=== PATIENT | female | born 1965 | race Caucasian/White ===

== ENCOUNTER 2020-11-06 19:40 | Inpatient (IN) ==
[2020-11-06 20:00] VITALS: BMI 34.2
--- NOTE | 2020-11-06 20:38 | DR.SOBA ---
HPI Time Seen Time Seen by Provider: 11/06/20 20:33 Primary Care Physician Primary Care Physician: Toro Complaints Chief Complaint Doctors Comments: on home O2 and worsening covid. 7 days s/p covid dx. Chief Complaint:: shortness of breath. On home O2 at 2 LPM, with home pulse ox running 88 without movement but drops to 86%. COVID-19 Coronavirus risk:travel/contact w/high risk person: Yes Has patient experienced Coronavirus symptoms: Yes Reviewed Nurses Notes Reviewed: Yes Source History Provided: Patient Mode of Arrival Mode of Arrival: Ambulatory Timing Onset of Chief Complaint: 11/04/20 PMH PMH Past Medical History: Yes Past Medical History: Hypertension Past Surgical History: No Family History History of Family Medical Conditions: Yes Family Medical History: Hypertension Infectious screening Have you traveled outside the country in the last 6 months?: No Isolation: Droplet ROS Review of Systems Constitutional: See HPI Eyes: No Symptoms Reported ENTM: No Symptoms Reported Respiratoy: See HPI Cardiovascular: No Symptoms Reported Gastrointestinal/Abdominal: No Symptoms Reported Genitourinary: No Symptoms Reported Neurological: No Symptoms Reported Musculoskeletal: No Symptoms Reported Integumentary: No Symptoms Reported All Other Systems: Reviewed and Negative PE Vital Signs Vitals: Temperature 98.2 F Pulse Rate [Apical] 84 Pulse Rate 82 Respiratory Rate 31 Blood Pressure [Left Arm] 143/82 Blood Pressure 159/75 O2 Sat by Pulse Oximetry 94 General General Appearance: Alert and In No Apparent Distress Head Head Exam: Normal Inspection, Atraumatic and Normocephalic Eyes Eye exam: Normal Appearance and PERRL ENT ENT Exam: Normal Exam Neck Neck Exam: Normal Inspection and Full ROM Respiratory Respiratory Exam: Normal Lung Sounds Bilat; negative Accessory Muscle Use Cardiovascular Cardiovascular Exam: Regular Rate and Normal Heart Sounds Abdominal Exam Abdominal Exam: Normal Inspection and Normal Bowel Sounds Extremities Extremities Exam: Normal Inspection and Full ROM Back Back Exam: Normal Inspection Neurologic Neurological Exam: Alert and Oriented X3 Skin Skin Exam: Warm, Dry and Intact COURSE Treatment Treatment: requiring NRB ROR Labs Reviewed Laboratory Results Reviewed?: Yes Result Diagrams: 11/06/20 20:41 11/06/20 20:41 Laboratory: WBC 11.9 X10^3/uL (3.6-10.0) H 11/06/20 20:41 RBC 4.59 X10^6/uL (3.5-5.4) 11/06/20 20:41 Hgb 16.0 g/dL (12.0-16.0) 11/06/20 20:41 Hct 44.8 % (36.0-47.0) 11/06/20 20:41 MCV 97.6 fL (80.0-100.0) 11/06/20 20:41 MCH 34.8 pg (27.0-34.0) H 11/06/20 20:41 MCHC 35.7 g/dL (33.0-35.0) H 11/06/20 20:41 RDW 12.5 % (11.6-16.5) 11/06/20 20: Plt Count 153 X10^3/uL (150.0-450.0) 11/06/20 20:41 Plt Count Comment Adequate (ADEQUATE) 11/06/20 20:41 MPV 8.3 fL (7.4-11.0) 11/06/20 20:41 Neut % (Auto) 91.8 % (42.0-75.0) H 11/06/20 20:41 Lymph % (Auto) 5.3 % (21.0-51.0) L 11/06/20 20:41 Cameron % (Auto) 2.2 % (0.0-13.0) 11/06/20 20:41 Eos % (Auto) 0.6 % (0.9-2.9) L 11/06/20 20:41 Baso % (Auto) 0.1 % (0.2-1.0) L 11/06/20 20:41 Neut # (Auto) 10.9 x10^3/uL (2.2-4.8) H 11/06/20 20:41 Lymph # (Auto) 0.6 X10^3/uL (1.3-2.9) L 11/06/20 20:41 Cameron # (Auto) 0.3 x10^3/uL (0.3-0.8) 11/06/20 20:41 Eos # (Auto) 0.1 x10^3/uL (0.0-0.2) 11/06/20 20:41 Baso # (Auto) 0.0 X10^3/uL (0.0-0.1) 11/06/20 20:41 Absolute Nucleated RBC 0.0 /100WBC 11/06/20 20:41 Total Counted 100 11/06/20 20:41 Neutrophils % (Manual) 91 % (39-76) H 11/06/20 20:41 Lymphocytes % (Manual) 8 % (13-43) L 11/06/20 20:41 Monocytes % (Manual) 1 % (4-9) L 11/06/20 20:41 Plt Morphology Comment Normal (NORMAL) 11/06/20 20:41 RBC Morphology Normal (NORMAL) 11/06/20 20:41 D-Dimer 0.96 ug/ml (0.0-0.57) H* 11/06/20 20:41 Sample Site Lrad 11/06/20 21:37 ABG pH 7.540 (7.35-7.45) H 11/06/20 21:37 ABG pCO2 33.0 mmHg (35.0-45.0) L 11/06/20 21:37 ABG pO2 60.0 mmHg (80.0-100.0) L 11/06/20 21:37 ABG HCO3 28.2 mmol/L (22-26) H 11/06/20 21:37 ABG O2 Saturation 94.0 % (90-100) 11/06/20 21:37 ABG Base Excess 5.8 mmol/L (-2.0-2.0) H 11/06/20 21:37 Michael Test Pos 11/06/20 21:37 A-a Gradient 212.0 mmHg 11/06/20 21:37 FiO2 44.0 11/06/20 21:37 Blood Gas Comments [facility] well 11/06/20 21:37 Sodium 136 mmol/L (136-145) 11/06/20 20:41 Corrected Sodium 138 mmol/L (136-145) 11/06/20 20:41 Potassium 4.0 mmol/L (3.5-5.1) 11/06/20 20:41 Chloride 99 mmol/L (98-107) 11/06/20 20:41 Carbon Dioxide 29.1 mmol/L (21-32) 11/06/20 20:41 BUN 10 mg/dL (7-18) 11/06/20 20:41 Creatinine 1.04 mg/dL (0.55-1.02) H 11/06/20 20:41 Est GFR (MDRD) Af Amer > 60 (>60) 11/06/20 20:41 Est GFR (MDRD) Non-Af 58 (>60) L 11/06/20 20:41 Glucose 198 mg/dL (65-99) H 11/06/20 20:41 Calcium 9.0 mg/dL (8.5-10.1) 11/06/20 20:41 Corrected Calcium 10.2 mg/dL (8.5-10.1) H 11/06/20 20:41 Ferritin 1723 ng/mL (8-252) H 11/06/20 20:41 Total Bilirubin 1.90 mg/dL (0.2-1.0) H 11/06/20 20:41 AST 54 Units/L (15-37) H 11/06/20 20:41 ALT 77 Units/L (12-78) 11/06/20 20:41 Alkaline Phosphatase 54 Units/L (46-116) 11/06/20 20:41 C-Reactive Protein 236.70 mg/L (0-3.0) H 11/06/20 20:41 B-Natriuretic Peptide 32.1 pg/mL (0-79) 11/06/20 20:41 Total Protein 7.3 g/dL (6.4-8.2) 11/06/20 20:41 Albumin 2.5 g/dL (3.4-5.0) L 11/06/20 20:41 Globulin 4.8 g/dL (2.5-4.5) H 11/06/20 20:41 Albumin/Globulin Ratio 0.5 Ratio (1.1-2.1) L 11/06/20 20:41 XRAY X-ray Results: CT neg for PE Opioid Opioid Risk Tool Age (Flo box if 16-45): No History of Preadolescent Sexual Abuse: No Total: 0 Total Score Risk Category: Low Risk Copyright: Dionisio TENORIO predicting aberrant behaviors Diagnosis Discharge Problem: COVID, Dyspnea ADDITIONAL NOTES Additional Notes Additional Notes: accepted per Dr Rivas
[2020-11-06 20:50] LABS: MEAN CORPUSCULAR HEMOGLOBIN 34.8 pg (27.0-34.0); MEAN CORPUSCULAR VOLUME 97.6 fL (80.0-100.0); WHITE BLOOD COUNT 11.9 X10^3/uL (3.6-10.0)
[2020-11-06 20:53] LABS: BASOPHILS % (AUTO) 0.1 % (0.2-1.0); EOSINOPHILS # (AUTO) 0.1 x10^3/uL (0.0-0.2); EOSINOPHILS % (AUTO) 0.6 % (0.9-2.9); HEMATOCRIT 44.8 % (36.0-47.0); LYMPHOCYTES # (AUTO) 0.6 X10^3/uL (1.3-2.9); LYMPHOCYTES % (AUTO) 5.3 % (21.0-51.0); MEAN CORPUSCULAR HGB CONC 35.7 g/dL (33.0-35.0); MEAN PLATELET VOLUME 8.3 fL (7.4-11.0); MONOCYTES # (AUTO) 0.3 x10^3/uL (0.3-0.8); MONOCYTES % (AUTO) 2.2 % (0.0-13.0); NEUTROPHILS # (AUTO) 10.9 x10^3/uL (2.2-4.8); NEUTROPHILS % (AUTO) 91.8 % (42.0-75.0); PLATELET COUNT 153 X10^3/uL (150.0-450.0); RED BLOOD COUNT 4.59 X10^6/uL (3.5-5.4); RED CELL DISTRIBUTION WIDTH 12.5 % (11.6-16.5)
--- NOTE | 2020-11-06 20:55 | RAD ---
CHEST, 1 VIEWHISTORY:shortness of breath. On home O2 at 2 LPM, with home pulse ox running 88 without movement but drops to 86%Study: Single view of the chest.Comparison:NoneFindings:Cardiomegaly and pulmonary vascular congestion. No focal consolidations, pleural effusions or pneumothorax. Osseous structures demonstrate no acute abnormality.IMPRESSION:1. Cardiomegaly and pulmonary vascular congestion.Electronically signed by: MACEY LOCKHART (Nov 06, 2020 20:53:40)
[2020-11-06 21:03] LABS: ALANINE AMINOTRANSFERASE 77 Units/L (12-78); ALBUMIN 2.5 g/dL (3.4-5.0); ALKALINE PHOSPHATASE 54 Units/L (46-116); ASPARTATE AMINO TRANSFERASE 54 Units/L (15-37); BLOOD UREA NITROGEN 10 mg/dL (7-18); CARBON DIOXIDE 29.1 mmol/L (21-32); CHLORIDE 99 mmol/L (98-107); COR CA(FOR HYPOALB) 10.2 mg/dL (8.5-10.1); COR NA(FOR HYPERGLY) 138 mmol/L (136-145); CREATININE 1.04 mg/dL (0.55-1.02); SODIUM 136 mmol/L (136-145); TOTAL PROTEIN 7.3 g/dL (6.4-8.2); eGFR NON BLACK RACES 58 (>60)
[2020-11-06 21:26] LABS: PLATELET MORPHOLOGY COMMENT NORMAL (NORMAL)
[2020-11-06 21:41] LABS: ABG BASE EXCESS 5.8 mmol/L (-2.0-2.0); ABG HCO3 28.2 mmol/L (22-26)
[2020-11-06 21:42] LABS: ABG ALLEN TEST POS
[2020-11-06] MEDS ORDERED: NS 100 ML IV 100 ML ONE (22:58)
[2020-11-06] MEDS: REMDESIVIR 200 MG in NS 100 ML IV 140 ML IV ONE (23:00)
--- NOTE | 2020-11-06 23:52 | CT ---
STUDY: CTA CHEST WITH IV CONTRASTCOMPARISON: NoneTECHNIQUE: axial images were acquired of the chest with IV contrast for a CT angiogram. Coronal and sagittal images were provided. All images were reviewed in a variety of windows and levels. 3D 8 mm thick MIPS images were provided.RADIATION REDUCTION TECHNIQUE: Automated exposure control, Adjustment of the mA and/or kV according to patient size, or iterative reconstruction techniques were used. 8 mm thick axial MIPS images were provided.HISTORY: shortness of breath. On home O2 at 2 LPM, with home pulse ox running 88 without movement but drops to 86%. ^ D-DIMER .96FINDINGS:CHEST:THYROID GLANDS: The thyroid gland is unremarkable.HEART AND VESSELS: The heart size is within normal limits.There is no evidence of pericardial effusion. Thoracic aorta is normal size without evidence of an aneurysm or dissection.Main pulmonary artery size is within normal limits. There are no filling defect seen within the visualized pulmonary arteries to suggest a pulmonary embolism.LYMPH NODES: There is no evidence of axillary, mediastinal, or hilar lymphadenopathy.AIRWAY: The trachea and mainstem bronchi are patent.No intraluminal lesions are seen.LUNGS: Diffuse ground-glass opacities are noted throughout the right and left lung involving the subpleural surface and major fissures.ESOPHAGUS: The esophagus is grossly unremarkable.BONES: The visualized bones demonstrate degenerative changes. There are no concerning lytic or blastic lesions identified.UPPER ABDOMINAL STRUCTURES: The visualized upper abdominal structures demonstrate prominence of the right and left collecting system seen as symmetric bilateral hydronephrosis.IMPRESSSION:1. No evidence of pulmonary embolism, thoracic aortic aneurysm, or dissection2. Heart size is normal and there is no evidence of pericardial effusion3. The above findings demonstrate COMMON CT imaging features of COVID-19 pneumonia. Reference: Luis et al. Radiology. 2020Electronically signed by: Russell Smyth (Nov 06, 2020 23:50:16)
[2020-11-07] MEDS ORDERED: REGEN-COV VIAL 10 ML, DRUG FILTER EXTENSION SET * 1 EA in NS 100 ML IV 100 ML IV ONE ×2 (00:24)
[2020-11-07] MEDS ORDERED: DECADRON INJ ONE (01:42)
[2020-11-07] MEDS ORDERED: REMDESIVIR IV ONE (01:43)
[2020-11-07] MEDS ORDERED: NS 100 ML IV 100 ML ONE ×2 (01:43→08:41)
[2020-11-07] MEDS: DECADRON INJ IVP ONE ×2 (02:03→02:04)
[2020-11-07] MEDS: REMDESIVIR 200 MG in NS 100 ML IV 140 ML IV ONE (02:04)
[2020-11-07] MEDS ORDERED: ROCEPHIN 1 GRAM IV PREMIX 1 G/50 ML IV.SOLN. IV ONE ×2 (04:04→04:07)
[2020-11-07] MEDS ORDERED: NS 500 ML IV 500 ML IV ONE (04:14)
[2020-11-07] MEDS ORDERED: PHARMACY CONSULT - IVERMECTIN XX SCH (08:00)
[2020-11-07] MEDS ORDERED: PHARMACY CONSULT - LOVENOX XX SCH (08:00)
[2020-11-07] MEDS: PULMICORT NEB TX 0.5 MG NEB SCH ×2 (08:30→21:00)
[2020-11-07] MEDS: BROVANA IN SCH ×2 (08:30→21:00)
[2020-11-07] MEDS ORDERED: THIAMINE HCL INJ ONE (08:39)
[2020-11-07] MEDS ORDERED: PROTONIX TAB 40 MG PO ONE (08:39)
[2020-11-07] MEDS ORDERED: IVERMECTIN ONE (08:39)
[2020-11-07] MEDS ORDERED: ZINC SULFATE ONE (08:40)
[2020-11-07] MEDS ORDERED: ASCORBIC ACID INJ MULTI-DOSE VIAL IV ONE (08:40)
[2020-11-07] MEDS ORDERED: LIPITOR TAB 80 MG ONE (08:40)
[2020-11-07] MEDS ORDERED: PEPCID TAB 40 MG ONE (08:40)
[2020-11-07] MEDS ORDERED: SOLU-Medrol 40 MG VIAL ONE ×2 (08:40→14:49)
[2020-11-07] MEDS ORDERED: NS 1000 ML 1,000 ML ONE (08:40)
[2020-11-07] MEDS: IVERMECTIN PO SCH (08:58)
[2020-11-07] MEDS: ASCORBIC ACID INJ MULTI-DOSE VIAL 1,500 MG in NS 100 ML IV 100 ML IV SCH ×4 (08:58→22:00)
[2020-11-07] MEDS: ZINC SULFATE PO SCH ×2 (08:59→22:00)
[2020-11-07] MEDS: LIPITOR TAB 80 MG PO SCH (08:59)
[2020-11-07] MEDS: SOLU-Medrol 125 MG VIAL IVP SCH ×3 (09:00→22:00)
[2020-11-07] MEDS: PEPCID TAB 40 MG PO SCH ×2 (09:00→22:00)
[2020-11-07] MEDS ORDERED: BROVANA IN SCH (09:00)
[2020-11-07] MEDS ORDERED: VITAMIN A PO SCH (09:00)
[2020-11-07] MEDS ORDERED: PULMICORT NEB TX 0.5 MG NEB SCH (09:00)
[2020-11-07] MEDS ORDERED: VITAMIN D (1.25MG) PO SCH (09:00)
[2020-11-07] MEDS: THIAMINE HCL INJ IVP SCH ×2 (09:01→22:00)
[2020-11-07] MEDS: PROTONIX INJ 40 MG VIAL IVP SCH ×2 (09:01→22:00)
[2020-11-07] MEDS ORDERED: LOVENOX INJ 100 MG SYR SC ONE (09:11)
[2020-11-07] MEDS: LOVENOX INJ 100 MG SYR SC SCH ×2 (10:24→22:00)
[2020-11-07] MEDS: CYTOTEC PO SCH ×2 (15:14→22:00)
[2020-11-07] MEDS: MELATONIN PO SCH (22:00)
[2020-11-08] MEDS: NS 1000 ML 1,000 ML IV SCH ×2 (00:24→09:08)
[2020-11-08] MEDS: ASCORBIC ACID INJ MULTI-DOSE VIAL 1,500 MG in NS 100 ML IV 100 ML IV SCH ×4 (02:35→21:47)
[2020-11-08 05:19] LABS: BASOPHILS % (AUTO) 0 % (0.2-1.0); HEMATOCRIT 38.9 % (36.0-47.0); LYMPHOCYTES # (AUTO) 0.4 X10^3/uL (1.3-2.9); LYMPHOCYTES % (AUTO) 5.2 % (21.0-51.0); MEAN CORPUSCULAR HEMOGLOBIN 34.9 pg (27.0-34.0); MEAN CORPUSCULAR VOLUME 96.8 fL (80.0-100.0); MEAN PLATELET VOLUME 8.8 fL (7.4-11.0); MONOCYTES # (AUTO) 0.1 x10^3/uL (0.3-0.8); MONOCYTES % (AUTO) 1.7 % (0.0-13.0); NEUTROPHILS # (AUTO) 6.4 x10^3/uL (2.2-4.8); NEUTROPHILS % (AUTO) 93.1 % (42.0-75.0); PLATELET COUNT 147 X10^3/uL (150.0-450.0); RED BLOOD COUNT 4.02 X10^6/uL (3.5-5.4); RED CELL DISTRIBUTION WIDTH 12.1 % (11.6-16.5); WHITE BLOOD COUNT 6.9 X10^3/uL (3.6-10.0)
[2020-11-08 05:30] LABS: ALANINE AMINOTRANSFERASE 53 Units/L (12-78); ALBUMIN 2.1 g/dL (3.4-5.0); ALKALINE PHOSPHATASE 47 Units/L (46-116); ASPARTATE AMINO TRANSFERASE 34 Units/L (15-37); BLOOD UREA NITROGEN 21 mg/dL (7-18); CALCIUM 8.6 mg/dL (8.5-10.1); CARBON DIOXIDE 30.6 mmol/L (21-32); CHLORIDE 102 mmol/L (98-107); COR CA(FOR HYPOALB) 10.1 mg/dL (8.5-10.1); COR NA(FOR HYPERGLY) 142 mmol/L (136-145); CREATININE 1.08 mg/dL (0.55-1.02); SODIUM 139 mmol/L (136-145); eGFR NON BLACK RACES 56 (>60)
[2020-11-08] MEDS: CYTOTEC PO SCH ×3 (06:17→21:48)
[2020-11-08] MEDS: SOLU-Medrol 125 MG VIAL IVP SCH ×3 (06:17→21:47)
[2020-11-08 06:23] LABS: PLATELET MORPHOLOGY COMMENT NORMAL (NORMAL)
[2020-11-08] MEDS: IVERMECTIN PO SCH (09:04)
[2020-11-08] MEDS: LIPITOR TAB 80 MG PO SCH (09:05)
[2020-11-08] MEDS: LOVENOX INJ 100 MG SYR SC SCH ×2 (09:05→21:47)
[2020-11-08] MEDS: ZINC SULFATE PO SCH ×2 (09:06→21:46)
[2020-11-08] MEDS: THIAMINE HCL INJ IVP SCH ×2 (09:06→21:48)
[2020-11-08] MEDS: PROTONIX INJ 40 MG VIAL IVP SCH ×2 (09:06→21:48)
[2020-11-08] MEDS: PEPCID TAB 40 MG PO SCH ×2 (09:06→21:46)
[2020-11-08] MEDS: PULMICORT NEB TX 0.5 MG NEB SCH ×2 (09:34→20:35)
[2020-11-08] MEDS: BROVANA IN SCH ×2 (09:34→20:35)
[2020-11-08] MEDS ORDERED: CALAN SR 240 MG PO SCH (10:00)
[2020-11-08] MEDS ORDERED: CALAN SR 180 MG PO ONE (11:06)
[2020-11-08] MEDS: CALAN SR 180 MG PO SCH (11:20)
[2020-11-08] MEDS: SYNTHROID 25 mcg TAB PO SCH (11:21)
[2020-11-08] MEDS: MELATONIN PO SCH (21:48)
[2020-11-09] MEDS: ASCORBIC ACID INJ MULTI-DOSE VIAL 1,500 MG in NS 100 ML IV 100 ML IV SCH ×4 (02:13→21:00)
[2020-11-09] MEDS: SOLU-Medrol 125 MG VIAL IVP SCH ×3 (05:26→20:59)
[2020-11-09] MEDS: CYTOTEC PO SCH ×3 (05:26→20:59)
[2020-11-09 06:06] LABS: BASOPHILS % (AUTO) 0.3 % (0.2-1.0); HEMOGLOBIN 13.7 g/dL (12.0-16.0); LYMPHOCYTES # (AUTO) 0.2 X10^3/uL (1.3-2.9); LYMPHOCYTES % (AUTO) 2.8 % (21.0-51.0); MEAN CORPUSCULAR HEMOGLOBIN 34.7 pg (27.0-34.0); MEAN CORPUSCULAR HGB CONC 35.2 g/dL (33.0-35.0); MEAN CORPUSCULAR VOLUME 98.5 fL (80.0-100.0); MEAN PLATELET VOLUME 8.7 fL (7.4-11.0); MONOCYTES # (AUTO) 0.2 x10^3/uL (0.3-0.8); MONOCYTES % (AUTO) 2.4 % (0.0-13.0); NEUTROPHILS # (AUTO) 8.2 x10^3/uL (2.2-4.8); NEUTROPHILS % (AUTO) 94.5 % (42.0-75.0); PLATELET COUNT 147 X10^3/uL (150.0-450.0); RED BLOOD COUNT 3.96 X10^6/uL (3.5-5.4); RED CELL DISTRIBUTION WIDTH 12.3 % (11.6-16.5); WHITE BLOOD COUNT 8.7 X10^3/uL (3.6-10.0)
[2020-11-09 06:08] LABS: ABG ALLEN TEST POS; ABG BASE EXCESS 3.2 mmol/L (-2.0-2.0); ABG HCO3 26.9 mmol/L (22-26)
[2020-11-09 06:58] LABS: ALANINE AMINOTRANSFERASE 52 Units/L (12-78); ALKALINE PHOSPHATASE 57 Units/L (46-116); ASPARTATE AMINO TRANSFERASE 41 Units/L (15-37); BLOOD UREA NITROGEN 22 mg/dL (7-18); CALCIUM 8.2 mg/dL (8.5-10.1); CARBON DIOXIDE 26.7 mmol/L (21-32); CHLORIDE 103 mmol/L (98-107); COR CA(FOR HYPOALB) 9.8 mg/dL (8.5-10.1); COR NA(FOR HYPERGLY) 143 mmol/L (136-145); CREATININE 1.12 mg/dL (0.55-1.02); SODIUM 139 mmol/L (136-145); TOTAL PROTEIN 6.6 g/dL (6.4-8.2); eGFR NON BLACK RACES 53 (>60)
--- NOTE | 2020-11-09 07:18 | RAD ---
HISTORYCOVID+STUDYCHEST, 1 [id number]/23/2021.TECHNIQUEAP view of the chestFINDINGSCardiac and mediastinal contours are within normal limits. No significant change mid and lower lung predominant hazy opacities. No definite pleural effusion or pneumothorax. Soft tissue attenuation limits evaluation.IMPRESSIONNo significant change in COVID pneumonia.Electronically signed by: London Moody (Nov 09, 2020 07:15:58)
[2020-11-09 08:24] LABS: PLATELET MORPHOLOGY COMMENT NORMAL (NORMAL)
[2020-11-09] MEDS: PULMICORT NEB TX 0.5 MG NEB SCH ×2 (09:12→21:10)
[2020-11-09] MEDS: BROVANA IN SCH ×2 (09:12→21:10)
[2020-11-09] MEDS: LOVENOX INJ 100 MG SYR SC SCH ×2 (10:00→20:58)
[2020-11-09] MEDS: PROTONIX INJ 40 MG VIAL IVP SCH ×2 (10:30→20:58)
[2020-11-09] MEDS: ACTOS PO SCH (10:32)
[2020-11-09] MEDS: GLUCOPHAGE XR 24-HR PO SCH ×2 (10:33→20:58)
[2020-11-09] MEDS: THIAMINE HCL INJ IVP SCH ×2 (10:33→21:00)
[2020-11-09] MEDS: CALAN SR 180 MG PO SCH (10:34)
[2020-11-09] MEDS: PEPCID TAB 40 MG PO SCH ×2 (10:34→20:59)
[2020-11-09] MEDS: VITAMIN D3 125 mcg (5,000 UNITS) PO SCH (10:34)
[2020-11-09] MEDS: SYNTHROID 25 mcg TAB PO SCH (10:34)
[2020-11-09] MEDS: NS 1000 ML 1,000 ML IV SCH (10:35)
[2020-11-09] MEDS: LIPITOR TAB 80 MG PO SCH (10:35)
[2020-11-09] MEDS: ZINC SULFATE PO SCH ×2 (10:35→20:59)
[2020-11-09] MEDS: IVERMECTIN PO SCH (10:35)
[2020-11-09] MEDS: VITAMIN A PO SCH (10:36)
[2020-11-09] MEDS: MELATONIN PO SCH (20:59)
[2020-11-09] MEDS: FLEXERIL TAB 10 MG PO PRN (20:59)
[2020-11-10] MEDS: ASCORBIC ACID INJ MULTI-DOSE VIAL 1,500 MG in NS 100 ML IV 100 ML IV SCH ×4 (02:31→21:30)
[2020-11-10] MEDS: SOLU-Medrol 125 MG VIAL IVP SCH ×3 (05:33→21:31)
[2020-11-10] MEDS: NS 1000 ML 1,000 ML IV SCH ×2 (05:33→08:33)
[2020-11-10] MEDS: CYTOTEC PO SCH ×3 (05:33→21:31)
[2020-11-10 05:56] LABS: ALANINE AMINOTRANSFERASE 50 Units/L (12-78); ALKALINE PHOSPHATASE 62 Units/L (46-116); ASPARTATE AMINO TRANSFERASE 45 Units/L (15-37); BLOOD UREA NITROGEN 20 mg/dL (7-18); CARBON DIOXIDE 25.3 mmol/L (21-32); CHLORIDE 102 mmol/L (98-107); COR CA(FOR HYPOALB) 9.6 mg/dL (8.5-10.1); COR NA(FOR HYPERGLY) 142 mmol/L (136-145); CREATININE 1.14 mg/dL (0.55-1.02); SODIUM 138 mmol/L (136-145); TOTAL PROTEIN 6.4 g/dL (6.4-8.2); eGFR NON BLACK RACES 52 (>60)
[2020-11-10 06:12] LABS: BASOPHILS % (AUTO) 0 % (0.2-1.0); HEMATOCRIT 39.8 % (36.0-47.0); LYMPHOCYTES # (AUTO) 0.2 X10^3/uL (1.3-2.9); LYMPHOCYTES % (AUTO) 3.3 % (21.0-51.0); MEAN CORPUSCULAR HEMOGLOBIN 34.7 pg (27.0-34.0); MEAN CORPUSCULAR HGB CONC 35.1 g/dL (33.0-35.0); MEAN CORPUSCULAR VOLUME 98.7 fL (80.0-100.0); MEAN PLATELET VOLUME 8.6 fL (7.4-11.0); MONOCYTES # (AUTO) 0.2 x10^3/uL (0.3-0.8); MONOCYTES % (AUTO) 2.4 % (0.0-13.0); NEUTROPHILS % (AUTO) 94.3 % (42.0-75.0); PLATELET COUNT 138 X10^3/uL (150.0-450.0); RED BLOOD COUNT 4.04 X10^6/uL (3.5-5.4); RED CELL DISTRIBUTION WIDTH 12.4 % (11.6-16.5); WHITE BLOOD COUNT 6.3 X10^3/uL (3.6-10.0)
[2020-11-10 07:12] LABS: PLATELET MORPHOLOGY COMMENT NORMAL (NORMAL)
[2020-11-10] MEDS: LOVENOX INJ 100 MG SYR SC SCH ×2 (08:31→21:58)
[2020-11-10] MEDS: PROTONIX INJ 40 MG VIAL IVP SCH ×2 (08:31→21:31)
[2020-11-10] MEDS: PEPCID TAB 40 MG PO SCH ×2 (08:32→21:30)
[2020-11-10] MEDS: CALAN SR 180 MG PO SCH (08:32)
[2020-11-10] MEDS: IVERMECTIN PO SCH (08:32)
[2020-11-10] MEDS: GLUCOPHAGE XR 24-HR PO SCH ×2 (08:32→21:30)
[2020-11-10] MEDS: LIPITOR TAB 80 MG PO SCH (08:33)
[2020-11-10] MEDS: ACTOS PO SCH (08:33)
[2020-11-10] MEDS: SYNTHROID 25 mcg TAB PO SCH (08:33)
[2020-11-10] MEDS: VITAMIN D3 125 mcg (5,000 UNITS) PO SCH (08:34)
[2020-11-10] MEDS: VITAMIN A PO SCH (08:34)
[2020-11-10] MEDS: THIAMINE HCL INJ IVP SCH ×2 (08:34→21:31)
[2020-11-10] MEDS: ZINC SULFATE PO SCH ×2 (08:34→21:31)
[2020-11-10] MEDS: PULMICORT NEB TX 0.5 MG NEB SCH ×2 (10:20→21:55)
[2020-11-10] MEDS: BROVANA IN SCH ×2 (10:20→21:55)
[2020-11-10] MEDS: MELATONIN PO SCH (21:30)
[2020-11-10] MEDS: FLEXERIL TAB 10 MG PO PRN (21:31)
[2020-11-11] MEDS: ASCORBIC ACID INJ MULTI-DOSE VIAL 1,500 MG in NS 100 ML IV 100 ML IV SCH ×4 (02:24→20:34)
[2020-11-11] MEDS: SOLU-Medrol 125 MG VIAL IVP SCH ×3 (05:29→20:46)
[2020-11-11] MEDS: CYTOTEC PO SCH ×3 (05:29→21:00)
[2020-11-11] MEDS: NS 1000 ML 1,000 ML IV SCH (08:06)
[2020-11-11] MEDS: BROVANA IN SCH ×2 (09:05→22:00)
[2020-11-11] MEDS: PULMICORT NEB TX 0.5 MG NEB SCH ×2 (09:05→22:00)
[2020-11-11] MEDS: PROTONIX INJ 40 MG VIAL IVP SCH ×2 (09:27→20:45)
[2020-11-11] MEDS: GLUCOPHAGE XR 24-HR PO SCH ×2 (09:27→20:37)
[2020-11-11] MEDS: CALAN SR 180 MG PO SCH (09:28)
[2020-11-11] MEDS: PEPCID TAB 40 MG PO SCH ×2 (09:28→20:37)
[2020-11-11] MEDS: IVERMECTIN PO SCH (09:28)
[2020-11-11] MEDS: VITAMIN D3 125 mcg (5,000 UNITS) PO SCH (09:29)
[2020-11-11] MEDS: ZINC SULFATE PO SCH ×2 (09:29→20:37)
[2020-11-11] MEDS: LIPITOR TAB 80 MG PO SCH (09:29)
[2020-11-11] MEDS: ACTOS PO SCH (09:29)
[2020-11-11] MEDS: SYNTHROID 25 mcg TAB PO SCH (09:29)
[2020-11-11] MEDS: THIAMINE HCL INJ IVP SCH ×2 (09:29→20:44)
[2020-11-11] MEDS: VITAMIN A PO SCH (09:29)
[2020-11-11] MEDS: LOVENOX INJ 100 MG SYR SC SCH ×2 (10:21→20:42)
[2020-11-11] MEDS: MELATONIN PO SCH (20:37)
[2020-11-12] MEDS: SOLU-Medrol 125 MG VIAL IVP SCH ×4 (01:54→22:24)
[2020-11-12] MEDS: ASCORBIC ACID INJ MULTI-DOSE VIAL 1,500 MG in NS 100 ML IV 100 ML IV SCH ×4 (02:03→22:26)
[2020-11-12] MEDS: NS 1000 ML 1,000 ML IV SCH ×2 (03:28→20:19)
[2020-11-12] MEDS: CYTOTEC PO SCH ×3 (05:01→22:23)
[2020-11-12 05:53] LABS: BASOPHILS % (AUTO) 0.2 % (0.2-1.0); HEMATOCRIT 38.9 % (36.0-47.0); HEMOGLOBIN 13.7 g/dL (12.0-16.0); LYMPHOCYTES # (AUTO) 0.2 X10^3/uL (1.3-2.9); LYMPHOCYTES % (AUTO) 2.1 % (21.0-51.0); MEAN CORPUSCULAR HEMOGLOBIN 34.2 pg (27.0-34.0); MEAN CORPUSCULAR HGB CONC 35.1 g/dL (33.0-35.0); MEAN CORPUSCULAR VOLUME 97.4 fL (80.0-100.0); MEAN PLATELET VOLUME 8.9 fL (7.4-11.0); MONOCYTES # (AUTO) 0.1 x10^3/uL (0.3-0.8); MONOCYTES % (AUTO) 1.2 % (0.0-13.0); NEUTROPHILS # (AUTO) 6.9 x10^3/uL (2.2-4.8); NEUTROPHILS % (AUTO) 96.5 % (42.0-75.0); PLATELET COUNT 100 X10^3/uL (150.0-450.0); RED CELL DISTRIBUTION WIDTH 12.2 % (11.6-16.5); WHITE BLOOD COUNT 7.2 X10^3/uL (3.6-10.0)
[2020-11-12 06:14] LABS: ALANINE AMINOTRANSFERASE 62 Units/L (12-78); ALKALINE PHOSPHATASE 79 Units/L (46-116); ASPARTATE AMINO TRANSFERASE 63 Units/L (15-37); BLOOD UREA NITROGEN 18 mg/dL (7-18); CALCIUM 7.3 mg/dL (8.5-10.1); CARBON DIOXIDE 29.7 mmol/L (21-32); CHLORIDE 104 mmol/L (98-107); COR CA(FOR HYPOALB) 8.9 mg/dL (8.5-10.1); COR NA(FOR HYPERGLY) 144 mmol/L (136-145); SODIUM 141 mmol/L (136-145); TOTAL PROTEIN 5.6 g/dL (6.4-8.2); eGFR NON BLACK RACES > 60 (>60)
[2020-11-12] MEDS: BROVANA IN SCH ×2 (08:39→21:08)
[2020-11-12] MEDS: PULMICORT NEB TX 0.5 MG NEB SCH ×2 (08:39→21:08)
[2020-11-12 09:02] LABS: PLATELET MORPHOLOGY COMMENT NORMAL (NORMAL)
[2020-11-12] MEDS: GLUCOPHAGE XR 24-HR PO SCH ×2 (09:28→22:24)
[2020-11-12] MEDS: ZINC SULFATE PO SCH ×2 (09:28→22:23)
[2020-11-12] MEDS: ACTOS PO SCH (09:28)
[2020-11-12] MEDS: CALAN SR 180 MG PO SCH (09:28)
[2020-11-12] MEDS: SYNTHROID 25 mcg TAB PO SCH (09:28)
[2020-11-12] MEDS: PROTONIX INJ 40 MG VIAL IVP SCH ×2 (09:29→22:25)
[2020-11-12] MEDS: LIPITOR TAB 80 MG PO SCH (09:29)
[2020-11-12] MEDS: LOVENOX INJ 100 MG SYR SC SCH (09:29)
[2020-11-12] MEDS: THIAMINE HCL INJ IVP SCH ×2 (09:30→22:23)
[2020-11-12] MEDS: VITAMIN A PO SCH (09:30)
[2020-11-12] MEDS: VITAMIN D3 125 mcg (5,000 UNITS) PO SCH (09:31)
[2020-11-12] MEDS: PEPCID TAB 40 MG PO SCH ×2 (09:49→22:25)
[2020-11-12] MEDS ORDERED: NS 1/2 1000 ML IV 1,000 ML IV ONE ×2 (12:55→20:47)
[2020-11-12] MEDS: NS 1/2 1000 ML IV 1,000 ML IV SCH ×2 (12:56→22:20)
[2020-11-12] MEDS: ELIQUIS PO SCH ×2 (12:56→22:24)
[2020-11-12] MEDS: PERIACTIN TAB 4 MG PO PRN (22:24)
[2020-11-12] MEDS: MELATONIN PO SCH (22:25)
[2020-11-12] MEDS: MAGIC MOUTHWASH MT SCH (22:27)
[2020-11-13] MEDS: SOLU-Medrol 125 MG VIAL IVP SCH ×4 (02:14→22:31)
[2020-11-13] MEDS: ASCORBIC ACID INJ MULTI-DOSE VIAL 1,500 MG in NS 100 ML IV 100 ML IV SCH ×4 (02:14→22:33)
[2020-11-13] MEDS ORDERED: NS 1/2 1000 ML IV 1,000 ML IV ONE ×2 (04:09→15:36)
[2020-11-13] MEDS: CYTOTEC PO SCH ×3 (05:05→22:30)
[2020-11-13] MEDS: MAALOX or MYLANTA PO PRN (05:30)
[2020-11-13 06:07] LABS: BASOPHILS % (AUTO) 0.2 % (0.2-1.0); HEMATOCRIT 38.7 % (36.0-47.0); HEMOGLOBIN 13.6 g/dL (12.0-16.0); LYMPHOCYTES # (AUTO) 0.1 X10^3/uL (1.3-2.9); LYMPHOCYTES % (AUTO) 1.5 % (21.0-51.0); MEAN CORPUSCULAR HEMOGLOBIN 34.6 pg (27.0-34.0); MEAN CORPUSCULAR HGB CONC 35.3 g/dL (33.0-35.0); MEAN PLATELET VOLUME 8.8 fL (7.4-11.0); MONOCYTES # (AUTO) 0.1 x10^3/uL (0.3-0.8); MONOCYTES % (AUTO) 1.2 % (0.0-13.0); NEUTROPHILS # (AUTO) 8.2 x10^3/uL (2.2-4.8); NEUTROPHILS % (AUTO) 97.1 % (42.0-75.0); PLATELET COUNT 96 X10^3/uL (150.0-450.0); RED BLOOD COUNT 3.95 X10^6/uL (3.5-5.4); RED CELL DISTRIBUTION WIDTH 12.3 % (11.6-16.5); WHITE BLOOD COUNT 8.4 X10^3/uL (3.6-10.0)
[2020-11-13 06:10] LABS: ALANINE AMINOTRANSFERASE 53 Units/L (12-78); ALBUMIN 1.8 g/dL (3.4-5.0); ALKALINE PHOSPHATASE 95 Units/L (46-116); ASPARTATE AMINO TRANSFERASE 49 Units/L (15-37); BLOOD UREA NITROGEN 19 mg/dL (7-18); CALCIUM 7.6 mg/dL (8.5-10.1); CARBON DIOXIDE 28.5 mmol/L (21-32); CHLORIDE 105 mmol/L (98-107); COR CA(FOR HYPOALB) 9.4 mg/dL (8.5-10.1); COR NA(FOR HYPERGLY) 143 mmol/L (136-145); CREATININE 0.82 mg/dL (0.55-1.02); SODIUM 140 mmol/L (136-145); TOTAL PROTEIN 5.9 g/dL (6.4-8.2); eGFR NON BLACK RACES > 60 (>60)
[2020-11-13 07:57] LABS: PLATELET MORPHOLOGY COMMENT NORMAL (NORMAL)
[2020-11-13] MEDS: BROVANA IN SCH ×2 (08:55→20:50)
[2020-11-13] MEDS: PULMICORT NEB TX 0.5 MG NEB SCH ×2 (08:55→20:50)
[2020-11-13] MEDS ORDERED: SOLU-Medrol 125 MG VIAL IVP SCH (09:00)
[2020-11-13] MEDS: PERIACTIN TAB 4 MG PO PRN ×2 (11:06→22:31)
[2020-11-13] MEDS: PEPCID TAB 40 MG PO SCH ×2 (11:07→22:29)
[2020-11-13] MEDS: ELIQUIS PO SCH ×2 (11:07→22:28)
[2020-11-13] MEDS: ZINC SULFATE PO SCH ×2 (11:07→22:30)
[2020-11-13] MEDS: THIAMINE HCL INJ IVP SCH ×2 (11:08→22:32)
[2020-11-13] MEDS: LIPITOR TAB 80 MG PO SCH (11:08)
[2020-11-13] MEDS: ACTOS PO SCH (11:08)
[2020-11-13] MEDS: GLUCOPHAGE XR 24-HR PO SCH ×2 (11:08→22:28)
[2020-11-13] MEDS: VITAMIN A PO SCH (11:09)
[2020-11-13] MEDS: PROTONIX INJ 40 MG VIAL IVP SCH ×2 (11:11→22:30)
[2020-11-13] MEDS: VITAMIN D3 125 mcg (5,000 UNITS) PO SCH (11:21)
[2020-11-13] MEDS: MAGIC MOUTHWASH MT SCH ×4 (11:21→22:34)
[2020-11-13] MEDS: SYNTHROID 25 mcg TAB PO SCH (11:21)
[2020-11-13] MEDS: CALAN SR 180 MG PO SCH (11:21)
[2020-11-13] MEDS: NS 1/2 1000 ML IV 1,000 ML IV SCH ×2 (15:43→17:45)
[2020-11-13] MEDS ORDERED: POTASSIUM CHL 40 MEQ/NS 0.45% 500 ML IV PRN (19:48)
[2020-11-13] MEDS ORDERED: POTASSIUM CHL 60 MEQ/NS 0.45% 500 ML IV PRN (19:48)
[2020-11-13] MEDS ORDERED: POTASSIUM CHLORIDE LIQ 20 MEQ UDC PO PRN (19:48)
[2020-11-13] MEDS ORDERED: MICRO K EXTEN CAP 10 MEQ PO PRN (19:48)
[2020-11-13] MEDS: MELATONIN PO SCH (22:29)
[2020-11-13] MEDS: K-DUR TAB 20 MEQ PO PRN (22:31)
[2020-11-14] MEDS: SOLU-Medrol 125 MG VIAL IVP SCH ×4 (02:12→22:00)
[2020-11-14] MEDS: NS 1/2 1000 ML IV 1,000 ML IV SCH ×3 (02:13→21:56)
[2020-11-14] MEDS: ASCORBIC ACID INJ MULTI-DOSE VIAL 1,500 MG in NS 100 ML IV 100 ML IV SCH ×4 (02:14→21:56)
[2020-11-14] MEDS: CYTOTEC PO SCH ×3 (05:01→21:36)
[2020-11-14 05:59] LABS: BASOPHILS % (AUTO) 0 % (0.2-1.0); HEMATOCRIT 40.1 % (36.0-47.0); HEMOGLOBIN 14.2 g/dL (12.0-16.0); LYMPHOCYTES # (AUTO) 0.1 X10^3/uL (1.3-2.9); LYMPHOCYTES % (AUTO) 1.6 % (21.0-51.0); MEAN CORPUSCULAR HEMOGLOBIN 34.7 pg (27.0-34.0); MEAN CORPUSCULAR HGB CONC 35.4 g/dL (33.0-35.0); MEAN CORPUSCULAR VOLUME 98.1 fL (80.0-100.0); MEAN PLATELET VOLUME 9.7 fL (7.4-11.0); MONOCYTES # (AUTO) 0.2 x10^3/uL (0.3-0.8); MONOCYTES % (AUTO) 2.1 % (0.0-13.0); NEUTROPHILS # (AUTO) 7.4 x10^3/uL (2.2-4.8); NEUTROPHILS % (AUTO) 96.3 % (42.0-75.0); PLATELET COUNT 98 X10^3/uL (150.0-450.0); RED BLOOD COUNT 4.09 X10^6/uL (3.5-5.4); RED CELL DISTRIBUTION WIDTH 12.1 % (11.6-16.5); WHITE BLOOD COUNT 7.7 X10^3/uL (3.6-10.0)
[2020-11-14 06:06] LABS: ALANINE AMINOTRANSFERASE 50 Units/L (12-78); ALBUMIN 1.8 g/dL (3.4-5.0); ALKALINE PHOSPHATASE 110 Units/L (46-116); ASPARTATE AMINO TRANSFERASE 53 Units/L (15-37); BLOOD UREA NITROGEN 20 mg/dL (7-18); CALCIUM 7.5 mg/dL (8.5-10.1); CHLORIDE 104 mmol/L (98-107); COR CA(FOR HYPOALB) 9.3 mg/dL (8.5-10.1); COR NA(FOR HYPERGLY) 144 mmol/L (136-145); CREATININE 0.86 mg/dL (0.55-1.02); SODIUM 141 mmol/L (136-145); TOTAL PROTEIN 5.9 g/dL (6.4-8.2); eGFR NON BLACK RACES > 60 (>60)
[2020-11-14 07:44] LABS: BAND NEUTROPHILS % 5 % (0-10)
[2020-11-14 07:45] LABS: PLATELET MORPHOLOGY COMMENT NORMAL (NORMAL)
--- NOTE | 2020-11-14 08:20 | RAD ---
HISTORYCOVID+STUDYCHEST, 1 [id number]/26/2021FINDINGSThe cardiomediastinal silhouette is stable. Significant worsening of bilateral airspace opacities. The bony thorax appears intact.IMPRESSIONWorsening bilateral airspace opacities. Recommend follow-up to resolution.Electronically signed by: HERRERA WEBER (Nov 14, 2020 08:18:29)
[2020-11-14] MEDS: PULMICORT NEB TX 0.5 MG NEB SCH ×2 (08:51→20:51)
[2020-11-14] MEDS: BROVANA IN SCH ×2 (08:51→21:50)
[2020-11-14] MEDS: CALAN SR 180 MG PO SCH (09:39)
[2020-11-14] MEDS: ACTOS PO SCH (09:39)
[2020-11-14] MEDS: GLUCOPHAGE XR 24-HR PO SCH ×2 (09:40→21:36)
[2020-11-14] MEDS: ELIQUIS PO SCH ×2 (09:40→21:36)
[2020-11-14] MEDS: PEPCID TAB 40 MG PO SCH ×2 (09:41→21:36)
[2020-11-14] MEDS: MAGIC MOUTHWASH MT SCH ×4 (09:41→21:37)
[2020-11-14] MEDS: LIPITOR TAB 80 MG PO SCH (09:41)
[2020-11-14] MEDS: PROTONIX INJ 40 MG VIAL IVP SCH ×2 (09:41→21:59)
[2020-11-14] MEDS: VITAMIN A PO SCH (09:42)
[2020-11-14] MEDS: SYNTHROID 25 mcg TAB PO SCH (09:42)
[2020-11-14] MEDS: ZINC SULFATE PO SCH ×2 (09:43→21:36)
[2020-11-14] MEDS: VITAMIN D3 125 mcg (5,000 UNITS) PO SCH (09:43)
[2020-11-14] MEDS: THIAMINE HCL INJ IVP SCH ×2 (09:43→21:59)
[2020-11-14] MEDS: DIFLUCAN 200 MG IV PREMIX* 200 MG/100 ML BAG IV SCH (11:15)
[2020-11-14] MEDS: IVERMECTIN PO SCH (11:16)
[2020-11-14] MEDS ORDERED: NS 1/2 1000 ML IV 1,000 ML IV ONE ×2 (15:08→20:05)
[2020-11-14] MEDS: MELATONIN PO SCH (21:36)
[2020-11-14] MEDS: VISTARIL PO PRN (22:34)
[2020-11-15] MEDS: ASCORBIC ACID INJ MULTI-DOSE VIAL 1,500 MG in NS 100 ML IV 100 ML IV SCH ×4 (02:20→21:00)
[2020-11-15] MEDS: SOLU-Medrol 125 MG VIAL IVP SCH ×4 (02:20→21:00)
[2020-11-15] MEDS: NS 1/2 1000 ML IV 1,000 ML IV SCH ×2 (03:39→17:43)
[2020-11-15] MEDS: CYTOTEC PO SCH ×3 (05:16→22:01)
[2020-11-15 05:52] LABS: BASOPHILS % (AUTO) 0.2 % (0.2-1.0); HEMATOCRIT 39.2 % (36.0-47.0); HEMOGLOBIN 13.8 g/dL (12.0-16.0); LYMPHOCYTES # (AUTO) 0.1 X10^3/uL (1.3-2.9); LYMPHOCYTES % (AUTO) 1.9 % (21.0-51.0); MEAN CORPUSCULAR HEMOGLOBIN 34.4 pg (27.0-34.0); MEAN CORPUSCULAR HGB CONC 35.1 g/dL (33.0-35.0); MEAN PLATELET VOLUME 9.3 fL (7.4-11.0); MONOCYTES # (AUTO) 0.2 x10^3/uL (0.3-0.8); MONOCYTES % (AUTO) 2.1 % (0.0-13.0); NEUTROPHILS # (AUTO) 7.3 x10^3/uL (2.2-4.8); NEUTROPHILS % (AUTO) 95.8 % (42.0-75.0); PLATELET COUNT 75 X10^3/uL (150.0-450.0); RED CELL DISTRIBUTION WIDTH 12.1 % (11.6-16.5); WHITE BLOOD COUNT 7.7 X10^3/uL (3.6-10.0)
[2020-11-15 06:05] LABS: ALANINE AMINOTRANSFERASE 48 Units/L (12-78); ALBUMIN 1.8 g/dL (3.4-5.0); ALKALINE PHOSPHATASE 151 Units/L (46-116); ASPARTATE AMINO TRANSFERASE 53 Units/L (15-37); BLOOD UREA NITROGEN 19 mg/dL (7-18); CALCIUM 7.5 mg/dL (8.5-10.1); CARBON DIOXIDE 27.7 mmol/L (21-32); CHLORIDE 105 mmol/L (98-107); COR CA(FOR HYPOALB) 9.3 mg/dL (8.5-10.1); COR NA(FOR HYPERGLY) 144 mmol/L (136-145); CREATININE 0.79 mg/dL (0.55-1.02); SODIUM 140 mmol/L (136-145); TOTAL PROTEIN 5.6 g/dL (6.4-8.2); eGFR NON BLACK RACES > 60 (>60)
[2020-11-15 06:45] LABS: PLATELET MORPHOLOGY COMMENT NORMAL (NORMAL)
--- NOTE | 2020-11-15 08:04 | RAD ---
HISTORYCOVID-19 pneumoniaSTUDYPortable AP chestCOMPARISONAugust 2020FINDINGSStable cardiac size with no definite change in appearance of the bilateral confluent airspace disease. No large pleural effusion or pneumothorax seen.IMPRESSIONNo change. Persistent bilateral pulmonary infiltrates consistent with pneumonia.Electronically signed by: MIGUEL MINAYA (Nov 15, 2020 08:02:07)
[2020-11-15] MEDS: BROVANA IN SCH ×2 (08:48→21:44)
[2020-11-15] MEDS: PULMICORT NEB TX 0.5 MG NEB SCH ×2 (08:48→21:44)
[2020-11-15] MEDS: MAGIC MOUTHWASH MT SCH ×4 (09:00→21:00)
[2020-11-15] MEDS: CALAN SR 180 MG PO SCH (10:00)
[2020-11-15] MEDS: VITAMIN D3 125 mcg (5,000 UNITS) PO SCH (10:00)
[2020-11-15] MEDS: VITAMIN A PO SCH (10:00)
[2020-11-15] MEDS: THIAMINE HCL INJ IVP SCH ×2 (10:00→21:00)
[2020-11-15] MEDS: ELIQUIS PO SCH ×2 (10:00→21:00)
[2020-11-15] MEDS: GLUCOPHAGE XR 24-HR PO SCH ×2 (10:00→21:00)
[2020-11-15] MEDS: DIFLUCAN 200 MG IV PREMIX* 200 MG/100 ML BAG IV SCH (10:00)
[2020-11-15] MEDS: PROTONIX INJ 40 MG VIAL IVP SCH ×2 (10:41→21:00)
[2020-11-15] MEDS: SYNTHROID 25 mcg TAB PO SCH (10:42)
[2020-11-15] MEDS: ACTOS PO SCH (10:42)
[2020-11-15] MEDS: LIPITOR TAB 80 MG PO SCH (10:42)
[2020-11-15] MEDS: PEPCID TAB 40 MG PO SCH ×2 (10:44→21:00)
[2020-11-15] MEDS: ZINC SULFATE PO SCH ×2 (11:22→21:00)
[2020-11-15] MEDS: IVERMECTIN PO SCH (14:00)
[2020-11-15] MEDS ORDERED: SOLU-Medrol 125 MG VIAL IVP SCH (15:00)
[2020-11-15] MEDS ORDERED: IVERMECTIN ONE (15:38)
[2020-11-15 16:19] LABS: ABG HCO3 27.4 mmol/L (22-26)
[2020-11-15] MEDS ORDERED: NS 1/2 1000 ML IV 1,000 ML IV ONE (17:35)
[2020-11-15] MEDS: MORPHINE SULFATE INJ 2 MG INJ IVP PRN (18:28)
[2020-11-15] MEDS: MELATONIN PO SCH (21:00)
[2020-11-16] MEDS: ASCORBIC ACID INJ MULTI-DOSE VIAL 1,500 MG in NS 100 ML IV 100 ML IV SCH ×4 (03:28→21:01)
[2020-11-16] MEDS: SOLU-Medrol 125 MG VIAL IVP SCH ×4 (03:28→20:57)
[2020-11-16 04:38] LABS: ABG ALLEN TEST POS; ABG BASE EXCESS 5.6 mmol/L (-2.0-2.0); ABG HCO3 29.8 mmol/L (22-26)
[2020-11-16 05:37] LABS: BASOPHILS % (AUTO) 0.3 % (0.2-1.0); HEMATOCRIT 41.4 % (36.0-47.0); HEMOGLOBIN 14.4 g/dL (12.0-16.0); LYMPHOCYTES # (AUTO) 0.1 X10^3/uL (1.3-2.9); LYMPHOCYTES % (AUTO) 1.5 % (21.0-51.0); MEAN CORPUSCULAR HEMOGLOBIN 34.5 pg (27.0-34.0); MEAN CORPUSCULAR HGB CONC 34.8 g/dL (33.0-35.0); MEAN CORPUSCULAR VOLUME 99.1 fL (80.0-100.0); MEAN PLATELET VOLUME 9.5 fL (7.4-11.0); MONOCYTES # (AUTO) 0.2 x10^3/uL (0.3-0.8); NEUTROPHILS # (AUTO) 9.5 x10^3/uL (2.2-4.8); NEUTROPHILS % (AUTO) 96.2 % (42.0-75.0); PLATELET COUNT 87 X10^3/uL (150.0-450.0); RED BLOOD COUNT 4.18 X10^6/uL (3.5-5.4); RED CELL DISTRIBUTION WIDTH 12.3 % (11.6-16.5); WHITE BLOOD COUNT 9.8 X10^3/uL (3.6-10.0)
[2020-11-16 05:53] LABS: ALANINE AMINOTRANSFERASE 57 Units/L (12-78); ALKALINE PHOSPHATASE 185 Units/L (46-116); ASPARTATE AMINO TRANSFERASE 57 Units/L (15-37); BLOOD UREA NITROGEN 22 mg/dL (7-18); CALCIUM 7.9 mg/dL (8.5-10.1); CARBON DIOXIDE 32.5 mmol/L (21-32); CHLORIDE 104 mmol/L (98-107); COR CA(FOR HYPOALB) 9.5 mg/dL (8.5-10.1); COR NA(FOR HYPERGLY) 146 mmol/L (136-145); CREATININE 0.93 mg/dL (0.55-1.02); SODIUM 141 mmol/L (136-145); TOTAL PROTEIN 6.1 g/dL (6.4-8.2); eGFR NON BLACK RACES > 60 (>60)
[2020-11-16 06:40] LABS: PLATELET MORPHOLOGY COMMENT ABNORMAL (NORMAL)
[2020-11-16] MEDS: PULMICORT NEB TX 0.5 MG NEB SCH ×2 (07:45→19:32)
[2020-11-16] MEDS: BROVANA IN SCH ×2 (07:45→19:32)
--- NOTE | 2020-11-16 08:16 | RAD ---
HISTORYCOVID PNEUMONIASTUDYCHEST, 1 [id number]/01/2021FINDINGSThe lungs are not as well inflated as on the prior study.Bilateral opacity in the lungs has a patchy distribution on the CTA chest 11/06/2020 compatible with bronchopneumonia.There is probably not a significant change when accounting for the lesser degree of inflation.No pleural effusion or pneumothorax.Heart size is normal.Bones are unremarkable.IMPRESSION1. Decreased inflation2. Unchanged pneumoniaElectronically signed by: Valentín Pollard (Nov 16, 2020 08:14:28)
[2020-11-16] MEDS ORDERED: KLONOPIN TAB 0.5 MG PO PRN (08:40)
[2020-11-16] MEDS: MORPHINE SULFATE INJ 2 MG INJ IVP PRN ×2 (10:19→13:29)
[2020-11-16] MEDS: SYNTHROID 25 mcg TAB PO SCH (10:22)
[2020-11-16] MEDS: PERIACTIN TAB 4 MG PO PRN (10:22)
[2020-11-16] MEDS: ELIQUIS PO SCH ×2 (10:22→20:55)
[2020-11-16] MEDS: GLUCOPHAGE XR 24-HR PO SCH ×2 (10:23→20:53)
[2020-11-16] MEDS: LIPITOR TAB 80 MG PO SCH (10:24)
[2020-11-16] MEDS: CALAN SR 180 MG PO SCH (10:24)
[2020-11-16] MEDS: ZINC SULFATE PO SCH ×2 (10:24→20:53)
[2020-11-16] MEDS: PEPCID TAB 40 MG PO SCH ×2 (10:25→21:04)
[2020-11-16] MEDS: ACTOS PO SCH (10:25)
[2020-11-16] MEDS: VITAMIN D3 125 mcg (5,000 UNITS) PO SCH (10:30)
[2020-11-16] MEDS: MAGIC MOUTHWASH MT SCH ×4 (10:30→21:02)
[2020-11-16] MEDS: VITAMIN A PO SCH (10:30)
[2020-11-16] MEDS: PROTONIX INJ 40 MG VIAL IVP SCH ×2 (10:34→21:01)
[2020-11-16] MEDS ORDERED: NS 1/2 1000 ML IV 1,000 ML IV ONE (12:09)
[2020-11-16] MEDS: NS 1/2 1000 ML IV 1,000 ML IV SCH ×3 (12:32→21:01)
[2020-11-16] MEDS: DIFLUCAN 200 MG IV PREMIX* 200 MG/100 ML BAG IV SCH (12:34)
[2020-11-16] MEDS: THIAMINE HCL INJ IVP SCH ×2 (12:35→21:04)
[2020-11-16] MEDS: HumuLIN R SUBCUT PRN ×3 (12:51→21:03)
[2020-11-16] MEDS: CYTOTEC PO SCH ×3 (16:05→21:07)
[2020-11-16] MEDS: VALIUM INJ IVP PRN (16:12)
[2020-11-16] MEDS: IVERMECTIN PO SCH (17:08)
[2020-11-16] MEDS: MELATONIN PO SCH (21:02)
[2020-11-16] MEDS: SNACK - Diabetic Appropriate PO SCH (21:06)
[2020-11-17] MEDS ORDERED: NS 1/2 1000 ML IV 1,000 ML IV ONE ×2 (02:57→17:27)
[2020-11-17] MEDS: SOLU-Medrol 125 MG VIAL IVP SCH ×3 (03:00→21:00)
[2020-11-17] MEDS: ASCORBIC ACID INJ MULTI-DOSE VIAL 1,500 MG in NS 100 ML IV 100 ML IV SCH ×4 (03:00→21:00)
[2020-11-17] MEDS: NS 1/2 1000 ML IV 1,000 ML IV SCH ×3 (04:00→22:51)
[2020-11-17 05:27] LABS: ABG BASE EXCESS 9.1 mmol/L (-2.0-2.0)
[2020-11-17 05:28] LABS: ABG ALLEN TEST POS; ABG HCO3 33.5 mmol/L (22-26)
[2020-11-17] MEDS: HumuLIN R SUBCUT PRN ×2 (06:00→17:40)
[2020-11-17 06:28] LABS: BASOPHILS % (AUTO) 0.3 % (0.2-1.0); HEMATOCRIT 37.5 % (36.0-47.0); HEMOGLOBIN 13.4 g/dL (12.0-16.0); LYMPHOCYTES # (AUTO) 0.1 X10^3/uL (1.3-2.9); LYMPHOCYTES % (AUTO) 1.5 % (21.0-51.0); MEAN CORPUSCULAR HEMOGLOBIN 34.5 pg (27.0-34.0); MEAN CORPUSCULAR HGB CONC 35.6 g/dL (33.0-35.0); MEAN CORPUSCULAR VOLUME 96.9 fL (80.0-100.0); MEAN PLATELET VOLUME 10.3 fL (7.4-11.0); MONOCYTES # (AUTO) 0.2 x10^3/uL (0.3-0.8); MONOCYTES % (AUTO) 2.1 % (0.0-13.0); NEUTROPHILS # (AUTO) 7.6 x10^3/uL (2.2-4.8); NEUTROPHILS % (AUTO) 96.1 % (42.0-75.0); PLATELET COUNT 74 X10^3/uL (150.0-450.0); RED BLOOD COUNT 3.87 X10^6/uL (3.5-5.4); RED CELL DISTRIBUTION WIDTH 12.2 % (11.6-16.5); WHITE BLOOD COUNT 7.9 X10^3/uL (3.6-10.0)
[2020-11-17] MEDS: CYTOTEC PO SCH ×3 (06:33→22:00)
[2020-11-17 07:31] LABS: ALANINE AMINOTRANSFERASE 54 Units/L (12-78); ALBUMIN 1.9 g/dL (3.4-5.0); ALKALINE PHOSPHATASE 189 Units/L (46-116); ASPARTATE AMINO TRANSFERASE 50 Units/L (15-37); BLOOD UREA NITROGEN 20 mg/dL (7-18); CALCIUM 7.8 mg/dL (8.5-10.1); CARBON DIOXIDE 34.8 mmol/L (21-32); CHLORIDE 104 mmol/L (98-107); COR CA(FOR HYPOALB) 9.5 mg/dL (8.5-10.1); COR NA(FOR HYPERGLY) 144 mmol/L (136-145); CREATININE 0.79 mg/dL (0.55-1.02); SODIUM 141 mmol/L (136-145); TOTAL PROTEIN 5.7 g/dL (6.4-8.2); eGFR NON BLACK RACES > 60 (>60)
[2020-11-17] MEDS: DIFLUCAN 200 MG IV PREMIX* 200 MG/100 ML BAG IV SCH (08:15)
--- NOTE | 2020-11-17 08:20 | RAD ---
HISTORYCOVID-19 pneumoniaSTUDYPortable AP [id number]/02/2021FINDINGSThere is no significant change in appearance of heart size or contour. Similar extent and distribution of bilateral diffuse airspace infiltrates. No additional consolidation, pneumothorax or large pleural effusion is seen.IMPRESSIONNo significant change in appearance of bilateral pneumonia.Electronically signed by: MIGUEL MINAYA (Nov 17, 2020 08:18:06)
[2020-11-17 08:49] LABS: PLATELET MORPHOLOGY COMMENT NORMAL (NORMAL)
[2020-11-17] MEDS: ELIQUIS PO SCH ×2 (09:00→21:00)
[2020-11-17] MEDS: BROVANA IN SCH ×2 (09:00→20:55)
[2020-11-17] MEDS: PULMICORT NEB TX 0.5 MG NEB SCH ×2 (09:00→20:55)
[2020-11-17] MEDS: ZINC SULFATE PO SCH ×2 (09:15→21:00)
[2020-11-17] MEDS: ACTOS PO SCH (09:15)
[2020-11-17] MEDS: VITAMIN A PO SCH (09:15)
[2020-11-17] MEDS: VITAMIN D3 125 mcg (5,000 UNITS) PO SCH (09:15)
[2020-11-17] MEDS: GLUCOPHAGE XR 24-HR PO SCH ×2 (09:15→21:00)
[2020-11-17] MEDS: PEPCID TAB 40 MG PO SCH ×2 (09:15→21:00)
[2020-11-17] MEDS: THIAMINE HCL INJ IVP SCH ×2 (09:15→21:00)
[2020-11-17] MEDS: PROTONIX INJ 40 MG VIAL IVP SCH ×2 (09:15→22:00)
[2020-11-17] MEDS: SYNTHROID 25 mcg TAB PO SCH (09:15)
[2020-11-17] MEDS: LIPITOR TAB 80 MG PO SCH (09:15)
[2020-11-17] MEDS: CALAN SR 180 MG PO SCH (10:15)
[2020-11-17 12:04] LABS: BILIRUBIN,URINE NEGATIVE (NEGATIVE); BLOOD/HEMOGLOBIN,URINE NEGATIVE (NEGATIVE); GLUCOSE, URINE NEGATIVE (NEGATIVE); KETONES,URINE NEGATIVE (NEGATIVE); LEUKOCYTE ESTERASE ,URINE NEGATIVE (NEGATIVE); NITRITES,URINE NEGATIVE (NEGATIVE); PH,URINE 6.5 (5.0 - 8.0); PROTEIN,URINE 1+ (NEGATIVE); UROBILINOGEN,URINE 1+ (NORMAL)
[2020-11-17 12:17] LABS: APPEARANCE,URINE CLEAR (CLEAR); COLOR,URINE YELLOW (YELLOW)
[2020-11-17 12:19] LABS: BACTERIA,URINE TRACE /HPF (NEGATIVE); MUCUS,URINE FEW /HPF (NEGATIVE); SQUAMOUS EPITHELIAL CELL,UR FEW /HPF (NEGATIVE); TRANSITIONAL EPI CELLS,URINE FEW /HPF (NEGATIVE)
[2020-11-17] MEDS: MAGIC MOUTHWASH MT SCH ×4 (13:00→22:51)
[2020-11-17] MEDS ORDERED: KAYEXALATE SUSP PO NR (15:00)
[2020-11-17] MEDS: SNACK - Diabetic Appropriate PO SCH (20:00)
[2020-11-17] MEDS: VALIUM INJ IVP PRN (20:20)
[2020-11-17] MEDS: MELATONIN PO SCH (21:00)
[2020-11-18] MEDS: HumuLIN R SUBCUT PRN ×4 (01:26→23:06)
[2020-11-18] MEDS: SOLU-Medrol 125 MG VIAL IVP SCH ×4 (03:00→21:30)
[2020-11-18] MEDS: ASCORBIC ACID INJ MULTI-DOSE VIAL 1,500 MG in NS 100 ML IV 100 ML IV SCH ×4 (03:00→21:30)
[2020-11-18 04:58] LABS: BASOPHILS # (AUTO) 0.1 X10^3/uL (0.0-0.1); BASOPHILS % (AUTO) 0.5 % (0.2-1.0); HEMATOCRIT 39.6 % (36.0-47.0); HEMOGLOBIN 13.7 g/dL (12.0-16.0); LYMPHOCYTES # (AUTO) 0.2 X10^3/uL (1.3-2.9); LYMPHOCYTES % (AUTO) 1.4 % (21.0-51.0); MEAN CORPUSCULAR HEMOGLOBIN 33.9 pg (27.0-34.0); MEAN CORPUSCULAR HGB CONC 34.6 g/dL (33.0-35.0); MONOCYTES # (AUTO) 0.1 x10^3/uL (0.3-0.8); MONOCYTES % (AUTO) 1.3 % (0.0-13.0); NEUTROPHILS # (AUTO) 10.4 x10^3/uL (2.2-4.8); NEUTROPHILS % (AUTO) 96.8 % (42.0-75.0); PLATELET COUNT 73 X10^3/uL (150.0-450.0); RED BLOOD COUNT 4.04 X10^6/uL (3.5-5.4); RED CELL DISTRIBUTION WIDTH 12.3 % (11.6-16.5); WHITE BLOOD COUNT 10.7 X10^3/uL (3.6-10.0)
[2020-11-18 05:15] LABS: ALANINE AMINOTRANSFERASE 55 Units/L (12-78); ALBUMIN 1.8 g/dL (3.4-5.0); ALKALINE PHOSPHATASE 166 Units/L (46-116); ASPARTATE AMINO TRANSFERASE 48 Units/L (15-37); BLOOD UREA NITROGEN 22 mg/dL (7-18); CALCIUM 7.8 mg/dL (8.5-10.1); CARBON DIOXIDE 30.6 mmol/L (21-32); CHLORIDE 103 mmol/L (98-107); COR CA(FOR HYPOALB) 9.6 mg/dL (8.5-10.1); COR NA(FOR HYPERGLY) 144 mmol/L (136-145); CREATININE 0.79 mg/dL (0.55-1.02); SODIUM 140 mmol/L (136-145); TOTAL PROTEIN 5.6 g/dL (6.4-8.2); eGFR NON BLACK RACES > 60 (>60)
[2020-11-18 05:34] LABS: PLATELET MORPHOLOGY COMMENT NORMAL (NORMAL)
[2020-11-18] MEDS: CYTOTEC PO SCH ×3 (05:42→21:30)
[2020-11-18 05:57] LABS: ABG BASE EXCESS 8.9 mmol/L (-2.0-2.0)
[2020-11-18 05:58] LABS: ABG ALLEN TEST POS; ABG HCO3 33.5 mmol/L (22-26)
[2020-11-18] MEDS ORDERED: NS 1/2 1000 ML IV 1,000 ML IV ONE (06:32)
--- NOTE | 2020-11-18 07:15 | RAD ---
HISTORYCOVID-19 pneumoniaSTUDYPortable AP [id number]/03/2021FINDINGSThere is no significant change in appearance of heart size or configuration. Similar distribution bilateral airspace disease with no additional consolidation, complicating pneumothorax or large pleural effusion.IMPRESSIONNo change in appearance of bilateral pneumonia.Electronically signed by: MIGUEL MINAYA (Nov 18, 2020 07:13:09)
[2020-11-18] MEDS: VALIUM INJ IVP PRN ×2 (07:25→16:21)
[2020-11-18] MEDS: DIFLUCAN 200 MG IV PREMIX* 200 MG/100 ML BAG IV SCH (09:00)
[2020-11-18] MEDS: LIPITOR TAB 80 MG PO SCH (09:00)
[2020-11-18] MEDS: THIAMINE HCL INJ IVP SCH ×2 (09:00→21:30)
[2020-11-18] MEDS: SYNTHROID 25 mcg TAB PO SCH (09:00)
[2020-11-18] MEDS: ELIQUIS PO SCH ×2 (09:00→21:00)
[2020-11-18] MEDS: VITAMIN A PO SCH (09:00)
[2020-11-18] MEDS: CALAN SR 180 MG PO SCH (09:00)
[2020-11-18] MEDS: ACTOS PO SCH (09:00)
[2020-11-18] MEDS: VITAMIN D3 125 mcg (5,000 UNITS) PO SCH (09:00)
[2020-11-18] MEDS: PEPCID TAB 40 MG PO SCH ×2 (09:00→21:30)
[2020-11-18] MEDS: GLUCOPHAGE XR 24-HR PO SCH ×2 (09:00→21:30)
[2020-11-18] MEDS: ZINC SULFATE PO SCH ×2 (09:00→21:30)
[2020-11-18] MEDS: COZAAR PO SCH (09:00)
[2020-11-18] MEDS: PROTONIX INJ 40 MG VIAL IVP SCH ×2 (09:00→21:30)
[2020-11-18] MEDS: PULMICORT NEB TX 0.5 MG NEB SCH ×2 (09:28→20:58)
[2020-11-18] MEDS: BROVANA IN SCH ×2 (09:28→20:58)
[2020-11-18] MEDS: MAGIC MOUTHWASH MT SCH ×4 (11:12→21:30)
[2020-11-18] MEDS: NS 1/2 1000 ML IV 1,000 ML IV SCH ×2 (11:16→23:09)
[2020-11-18] MEDS ORDERED: VALIUM INJ IM ONE (12:47)
--- NOTE | 2020-11-18 16:55 | PCM.PROG ---
Progress Note Progress Note for Day of Date of Exam: 11/18/20 Subjective Subjective: Patient seen at bedside, patient has remained on the BiPAP. She was transitioned to FNC in the AM but sats dropped to the 60s so was placed back on BiPAP. Her sats remain in the low 90s right now. She appears to be very anxious. also present at bedside. She was able to eat this morning and took her meds. Labs: WBC 10.7 Hgb 13 Plt 73 BUN/Cr: 22/0.79 K: 4.4 Na: 140 Glucpse 250 AB.48/45/63/33 CXR: bilateral pna present, no change noted Plan: Wean BiPAP as tolerated to keep sats>92%. Continue IV Solumedrol, Eliquis and Diflucan. Continue nebs, pulmicort and IS. Continue vitamin support. Continue gentle hydration. Patient and updated on patient's critical condition. Discussed if BiPAP not able to keep saturations up then the next step would be mechanical ventilation. All questions and concerns addressed. Advised patient to rest. Continue Valium prn for anxiety. Monitor AM labs/imaging. Patient remains in a critical condition. Time spent for clinical assessment, reviewing labs/imaging, physical exam, decision making and documentation greater than 45 mins. Past Medical Family Social History Past Med/Fam/Surg Hx: No changes since H&P Allergies: Allergies No Known Drug Allergies Allergy (Verified 11/06/20 20:00) Review of Systems ROS: No change since H&P Vital Signs and I&O's Vital Signs: Temperature 97.7 F Pulse Rate [Right Brachial] 70 Pulse Rate [Apical] 76 Pulse Rate 83 Respiratory Rate 24 Blood Pressure [Right Arm] 172/80 Blood Pressure [Left Arm] 143/74 Blood Pressure 128/62 O2 Sat by Pulse Oximetry 93 Intake and Output: Intake & Output 11/15/20 11/16/20 11/17/20 11/18/20 23:59 23:59 23:59 23:59 Intake Total 941 / 941 2079 3712 / 3712 2084 Output Total 700 / 700 1900 / 1900 Balance 941 / 941 2079 3012 / 3012 185 / 185 Physical Exam Oriented: Normal Eyes: Normal Ear: Normal Nose: Normal Throat: Normal Respiratory: Generalized and Diminished Cardiovascular: Normal Auscultation: Bowel Sounds: Normal Tenderness: Normal Skin: Normal Musculoskeletal: Normal Psychiatric: Anxiety Mood Description: Anxious Affect: Anxious Speech Pattern: Clear and Appropriate Laboratory and Diagnostics Result Diagrams: 11/18/20 04:24 11/18/20 04:24 Labs: Laboratory WBC 10.7 X10^3/uL (3.6-10.0) H 11/18/20 04:24 RBC 4.04 X10^6/uL (3.5-5.4) 11/18/20 04:24 Hgb 13.7 g/dL (12.0-16.0) 11/18/20 04:24 Hct 39.6 % (36.0-47.0) 11/18/20 04:24 MCV 98.0 fL (80.0-100.0) 11/18/20 04:24 MCH 33.9 pg (27.0-34.0) 11/18/20 04:24 MCHC 34.6 g/dL (33.0-35.0) 11/18/20 04:24 RDW 12.3 % (11.6-16.5) 11/18/20 04:24 Plt Count 73 X10^3/uL (150.0-450.0) L 11/18/20 04:24 Plt Count Comment Decreased (ADEQUATE) A 11/18/20 04:24 MPV 10.0 fL (7.4-11.0) 11/18/20 04:24 Neut % (Auto) 96.8 % (42.0-75.0) H 11/18/20 04:24 Lymph % (Auto) 1.4 % (21.0-51.0) L 11/18/20 04:24 [place] % (Auto) 1.3 % (0.0-13.0) 11/18/20 04:24 Eos % (Auto) 0.0 % (0.9-2.9) L 11/18/20 04:24 Baso % (Auto) 0.5 % (0.2-1.0) 11/18/20 04:24 Neut # (Auto) 10.4 x10^3/uL (2.2-4.8) H 11/18/20 04:24 Lymph # (Auto) 0.2 X10^3/uL (1.3-2.9) L 11/18/20 04:24 [place]row # (Auto) 0.1 x10^3/uL (0.3-0.8) L 11/18/20 04:24 Eos # (Auto) 0.0 x10^3/uL (0.0-0.2) 11/18/20 04:24 Baso # (Auto) 0.1 X10^3/uL (0.0-0.1) 11/18/20 04:24 Absolute Nucleated RBC 0.0 /100WBC 11/18/20 04:24 Total Counted 100 11/18/20 04:24 Neutrophils % (Manual) 97 % (39-76) H 11/18/20 04:24 Band Neutrophils % 5 % (0-10) 11/14/20 04:25 Lymphocytes % (Manual) 2 % (13-43) L 11/18/20 04:24 Monocytes % (Manual) 1 % (4-9) L 11/18/20 04:24 Plt Morphology Comment Normal (NORMAL) 11/18/20 04:24 RBC Morphology Normal (NORMAL) 11/18/20 04:24 D-Dimer 0.96 ug/ml (0.0-0.57) H* 11/06/20 20:41 Sample Site Rrad 11/18/20 05:55 ABG pH 7.480 (7.35-7.45) H 11/18/20 05:55 ABG pCO2 45.0 mmHg (35.0-45.0) 11/18/20 05:55 ABG pO2 63.0 mmHg (80.0-100.0) L 11/18/20 05:55 ABG HCO3 33.5 mmol/L (22-26) H* 11/18/20 05:55 ABG O2 Saturation 93.0 % (90-100) 11/18/20 05:55 ABG Base Excess 8.9 mmol/L (-2.0-2.0) H 11/18/20 05:55 Michael Test Pos 11/18/20 05:55 A-a Gradient 594.0 mmHg 11/18/20 05:55 FiO2 100.0 11/18/20 05:55 Blood Gas Comments [facility] well 11/18/20 05:55 Sodium 140 mmol/L (136-145) 11/18/20 04:24 Corrected Sodium 144 mmol/L (136-145) 11/18/20 04:24 Potassium 4.4 mmol/L (3.5-5.1) 11/18/20 04:24 Chloride 103 mmol/L (98-107) 11/18/20 04:24 Carbon Dioxide 30.6 mmol/L (21-32) 11/18/20 04:24 BUN 22 mg/dL (7-18) H 11/18/20 04:24 Creatinine 0.79 mg/dL (0.55-1.02) 11/18/20 04:24 Est GFR (MDRD) Af Amer > 60 (>60) 11/18/20 04:24 Est GFR (MDRD) Non-Af > 60 (>60) 11/18/20 04:24 Glucose 275 mg/dL (65-99) H 11/18/20 04:24 POC Glucose (mg/dL) 260 mg/dL (65-99) H 11/18/20 12:13 Calcium 7.8 mg/dL (8.5-10.1) L 11/18/20 04:24 Corrected Calcium 9.6 mg/dL (8.5-10.1) 11/18/20 04:24 Magnesium 2.3 mg/dL (1.7-2.9) 11/12/20 04:27 Ferritin 1723 ng/mL (8-252) H 11/06/20 20:41 Total Bilirubin 1.10 mg/dL (0.2-1.0) H 11/18/20 04:24 AST 48 Units/L (15-37) H 11/18/20 04:24 ALT 55 Units/L (12-78) 11/18/20 04:24 Alkaline Phosphatase 166 Units/L (46-116) H 11/18/20 04:24 C-Reactive Protein 236.70 mg/L (0-3.0) H 11/06/20 20:41 B-Natriuretic Peptide 32.1 pg/mL (0-79) 11/06/20 20:41 Total Protein 5.6 g/dL (6.4-8.2) L 11/18/20 04:24 Albumin 1.8 g/dL (3.4-5.0) L 11/18/20 04:24 Globulin 3.8 g/dL (2.5-4.5) 11/18/20 04:24 Albumin/Globulin Ratio 0.5 Ratio (1.1-2.1) L 11/18/20 04:24 Specimen Type Catherized urine 11/17/20 11:54 Urine Color Yellow (YELLOW) 11/17/20 11:54 Urine Appearance Clear (CLEAR) 11/17/20 11:54 Urine pH 6.5 (5.0 - 8.0) 11/17/20 11:54 Ur Specific [place] 1.010 (1.000-1.030) 11/17/20 11:54 Urine Protein 1+ (NEGATIVE) 11/17/20 11:54 Urine Glucose (UA) Negative (NEGATIVE) 11/17/20 11:54 Urine Ketones Negative (NEGATIVE) 11/17/20 11:54 Urine Occult Blood Negative (NEGATIVE) 11/17/20 11:54 Urine Nitrite Negative (NEGATIVE) 11/17/20 11:54 Urine Bilirubin Negative (NEGATIVE) 11/17/20 11:54 Urine Urobilinogen 1+ (NORMAL) 11/17/20 11:54 Ur Leukocyte Esterase Negative (NEGATIVE) 11/17/20 11:54 Urine RBC 3-5 /HPF (0-3) A 11/17/20 11:54 Urine WBC 3-5 /HPF (0-5) 11/17/20 11:54 Ur Squamous Epith Cells Few /HPF (NEGATIVE) 11/17/20 11:54 Ur Transition Epith Cell Few /HPF (NEGATIVE) 11/17/20 11:54 Urine Bacteria Trace /HPF (NEGATIVE) 11/17/20 11:54 Urine Mucus Few /HPF (NEGATIVE) 11/17/20 11:54 Ur Culture Indicated? No/not indicated 11/17/20 11:54 SARS-CoV-2 (PCR) Positive (NEGATIVE) A 11/07/20 07:23 Influenza Type A (PCR) Negative (NEGATIVE) 11/07/20 07:23 Influenza Type B (PCR) Negative (NEGATIVE) 11/07/20 07:23 RSV (PCR) Negative (NEGATIVE) 11/07/20 07:23 Plan (1) Pneumonia due to COVID-19 virus: Status: Acute (2) Acute respiratory failure with hypoxia: Status: Acute (3) Anxiety: Status: Acute
[2020-11-18] MEDS: SNACK - Diabetic Appropriate PO SCH (20:00)
[2020-11-18] MEDS: MELATONIN PO SCH (21:30)
[2020-11-18] MEDS: VISTARIL PO PRN (22:12)
[2020-11-19] MEDS ORDERED: NS 1/2 1000 ML IV 1,000 ML IV ONE ×2 (00:20→17:07)
[2020-11-19] MEDS: ASCORBIC ACID INJ MULTI-DOSE VIAL 1,500 MG in NS 100 ML IV 100 ML IV SCH ×4 (03:37→21:41)
[2020-11-19] MEDS: SOLU-Medrol 125 MG VIAL IVP SCH ×4 (03:38→21:39)
[2020-11-19 05:11] LABS: BASOPHILS % (AUTO) 0.1 % (0.2-1.0); HEMATOCRIT 37.7 % (36.0-47.0); HEMOGLOBIN 13.1 g/dL (12.0-16.0); LYMPHOCYTES # (AUTO) 0.1 X10^3/uL (1.3-2.9); LYMPHOCYTES % (AUTO) 1.5 % (21.0-51.0); MEAN CORPUSCULAR HEMOGLOBIN 33.8 pg (27.0-34.0); MEAN CORPUSCULAR HGB CONC 34.9 g/dL (33.0-35.0); MEAN CORPUSCULAR VOLUME 97.1 fL (80.0-100.0); MEAN PLATELET VOLUME 9.5 fL (7.4-11.0); MONOCYTES # (AUTO) 0.2 x10^3/uL (0.3-0.8); MONOCYTES % (AUTO) 1.9 % (0.0-13.0); NEUTROPHILS # (AUTO) 9.1 x10^3/uL (2.2-4.8); NEUTROPHILS % (AUTO) 96.5 % (42.0-75.0); PLATELET COUNT 64 X10^3/uL (150.0-450.0); RED BLOOD COUNT 3.88 X10^6/uL (3.5-5.4); RED CELL DISTRIBUTION WIDTH 12.3 % (11.6-16.5); WHITE BLOOD COUNT 9.5 X10^3/uL (3.6-10.0)
[2020-11-19 05:21] LABS: BLOOD UREA NITROGEN 18 mg/dL (7-18); CALCIUM 7.6 mg/dL (8.5-10.1); CHLORIDE 101 mmol/L (98-107); COR NA(FOR HYPERGLY) 142 mmol/L (136-145); CREATININE 0.69 mg/dL (0.55-1.02); SODIUM 138 mmol/L (136-145); eGFR NON BLACK RACES > 60 (>60)
[2020-11-19] MEDS: CYTOTEC PO SCH ×3 (05:48→21:38)
[2020-11-19] MEDS: HumuLIN R SUBCUT PRN ×3 (05:50→21:37)
[2020-11-19 06:17] LABS: PLATELET MORPHOLOGY COMMENT NORMAL (NORMAL)
[2020-11-19] MEDS: BROVANA IN SCH ×2 (09:04→21:05)
[2020-11-19] MEDS: PULMICORT NEB TX 0.5 MG NEB SCH ×2 (09:04→21:05)
[2020-11-19] MEDS: ACTOS PO SCH (09:16)
[2020-11-19] MEDS: CALAN SR 180 MG PO SCH (09:18)
[2020-11-19] MEDS: GLUCOPHAGE XR 24-HR PO SCH ×2 (09:19→21:41)
[2020-11-19] MEDS: COZAAR PO SCH (09:19)
[2020-11-19] MEDS: LIPITOR TAB 80 MG PO SCH (09:20)
[2020-11-19] MEDS: PEPCID TAB 40 MG PO SCH ×2 (09:20→21:40)
[2020-11-19] MEDS: SYNTHROID 25 mcg TAB PO SCH (09:20)
[2020-11-19] MEDS: VITAMIN A PO SCH (09:21)
[2020-11-19] MEDS: VITAMIN D3 125 mcg (5,000 UNITS) PO SCH (09:21)
[2020-11-19] MEDS: VISTARIL PO PRN ×2 (09:21→21:43)
[2020-11-19] MEDS: ZINC SULFATE PO SCH ×2 (09:21→21:39)
[2020-11-19] MEDS: THIAMINE HCL INJ IVP SCH ×2 (09:22→21:35)
[2020-11-19] MEDS: MAGIC MOUTHWASH MT SCH ×4 (09:22→21:40)
[2020-11-19] MEDS: PROTONIX INJ 40 MG VIAL IVP SCH ×2 (09:22→21:39)
[2020-11-19] MEDS: DIFLUCAN 200 MG IV PREMIX* 200 MG/100 ML BAG IV SCH (11:27)
[2020-11-19 11:43] LABS: ABG BASE EXCESS 10.6 mmol/L (-2.0-2.0); ABG HCO3 35.1 mmol/L (22-26)
--- NOTE | 2020-11-19 12:35 | PCM.PROG ---
Progress Note Progress Note for Day of Date of Exam: 11/19/20 Subjective Subjective: Patient seen at bedside, patient has remained on the BiPAP overnight at FiO2 100%. She was transitioned to HHFNC in the AM but sats dropped to the 60s so was placed back on BiPAP. Her sats remain in the low 90s right now. She states she is doing ok, the current bipap mask fits her better. also present at bedside. Labs: WBC 9.5 Hgb 13.1 Plt 64 BUN/Cr: 18/0.69 K: 4.2 Na: 138 Glucose 253 AB.48/45/63/33 CRP: 3.70 CXR: bilateral pna present, no change noted Plan: Wean BiPAP as tolerated to keep sats>92%. Repeat ABG. Continue IV Solumedrol, and Diflucan. Patient was on Eliquis 10 mg BID x 7 days, completed last night. Will be starting Eliquis 5mg BID today but due to low plts, will hold off till tomorrow. Continue SCDs. Continue nebs, pulmicort and IS. Continue vitamin support. Continue gentle hydration. Patient and updated on patient's critical condition. Discussed if BiPAP not able to keep saturations up then the next step would be mechanical ventilation. All questions and concerns addressed. Advised patient to rest. Continue Valium prn for anxiety. Monitor AM labs/imaging. Patient remains in a critical condition. Time spent for clinical assessment, reviewing labs/imaging, physical exam, decision making and documentation greater than 45 mins. Past Medical Family Social History Past Med/Fam/Surg Hx: No changes since H&P Allergies: Allergies No Known Drug Allergies Allergy (Verified 11/06/20 20:00) Review of Systems ROS: No change since H&P Vital Signs and I&O's Vital Signs: Temperature 99.7 F Pulse Rate [Right Brachial] 70 Pulse Rate [Apical] 76 Pulse Rate 83 Respiratory Rate 26 Blood Pressure [Right Arm] 172/80 Blood Pressure [Left Arm] 143/74 Blood Pressure 134/70 O2 Sat by Pulse Oximetry 94 Intake and Output: Intake & Output 11/16/20 11/17/20 11/18/20 11/19/20 23:59 23:59 23:59 23:59 Intake Total 2079 / 2079 3712 / 3712 3562 / 3562 567 / 567 Output Total 700 / 700 3550 / 3550 650 / 650 Balance 2079 / 2079 3012 / 3012 - / Physical Exam Oriented: Normal Eyes: Normal Ear: Normal Nose: Normal Throat: Normal Respiratory: Generalized and Diminished Cardiovascular: Normal Auscultation: Bowel Sounds: Normal Tenderness: Normal Skin: Normal Musculoskeletal: Normal Psychiatric: Anxiety Mood Description: Anxious Affect: Anxious Speech Pattern: Clear Laboratory and Diagnostics Result Diagrams: 11/19/20 04:35 11/19/20 04:35 Labs: Laboratory WBC 9.5 X10^3/uL (3.6-10.0) 11/19/20 04:35 RBC 3.88 X10^6/uL (3.5-5.4) 11/19/20 04:35 Hgb 13.1 g/dL (12.0-16.0) 11/19/20 04:35 Hct 37.7 % (36.0-47.0) 11/19/20 04:35 MCV 97.1 fL (80.0-100.0) 11/19/20 04:35 MCH 33.8 pg (27.0-34.0) 11/19/20 04:35 MCHC 34.9 g/dL (33.0-35.0) 11/19/20 04:35 RDW 12.3 % (11.6-16.5) 11/19/20 04:35 Plt Count 64 X10^3/uL (150.0-450.0) L 11/19/20 04:35 Plt Count Comment Decreased (ADEQUATE) A 11/19/20 04:35 MPV 9.5 fL (7.4-11.0) 11/19/20 04:35 Neut % (Auto) 96.5 % (42.0-75.0) H 11/19/20 04:35 Lymph % (Auto) 1.5 % (21.0-51.0) L 11/19/20 04:35 [place] % (Auto) 1.9 % (0.0-13.0) 11/19/20 04:35 Eos % (Auto) 0.0 % (0.9-2.9) L 11/19/20 04:35 Baso % (Auto) 0.1 % (0.2-1.0) L 11/19/20 04:35 Neut # (Auto) 9.1 x10^3/uL (2.2-4.8) H 11/19/20 04:35 Lymph # (Auto) 0.1 X10^3/uL (1.3-2.9) L 11/19/20 04:35 [place] # (Auto) 0.2 x10^3/uL (0.3-0.8) L 11/19/20 04:35 Eos # (Auto) 0.0 x10^3/uL (0.0-0.2) 11/19/20 04:35 Baso # (Auto) 0.0 X10^3/uL (0.0-0.1) 11/19/20 04:35 Absolute Nucleated RBC 0.0 /100WBC 11/19/20 04:35 Total Counted 100 11/19/20 04:35 Neutrophils % (Manual) 100 % (39-76) H 11/19/20 04:35 Band Neutrophils % 5 % (0-10) 11/14/20 04:25 Lymphocytes % (Manual) Not Reportable 11/19/20 04:35 Monocytes % (Manual) 1 % (4-9) L 11/18/20 04:24 Plt Morphology Comment Normal (NORMAL) 11/19/20 04:35 RBC Morphology Normal (NORMAL) 11/19/20 04:35 D-Dimer 0.96 ug/ml (0.0-0.57) H* 11/06/20 20:41 Sample Site Right brachial 11/19/20 11:36 ABG pH 7.500 (7.35-7.45) H 11/19/20 11:36 ABG pCO2 45.0 mmHg (35.0-45.0) 11/19/20 11:36 ABG pO2 60.0 mmHg (80.0-100.0) L 11/19/20 11:36 ABG HCO3 35.1 mmol/L (22-26) H* 11/19/20 11:36 ABG O2 Saturation 93.0 % (90-100) 11/19/20 11:36 ABG Base Excess 10.6 mmol/L (-2.0-2.0) H 11/19/20 11:36 Michael Test Na 11/19/20 11:36 A-a Gradient 597.0 mmHg 11/19/20 11:36 FiO2 100.0 11/19/20 11:36 Blood Gas Comments Lila well aw 11/19/20 11:36 Sodium 138 mmol/L (136-145) 11/19/20 04:35 Corrected Sodium 142 mmol/L (136-145) 11/19/20 04:35 Potassium 4.2 mmol/L (3.5-5.1) 11/19/20 04:35 Chloride 101 mmol/L (98-107) 11/19/20 04:35 Carbon Dioxide 34.0 mmol/L (21-32) H 11/19/20 04:35 BUN 18 mg/dL (7-18) 11/19/20 04:35 Creatinine 0.69 mg/dL (0.55-1.02) 11/19/20 04:35 Est GFR (MDRD) Af Amer > 60 (>60) 11/19/20 04:35 Est GFR (MDRD) Non-Af > 60 (>60) 11/19/20 04:35 Glucose 252 mg/dL (65-99) H 11/19/20 04:35 POC Glucose (mg/dL) 204 mg/dL (65-99) H 11/19/20 12:04 Calcium 7.6 mg/dL (8.5-10.1) L 11/19/20 04:35 Corrected Calcium 9.6 mg/dL (8.5-10.1) 11/18/20 04:24 Magnesium 2.3 mg/dL (1.7-2.9) 11/12/20 04:27 Ferritin 1723 ng/mL (8-252) H 11/06/20 20:41 Total Bilirubin 1.10 mg/dL (0.2-1.0) H 11/18/20 04:24 AST 48 Units/L (15-37) H 11/18/20 04:24 ALT 55 Units/L (12-78) 11/18/20 04:24 Alkaline Phosphatase 166 Units/L (46-116) H 11/18/20 04:24 C-Reactive Protein 3.70 mg/L (0-3.0) H 11/19/20 04:35 B-Natriuretic Peptide 32.1 pg/mL (0-79) 11/06/20 20:41 Total Protein 5.6 g/dL (6.4-8.2) L 11/18/20 04:24 Albumin 1.8 g/dL (3.4-5.0) L 11/18/20 04:24 Globulin 3.8 g/dL (2.5-4.5) 11/18/20 04:24 Albumin/Globulin Ratio 0.5 Ratio (1.1-2.1) L 11/18/20 04:24 Specimen Type Catherized urine 11/17/20 11:54 Urine Color Yellow (YELLOW) 11/17/20 11:54 Urine Appearance Clear (CLEAR) 11/17/20 11:54 Urine pH 6.5 (5.0 - 8.0) 11/17/20 11:54 Ur Specific [place] 1.010 (1.000-1.030) 11/17/20 11:54 Urine Protein 1+ (NEGATIVE) 11/17/20 11:54 Urine Glucose (UA) Negative (NEGATIVE) 11/17/20 11:54 Urine Ketones Negative (NEGATIVE) 11/17/20 11:54 Urine Occult Blood Negative (NEGATIVE) 11/17/20 11:54 Urine Nitrite Negative (NEGATIVE) 11/17/20 11:54 Urine Bilirubin Negative (NEGATIVE) 11/17/20 11:54 Urine Urobilinogen 1+ (NORMAL) 11/17/20 11:54 Ur Leukocyte Esterase Negative (NEGATIVE) 11/17/20 11:54 Urine RBC 3-5 /HPF (0-3) A 11/17/20 11:54 Urine WBC 3-5 /HPF (0-5) 11/17/20 11:54 Ur Squamous Epith Cells Few /HPF (NEGATIVE) 11/17/20 11:54 Ur Transition Epith Cell Few /HPF (NEGATIVE) 11/17/20 11:54 Urine Bacteria Trace /HPF (NEGATIVE) 11/17/20 11:54 Urine Mucus Few /HPF (NEGATIVE) 11/17/20 11:54 Ur Culture Indicated? No/not indicated 11/17/20 11:54 SARS-CoV-2 (PCR) Positive (NEGATIVE) A 11/07/20 07:23 Influenza Type A (PCR) Negative (NEGATIVE) 11/07/20 07:23 Influenza Type B (PCR) Negative (NEGATIVE) 11/07/20 07:23 RSV (PCR) Negative (NEGATIVE) 11/07/20 07:23 Plan (1) Pneumonia due to COVID-19 virus: Status: Acute (2) Acute respiratory failure with hypoxia: Status: Acute (3) Anxiety: Status: Acute
[2020-11-19] MEDS: NS 1/2 1000 ML IV 1,000 ML IV SCH ×2 (13:17→18:23)
[2020-11-19] MEDS: SNACK - Diabetic Appropriate PO SCH (21:34)
[2020-11-19] MEDS: MELATONIN PO SCH (21:41)
[2020-11-20] MEDS: NS 1/2 1000 ML IV 1,000 ML IV SCH ×3 (02:41→15:20)
[2020-11-20] MEDS: SOLU-Medrol 125 MG VIAL IVP SCH ×4 (02:41→21:35)
[2020-11-20] MEDS: ASCORBIC ACID INJ MULTI-DOSE VIAL 1,500 MG in NS 100 ML IV 100 ML IV SCH ×4 (02:43→21:34)
[2020-11-20 05:25] LABS: BASOPHILS % (AUTO) 0.2 % (0.2-1.0); HEMATOCRIT 37.7 % (36.0-47.0); HEMOGLOBIN 13.4 g/dL (12.0-16.0); LYMPHOCYTES # (AUTO) 0.1 X10^3/uL (1.3-2.9); LYMPHOCYTES % (AUTO) 0.9 % (21.0-51.0); MEAN CORPUSCULAR HEMOGLOBIN 34.2 pg (27.0-34.0); MEAN CORPUSCULAR HGB CONC 35.5 g/dL (33.0-35.0); MEAN CORPUSCULAR VOLUME 96.4 fL (80.0-100.0); MEAN PLATELET VOLUME 9.7 fL (7.4-11.0); MONOCYTES # (AUTO) 0.4 x10^3/uL (0.3-0.8); MONOCYTES % (AUTO) 3.1 % (0.0-13.0); NEUTROPHILS # (AUTO) 12.7 x10^3/uL (2.2-4.8); NEUTROPHILS % (AUTO) 95.8 % (42.0-75.0); PLATELET COUNT 69 X10^3/uL (150.0-450.0); RED BLOOD COUNT 3.91 X10^6/uL (3.5-5.4); RED CELL DISTRIBUTION WIDTH 12.1 % (11.6-16.5); WHITE BLOOD COUNT 13.2 X10^3/uL (3.6-10.0)
[2020-11-20 05:45] LABS: BLOOD UREA NITROGEN 17 mg/dL (7-18); CALCIUM 7.7 mg/dL (8.5-10.1); CARBON DIOXIDE 34.4 mmol/L (21-32); CHLORIDE 100 mmol/L (98-107); COR NA(FOR HYPERGLY) 141 mmol/L (136-145); CREATININE 0.56 mg/dL (0.55-1.02); SODIUM 138 mmol/L (136-145); eGFR NON BLACK RACES > 60 (>60)
[2020-11-20] MEDS: CYTOTEC PO SCH ×3 (05:49→21:38)
[2020-11-20] MEDS: HumuLIN R SUBCUT PRN ×3 (06:00→16:07)
[2020-11-20 06:21] LABS: PLATELET MORPHOLOGY COMMENT NORMAL (NORMAL)
[2020-11-20] MEDS ORDERED: NS 1/2 1000 ML IV 1,000 ML IV ONE (06:38)
[2020-11-20] MEDS: ACTOS PO SCH (09:01)
[2020-11-20] MEDS: GLUCOPHAGE XR 24-HR PO SCH ×2 (09:02→21:40)
[2020-11-20] MEDS: LIPITOR TAB 80 MG PO SCH (09:02)
[2020-11-20] MEDS: DIFLUCAN 200 MG IV PREMIX* 200 MG/100 ML BAG IV SCH (09:02)
[2020-11-20] MEDS: COZAAR PO SCH (09:02)
[2020-11-20] MEDS: CALAN SR 180 MG PO SCH (09:02)
[2020-11-20] MEDS: PEPCID TAB 40 MG PO SCH ×2 (09:03→21:39)
[2020-11-20] MEDS: PROTONIX INJ 40 MG VIAL IVP SCH ×2 (09:03→21:39)
[2020-11-20] MEDS: SYNTHROID 25 mcg TAB PO SCH (09:03)
[2020-11-20] MEDS: MAGIC MOUTHWASH MT SCH ×4 (09:03→21:40)
[2020-11-20] MEDS: THIAMINE HCL INJ IVP SCH ×2 (09:03→21:34)
[2020-11-20] MEDS: ZINC SULFATE PO SCH ×2 (09:04→21:38)
[2020-11-20] MEDS: VITAMIN A PO SCH (09:04)
[2020-11-20] MEDS: VITAMIN D3 125 mcg (5,000 UNITS) PO SCH (09:04)
--- NOTE | 2020-11-20 11:15 | RAD ---
HISTORYFollow up pneumoniaSTUDYPortable AP [id number]/04/2021FINDINGSThere is no significant change in heart size or contour, or distribution of bilateral airspace disease. No additional consolidation, complicating pneumothorax or pleural fluid is seen.IMPRESSIONStable appearance of bilateral pneumonia.Electronically signed by: MIGUEL MINAYA (Nov 20, 2020 11:13:51)
[2020-11-20] MEDS: ZOSYN VIAL 3.375 GRAMS 3.375 G in NS 100 ML IV + SPIKE MINIBAG* 100 ML IV SCH ×3 (11:30→21:39)
[2020-11-20] MEDS ORDERED: NS 250 ML IV 250 ML IV ONE (11:34)
[2020-11-20] MEDS ORDERED: ELIQUIS PO SCH (12:00)
--- NOTE | 2020-11-20 12:26 | PCM.PROG ---
Progress Note Progress Note for Day of Date of Exam: 11/20/20 Subjective Subjective: Patient seen at bedside, patient has remained on the BiPAP overnight at FiO2 90%. She does desat quite a bit when mask is removed for meds or eating. Her sats remain in the low 90s right now. She states she is doing ok and able to tolerate the Bipap. Labs: WBC 13.2 Hgb 13.4 Plt 69 BUN/Cr: 18/0.56 K: 4 Na: 138 Glucose 207 AB.50/45/60/35 Sputum: Gm + cocci CXR: bilateral pna present, no change noted Plan: Wean BiPAP as tolerated to keep sats>92%. Continue IV Solumedrol, and Diflucan. Will add Zosyn. Patient was on Eliquis 10 mg BID x 7 days, completed on 11/18/20. Will be starting Eliquis 5mg BID but due to low plts, will hold off till tomorrow. Continue SCDs. Continue nebs, pulmicort and IS. Continue vitamin support. Continue gentle hydration. Follow cultures. Discussed if BiPAP not able to keep saturations up then the next step would be mechanical ventilation. All questions and concerns addressed. Advised patient to rest. Continue Valium prn for anxiety. Monitor AM labs/imaging. Patient remains in a critical condition. Time spent for clinical assessment, reviewing labs/imaging, physical exam, decision making and documentation greater than 45 mins. Past Medical Family Social History Past Med/Fam/Surg Hx: No changes since H&P Allergies: Allergies No Known Drug Allergies Allergy (Verified 11/06/20 20:00) Review of Systems ROS: No change since H&P Vital Signs and I&O's Vital Signs: Temperature 99.2 F Pulse Rate [Right Brachial] 70 Pulse Rate [Apical] 76 Pulse Rate 82 Respiratory Rate 23 Blood Pressure [Right Arm] 172/80 Blood Pressure [Left Arm] 143/74 Blood Pressure 154/70 O2 Sat by Pulse Oximetry 95 Intake and Output: Intake & Output 11/17/20 11/18/20 11/19/20 11/20/20 23:59 23:59 23:59 23:59 Intake Total 3712 / 3712 3562 / 3562 2354 / 2354 814 / 814 Output Total 700 / 700 3550 / 3550 3200 / 3200 800 / 800 Balance 3012 / 3012 -846 / -846 Physical Exam Oriented: Normal Eyes: Normal Ear: Normal Nose: Normal Throat: Normal Respiratory: Generalized and Diminished Cardiovascular: Normal Auscultation: Bowel Sounds: Normal Tenderness: Normal Skin: Normal Musculoskeletal: Normal Psychiatric: Anxiety Mood Description: Anxious Affect: Anxious Speech Pattern: Clear and Appropriate Laboratory and Diagnostics Result Diagrams: 11/20/20 04:20 11/20/20 04:20 Labs: 11/19/20 12:03 Sputum - Expectorated Sputum Sputum Culture - Preliminary 11/19/20 12:03 Sputum - Expectorated Sputum - Final Laboratory WBC 13.2 X10^3/uL (3.6-10.0) H 11/20/20 04:20 RBC 3.91 X10^6/uL (3.5-5.4) 11/20/20 04:20 Hgb 13.4 g/dL (12.0-16.0) 11/20/20 04:20 Hct 37.7 % (36.0-47.0) 11/20/20 04:20 MCV 96.4 fL (80.0-100.0) 11/20/20 04:20 MCH 34.2 pg (27.0-34.0) H 11/20/20 04:20 MCHC 35.5 g/dL (33.0-35.0) H 11/20/20 04:20 RDW 12.1 % (11.6-16.5) 11/20/20 04:20 Plt Count 69 X10^3/uL (150.0-450.0) L 11/20/20 04:20 Plt Count Comment Decreased (ADEQUATE) A 11/20/20 04:20 MPV 9.7 fL (7.4-11.0) 11/20/20 04:20 Neut % (Auto) 95.8 % (42.0-75.0) H 11/20/20 04:20 Lymph % (Auto) 0.9 % (21.0-51.0) L 11/20/20 04:20 [place] % (Auto) 3.1 % (0.0-13.0) 11/20/20 04:20 Eos % (Auto) 0.0 % (0.9-2.9) L 11/20/20 04:20 Baso % (Auto) 0.2 % (0.2-1.0) 11/20/20 04:20 Neut # (Auto) 12.7 x10^3/uL (2.2-4.8) H 11/20/20 04:20 Lymph # (Auto) 0.1 X10^3/uL (1.3-2.9) L 11/20/20 04:20 [place] # (Auto) 0.4 x10^3/uL (0.3-0.8) 11/20/20 04:20 Eos # (Auto) 0.0 x10^3/uL (0.0-0.2) 11/20/20 04:20 Baso # (Auto) 0.0 X10^3/uL (0.0-0.1) 11/20/20 04:20 Absolute Nucleated RBC 0.0 /100WBC 11/20/20 04:20 Total Counted 100 11/20/20 04:20 Neutrophils % (Manual) 98 % (39-76) H 11/20/20 04:20 Band Neutrophils % 5 % (0-10) 11/14/20 04:25 Lymphocytes % (Manual) 2 % (13-43) L 11/20/20 04:20 Monocytes % (Manual) 1 % (4-9) L 11/18/20 04:24 Plt Morphology Comment Normal (NORMAL) 11/20/20 04:20 RBC Morphology Normal (NORMAL) 11/20/20 04:20 D-Dimer 0.96 ug/ml (0.0-0.57) H* 11/06/20 20:41 Sample Site Right brachial 11/19/20 11:36 ABG pH 7.500 (7.35-7.45) H 11/19/20 11:36 ABG pCO2 45.0 mmHg (35.0-45.0) 11/19/20 11:36 ABG pO2 60.0 mmHg (80.0-100.0) L 11/19/20 11:36 ABG HCO3 35.1 mmol/L (22-26) H* 11/19/20 11:36 ABG O2 Saturation 93.0 % (90-100) 11/19/20 11:36 ABG Base Excess 10.6 mmol/L (-2.0-2.0) H 11/19/20 11:36 Michael Test Na 11/19/20 11:36 A-a Gradient 597.0 mmHg 11/19/20 11:36 FiO2 100.0 11/19/20 11:36 Blood Gas Comments Lila well aw 11/19/20 11:36 Sodium 138 mmol/L (136-145) 11/20/20 04:20 Corrected Sodium 141 mmol/L (136-145) 11/20/20 04:20 Potassium 4.0 mmol/L (3.5-5.1) 11/20/20 04:20 Chloride 100 mmol/L (98-107) 11/20/20 04:20 Carbon Dioxide 34.4 mmol/L (21-32) H 11/20/20 04:20 BUN 17 mg/dL (7-18) 11/20/20 04:20 Creatinine 0.56 mg/dL (0.55-1.02) 11/20/20 04:20 Est GFR (MDRD) Af Amer > 60 (>60) 11/20/20 04:20 Est GFR (MDRD) Non-Af > 60 (>60) 11/20/20 04:20 Glucose 207 mg/dL (65-99) H 11/20/20 04:20 POC Glucose (mg/dL) 230 mg/dL (65-99) H 11/20/20 11:35 Calcium 7.7 mg/dL (8.5-10.1) L 11/20/20 04:20 Corrected Calcium 9.6 mg/dL (8.5-10.1) 11/18/20 04:24 Magnesium 2.3 mg/dL (1.7-2.9) 11/12/20 04:27 Ferritin 1723 ng/mL (8-252) H 11/06/20 20:41 Total Bilirubin 1.10 mg/dL (0.2-1.0) H 11/18/20 04:24 AST 48 Units/L (15-37) H 11/18/20 04:24 ALT 55 Units/L (12-78) 11/18/20 04:24 Alkaline Phosphatase 166 Units/L (46-116) H 11/18/20 04:24 C-Reactive Protein 3.70 mg/L (0-3.0) H 11/19/20 04:35 B-Natriuretic Peptide 32.1 pg/mL (0-79) 11/06/20 20:41 Total Protein 5.6 g/dL (6.4-8.2) L 11/18/20 04:24 Albumin 1.8 g/dL (3.4-5.0) L 11/18/20 04:24 Globulin 3.8 g/dL (2.5-4.5) 11/18/20 04:24 Albumin/Globulin Ratio 0.5 Ratio (1.1-2.1) L 11/18/20 04:24 Specimen Type Catherized urine 11/17/20 11:54 Urine Color Yellow (YELLOW) 11/17/20 11:54 Urine Appearance Clear (CLEAR) 11/17/20 11:54 Urine pH 6.5 (5.0 - 8.0) 11/17/20 11:54 Ur Specific [place] 1.010 (1.000-1.030) 11/17/20 11:54 Urine Protein 1+ (NEGATIVE) 11/17/20 11:54 Urine Glucose (UA) Negative (NEGATIVE) 11/17/20 11:54 Urine Ketones Negative (NEGATIVE) 11/17/20 11:54 Urine Occult Blood Negative (NEGATIVE) 11/17/20 11:54 Urine Nitrite Negative (NEGATIVE) 11/17/20 11:54 Urine Bilirubin Negative (NEGATIVE) 11/17/20 11:54 Urine Urobilinogen 1+ (NORMAL) 11/17/20 11:54 Ur Leukocyte Esterase Negative (NEGATIVE) 11/17/20 11:54 Urine RBC 3-5 /HPF (0-3) A 11/17/20 11:54 Urine WBC 3-5 /HPF (0-5) 11/17/20 11:54 Ur Squamous Epith Cells Few /HPF (NEGATIVE) 11/17/20 11:54 Ur Transition Epith Cell Few /HPF (NEGATIVE) 11/17/20 11:54 Urine Bacteria Trace /HPF (NEGATIVE) 11/17/20 11:54 Urine Mucus Few /HPF (NEGATIVE) 11/17/20 11:54 Ur Culture Indicated? No/not indicated 11/17/20 11:54 SARS-CoV-2 (PCR) Positive (NEGATIVE) A 11/07/20 07:23 Influenza Type A (PCR) Negative (NEGATIVE) 11/07/20 07:23 Influenza Type B (PCR) Negative (NEGATIVE) 11/07/20 07:23 RSV (PCR) Negative (NEGATIVE) 11/07/20 07:23 Plan (1) Pneumonia due to COVID-19 virus: Status: Acute (2) Acute respiratory failure with hypoxia: Status: Acute (3) Anxiety: Status: Acute
[2020-11-20] MEDS: BROVANA IN SCH (20:06)
[2020-11-20] MEDS: PULMICORT NEB TX 0.5 MG NEB SCH (20:06)
[2020-11-20] MEDS: MELATONIN PO SCH (21:39)
[2020-11-20] MEDS: SNACK - Diabetic Appropriate PO SCH (21:40)
[2020-11-21] MEDS: SOLU-Medrol 125 MG VIAL IVP SCH ×4 (02:30→20:41)
[2020-11-21] MEDS: ASCORBIC ACID INJ MULTI-DOSE VIAL 1,500 MG in NS 100 ML IV 100 ML IV SCH ×4 (02:30→20:40)
[2020-11-21 05:17] LABS: BLOOD UREA NITROGEN 17 mg/dL (7-18); CALCIUM 7.5 mg/dL (8.5-10.1); CARBON DIOXIDE 35.6 mmol/L (21-32); CHLORIDE 97 mmol/L (98-107); COR NA(FOR HYPERGLY) 139 mmol/L (136-145); CREATININE 0.61 mg/dL (0.55-1.02); SODIUM 135 mmol/L (136-145); eGFR NON BLACK RACES > 60 (>60)
[2020-11-21 05:20] LABS: BASOPHILS % (AUTO) 0.2 % (0.2-1.0); HEMATOCRIT 37.4 % (36.0-47.0); HEMOGLOBIN 13.4 g/dL (12.0-16.0); LYMPHOCYTES # (AUTO) 0.1 X10^3/uL (1.3-2.9); LYMPHOCYTES % (AUTO) 1.3 % (21.0-51.0); MEAN CORPUSCULAR HEMOGLOBIN 34.4 pg (27.0-34.0); MEAN CORPUSCULAR HGB CONC 35.8 g/dL (33.0-35.0); MEAN CORPUSCULAR VOLUME 96.1 fL (80.0-100.0); MEAN PLATELET VOLUME 9.5 fL (7.4-11.0); MONOCYTES # (AUTO) 0.3 x10^3/uL (0.3-0.8); MONOCYTES % (AUTO) 2.4 % (0.0-13.0); NEUTROPHILS # (AUTO) 9.9 x10^3/uL (2.2-4.8); NEUTROPHILS % (AUTO) 96.1 % (42.0-75.0); PLATELET COUNT 60 X10^3/uL (150.0-450.0); RED CELL DISTRIBUTION WIDTH 12.1 % (11.6-16.5); WHITE BLOOD COUNT 10.3 X10^3/uL (3.6-10.0)
[2020-11-21 05:45] LABS: ABG BASE EXCESS 11.6 mmol/L (-2.0-2.0)
[2020-11-21 05:46] LABS: ABG ALLEN TEST POS; ABG HCO3 37.1 mmol/L (22-26)
[2020-11-21 05:56] LABS: PLATELET MORPHOLOGY COMMENT NORMAL (NORMAL)
[2020-11-21] MEDS: CYTOTEC PO SCH ×3 (05:58→22:38)
[2020-11-21] MEDS: ZOSYN VIAL 3.375 GRAMS 3.375 G in NS 100 ML IV + SPIKE MINIBAG* 100 ML IV SCH ×3 (06:02→22:38)
[2020-11-21] MEDS: HumuLIN R SUBCUT PRN ×4 (06:09→20:41)
[2020-11-21] MEDS: NS 1/2 1000 ML IV 1,000 ML IV SCH ×3 (07:21→15:08)
--- NOTE | 2020-11-21 07:54 | RAD ---
HISTORYCOVID PNEUMONIASTUDYCHEST, 1 [id number]/06/2021FINDINGSAbnormal opacity in the left and right lung could be pneumonia, better appreciated on the CT 11/06/2020. There has been improvement since yesterday. No pleural effusion or pneumothorax.Heart size is normal.Bones are unremarkable.EKG leads are noted.IMPRESSION1. Improved pneumoniaElectronically signed by: Valentín Pollard (Nov 21, 2020 07:52:52)
[2020-11-21] MEDS ORDERED: SOLU-Medrol 40 MG VIAL ONE (08:47)
[2020-11-21] MEDS: PROTONIX INJ 40 MG VIAL IVP SCH ×2 (08:55→20:39)
[2020-11-21] MEDS: THIAMINE HCL INJ IVP SCH ×2 (08:55→20:44)
[2020-11-21] MEDS: LIPITOR TAB 80 MG PO SCH (08:56)
[2020-11-21] MEDS: VITAMIN D3 125 mcg (5,000 UNITS) PO SCH (08:56)
[2020-11-21] MEDS: ZINC SULFATE PO SCH ×2 (08:56→20:40)
[2020-11-21] MEDS: VITAMIN A PO SCH (08:56)
[2020-11-21] MEDS: ACTOS PO SCH (08:57)
[2020-11-21] MEDS: CALAN SR 180 MG PO SCH (08:57)
[2020-11-21] MEDS: GLUCOPHAGE XR 24-HR PO SCH ×2 (08:57→20:44)
[2020-11-21] MEDS: SYNTHROID 25 mcg TAB PO SCH (08:57)
[2020-11-21] MEDS: COZAAR PO SCH (08:58)
[2020-11-21] MEDS: MAGIC MOUTHWASH MT SCH ×4 (09:26→20:40)
[2020-11-21] MEDS: PULMICORT NEB TX 0.5 MG NEB SCH ×2 (09:30→20:40)
[2020-11-21] MEDS: BROVANA IN SCH ×2 (09:30→20:40)
[2020-11-21] MEDS: PEPCID TAB 40 MG PO SCH ×2 (09:31→20:39)
[2020-11-21] MEDS: DIFLUCAN 200 MG IV PREMIX* 200 MG/100 ML BAG IV SCH (10:20)
[2020-11-21] MEDS ORDERED: NS 1/2 1000 ML IV 1,000 ML IV ONE (11:54)
[2020-11-21] MEDS: MELATONIN PO SCH (20:40)
[2020-11-21] MEDS: SNACK - Diabetic Appropriate PO SCH (22:37)
[2020-11-22] MEDS ORDERED: NS 1/2 1000 ML IV 1,000 ML IV ONE ×2 (01:37→16:56)
[2020-11-22] MEDS: NS 1/2 1000 ML IV 1,000 ML IV SCH ×3 (02:16→17:30)
[2020-11-22] MEDS: SOLU-Medrol 125 MG VIAL IVP SCH ×2 (02:16→08:26)
[2020-11-22] MEDS: ASCORBIC ACID INJ MULTI-DOSE VIAL 1,500 MG in NS 100 ML IV 100 ML IV SCH ×4 (02:16→20:42)
[2020-11-22 05:07] LABS: BASOPHILS # (AUTO) 0.1 X10^3/uL (0.0-0.1); BASOPHILS % (AUTO) 0.4 % (0.2-1.0); HEMATOCRIT 37.9 % (36.0-47.0); HEMOGLOBIN 13.4 g/dL (12.0-16.0); LYMPHOCYTES # (AUTO) 0.2 X10^3/uL (1.3-2.9); LYMPHOCYTES % (AUTO) 1.8 % (21.0-51.0); MEAN CORPUSCULAR HEMOGLOBIN 34.1 pg (27.0-34.0); MEAN CORPUSCULAR HGB CONC 35.4 g/dL (33.0-35.0); MEAN CORPUSCULAR VOLUME 96.4 fL (80.0-100.0); MEAN PLATELET VOLUME 9.2 fL (7.4-11.0); MONOCYTES # (AUTO) 0.4 x10^3/uL (0.3-0.8); MONOCYTES % (AUTO) 3.3 % (0.0-13.0); NEUTROPHILS # (AUTO) 11.5 x10^3/uL (2.2-4.8); NEUTROPHILS % (AUTO) 94.5 % (42.0-75.0); PLATELET COUNT 60 X10^3/uL (150.0-450.0); RED BLOOD COUNT 3.93 X10^6/uL (3.5-5.4); RED CELL DISTRIBUTION WIDTH 12.3 % (11.6-16.5); WHITE BLOOD COUNT 12.2 X10^3/uL (3.6-10.0)
[2020-11-22 05:13] LABS: ABG BASE EXCESS 12.6 mmol/L (-2.0-2.0)
[2020-11-22 05:14] LABS: ABG ALLEN TEST POS
[2020-11-22] MEDS ORDERED: NS 100 ML IV + SPIKE MINIBAG* 100 ML IV ONE (05:20)
[2020-11-22 05:39] LABS: ALANINE AMINOTRANSFERASE 81 Units/L (12-78); ALBUMIN 1.8 g/dL (3.4-5.0); ALKALINE PHOSPHATASE 121 Units/L (46-116); ASPARTATE AMINO TRANSFERASE 76 Units/L (15-37); BLOOD UREA NITROGEN 14 mg/dL (7-18); CALCIUM 7.6 mg/dL (8.5-10.1); CARBON DIOXIDE 33.6 mmol/L (21-32); CHLORIDE 98 mmol/L (98-107); COR CA(FOR HYPOALB) 9.4 mg/dL (8.5-10.1); COR NA(FOR HYPERGLY) 137 mmol/L (136-145); SODIUM 135 mmol/L (136-145); TOTAL PROTEIN 5.4 g/dL (6.4-8.2); eGFR NON BLACK RACES > 60 (>60)
[2020-11-22] MEDS: CYTOTEC PO SCH ×3 (05:56→22:45)
[2020-11-22] MEDS: ZOSYN VIAL 3.375 GRAMS 3.375 G in NS 100 ML IV + SPIKE MINIBAG* 100 ML IV SCH (05:58)
[2020-11-22 05:59] LABS: PLATELET MORPHOLOGY COMMENT NORMAL (NORMAL)
[2020-11-22] MEDS: HumuLIN R SUBCUT PRN ×4 (05:59→20:43)
[2020-11-22] MEDS: ZOSYN VIAL 4.5 GRAMS 4.5 G in NS 100 ML IV + SPIKE MINIBAG* 100 ML IV SCH ×3 (07:56→22:45)
--- NOTE | 2020-11-22 08:02 | RAD ---
HISTORYCOVID PNEUMONIASTUDYCHEST, 1 [id number]/07/2021.TECHNIQUEAP view of the chestFINDINGSCardiac and mediastinal contours are within normal limits. No significant change in bilateral hazy and interstitial pulmonary opacities worst in the lung bases. No definite pleural effusion or pneumothorax.IMPRESSIONNo significant change.Electronically signed by: London Moody (Nov 22, 2020 07:59:52)
[2020-11-22] MEDS: ZINC SULFATE PO SCH ×2 (08:25→20:42)
[2020-11-22] MEDS: PEPCID TAB 40 MG PO SCH ×2 (08:25→20:42)
[2020-11-22] MEDS: VITAMIN A PO SCH (08:25)
[2020-11-22] MEDS: GLUCOPHAGE XR 24-HR PO SCH ×2 (08:25→20:42)
[2020-11-22] MEDS: LIPITOR TAB 80 MG PO SCH (08:26)
[2020-11-22] MEDS: THIAMINE HCL INJ IVP SCH ×2 (08:26→20:44)
[2020-11-22] MEDS: PROTONIX INJ 40 MG VIAL IVP SCH ×2 (08:26→20:42)
[2020-11-22] MEDS: SYNTHROID 25 mcg TAB PO SCH (08:26)
[2020-11-22] MEDS: CALAN SR 180 MG PO SCH (08:27)
[2020-11-22] MEDS: COZAAR PO SCH (08:27)
[2020-11-22] MEDS: ACTOS PO SCH (08:27)
[2020-11-22] MEDS: VITAMIN D3 125 mcg (5,000 UNITS) PO SCH (08:28)
[2020-11-22] MEDS: MAGIC MOUTHWASH MT SCH ×4 (08:50→20:44)
[2020-11-22] MEDS: SOLU-Medrol 40 MG VIAL IVP SCH ×3 (08:51→20:42)
[2020-11-22] MEDS: PULMICORT NEB TX 0.5 MG NEB SCH ×2 (09:58→20:29)
[2020-11-22] MEDS: BROVANA IN SCH ×2 (09:58→20:29)
[2020-11-22] MEDS: DIFLUCAN 200 MG IV PREMIX* 200 MG/100 ML BAG IV SCH (10:36)
[2020-11-22] MEDS: SNACK - Diabetic Appropriate PO SCH (20:00)
[2020-11-22] MEDS: MELATONIN PO SCH (20:42)
[2020-11-23] MEDS: SOLU-Medrol 40 MG VIAL IVP SCH (02:46)
[2020-11-23] MEDS: ASCORBIC ACID INJ MULTI-DOSE VIAL 1,500 MG in NS 100 ML IV 100 ML IV SCH (02:46)
[2020-11-23] MEDS: MORPHINE SULFATE INJ 2 MG INJ IVP PRN (02:47)
[2020-11-23 04:53] LABS: ALANINE AMINOTRANSFERASE 95 Units/L (12-78); ALBUMIN 1.7 g/dL (3.4-5.0); ALKALINE PHOSPHATASE 116 Units/L (46-116); ASPARTATE AMINO TRANSFERASE 80 Units/L (15-37); BLOOD UREA NITROGEN 14 mg/dL (7-18); CARBON DIOXIDE 34.8 mmol/L (21-32); CHLORIDE 98 mmol/L (98-107); COR NA(FOR HYPERGLY) 137 mmol/L (136-145); CREATININE 0.58 mg/dL (0.55-1.02); SODIUM 135 mmol/L (136-145); TOTAL PROTEIN 5.1 g/dL (6.4-8.2); eGFR NON BLACK RACES > 60 (>60)
[2020-11-23 04:57] LABS: BASOPHILS # (AUTO) 0.1 X10^3/uL (0.0-0.1); BASOPHILS % (AUTO) 0.7 % (0.2-1.0); EOSINOPHILS % (AUTO) 0.1 % (0.9-2.9); HEMATOCRIT 36.5 % (36.0-47.0); HEMOGLOBIN 13.1 g/dL (12.0-16.0); LYMPHOCYTES # (AUTO) 0.2 X10^3/uL (1.3-2.9); LYMPHOCYTES % (AUTO) 1.5 % (21.0-51.0); MEAN CORPUSCULAR HEMOGLOBIN 34.5 pg (27.0-34.0); MEAN CORPUSCULAR HGB CONC 35.8 g/dL (33.0-35.0); MEAN CORPUSCULAR VOLUME 96.4 fL (80.0-100.0); MEAN PLATELET VOLUME 9.5 fL (7.4-11.0); MONOCYTES # (AUTO) 0.2 x10^3/uL (0.3-0.8); MONOCYTES % (AUTO) 2.2 % (0.0-13.0); NEUTROPHILS # (AUTO) 10.4 x10^3/uL (2.2-4.8); NEUTROPHILS % (AUTO) 95.5 % (42.0-75.0); PLATELET COUNT 56 X10^3/uL (150.0-450.0); RED BLOOD COUNT 3.78 X10^6/uL (3.5-5.4); RED CELL DISTRIBUTION WIDTH 12.3 % (11.6-16.5); WHITE BLOOD COUNT 10.9 X10^3/uL (3.6-10.0)
[2020-11-23 05:00] LABS: CALCIUM 7.6 mg/dL (8.5-10.1); COR CA(FOR HYPOALB) 9.4 mg/dL (8.5-10.1)
[2020-11-23] MEDS ORDERED: NS 1/2 1000 ML IV 1,000 ML IV ONE ×2 (05:04→23:44)
[2020-11-23] MEDS ORDERED: NS 250 ML IV 250 ML IV ONE (05:05)
[2020-11-23 05:27] LABS: ABG BASE EXCESS 10.9 mmol/L (-2.0-2.0)
[2020-11-23 05:29] LABS: ABG ALLEN TEST POS; ABG HCO3 37.2 mmol/L (22-26)
[2020-11-23] MEDS: CYTOTEC PO SCH ×3 (05:44→21:28)
[2020-11-23] MEDS: ZOSYN VIAL 4.5 GRAMS 4.5 G in NS 100 ML IV + SPIKE MINIBAG* 100 ML IV SCH ×3 (05:45→21:28)
[2020-11-23] MEDS: NS 1/2 1000 ML IV 1,000 ML IV SCH ×3 (05:45→20:23)
[2020-11-23] MEDS: HumuLIN R SUBCUT PRN ×4 (05:45→16:30)
[2020-11-23 06:18] LABS: BAND NEUTROPHILS % 1 % (0-10); PLATELET MORPHOLOGY COMMENT NORMAL (NORMAL)
--- NOTE | 2020-11-23 08:19 | RAD ---
HISTORYCOVID PNEUMONIASTUDYCHEST, 1 [id number]/08/2021FINDINGSAbnormal opacity in the left and right lung is consistent with pneumonia. This has a lobular distribution on the chest CT 11/06/2020 suggesting bronchopneumonia. But there may be a slight progression from yesterday.No pleural effusion or pneumothorax.The heart size is magnified.Bones are unremarkable.EKG leads are noted.IMPRESSION1. Progressed bronchopneumoniaElectronically signed by: Valentín Pollard (Nov 23, 2020 08:17:21)
[2020-11-23] MEDS: COZAAR PO SCH (09:11)
[2020-11-23] MEDS: ACTOS PO SCH (09:11)
[2020-11-23] MEDS: CALAN SR 180 MG PO SCH (09:11)
[2020-11-23] MEDS: PEPCID TAB 40 MG PO SCH ×2 (09:12→20:25)
[2020-11-23] MEDS: GLUCOPHAGE XR 24-HR PO SCH ×2 (09:12→20:24)
[2020-11-23] MEDS: PROTONIX INJ 40 MG VIAL IVP SCH ×2 (09:13→20:25)
[2020-11-23] MEDS: ZINC SULFATE PO SCH ×2 (09:13→20:25)
[2020-11-23] MEDS: SYNTHROID 25 mcg TAB PO SCH (09:13)
[2020-11-23] MEDS: VITAMIN D3 125 mcg (5,000 UNITS) PO SCH (09:14)
[2020-11-23] MEDS: PULMICORT NEB TX 0.5 MG NEB SCH ×2 (09:23→20:46)
[2020-11-23] MEDS: BROVANA IN SCH ×2 (09:23→20:46)
[2020-11-23] MEDS: DIFLUCAN PO SCH (09:29)
[2020-11-23] MEDS: LIPITOR TAB 80 MG PO SCH (09:30)
[2020-11-23] MEDS: PREDNISONE TAB 20 MG PO SCH (09:31)
[2020-11-23] MEDS: VITAMIN A PO SCH (09:31)
[2020-11-23] MEDS: VITAMIN C PO SCH ×2 (09:31→20:25)
[2020-11-23] MEDS: MAGIC MOUTHWASH MT SCH ×4 (09:32→20:24)
[2020-11-23] MEDS ORDERED: AVELOX TAB 400 MG PO SCH (20:00)
[2020-11-23] MEDS: MELATONIN PO SCH (20:24)
[2020-11-23] MEDS: SNACK - Diabetic Appropriate PO SCH (20:24)
[2020-11-24] MEDS: NS 1/2 1000 ML IV 1,000 ML IV SCH ×2 (00:25→12:50)
[2020-11-24 05:09] LABS: BASOPHILS % (AUTO) 0.1 % (0.2-1.0); EOSINOPHILS # (AUTO) 0.2 x10^3/uL (0.0-0.2); EOSINOPHILS % (AUTO) 1.1 % (0.9-2.9); HEMATOCRIT 38.6 % (36.0-47.0); HEMOGLOBIN 13.7 g/dL (12.0-16.0); LYMPHOCYTES # (AUTO) 0.6 X10^3/uL (1.3-2.9); LYMPHOCYTES % (AUTO) 4.2 % (21.0-51.0); MEAN CORPUSCULAR HEMOGLOBIN 34.1 pg (27.0-34.0); MEAN CORPUSCULAR HGB CONC 35.4 g/dL (33.0-35.0); MEAN CORPUSCULAR VOLUME 96.2 fL (80.0-100.0); MEAN PLATELET VOLUME 9.2 fL (7.4-11.0); MONOCYTES # (AUTO) 0.4 x10^3/uL (0.3-0.8); MONOCYTES % (AUTO) 2.7 % (0.0-13.0); NEUTROPHILS # (AUTO) 12.5 x10^3/uL (2.2-4.8); NEUTROPHILS % (AUTO) 91.9 % (42.0-75.0); PLATELET COUNT 63 X10^3/uL (150.0-450.0); RED BLOOD COUNT 4.02 X10^6/uL (3.5-5.4); RED CELL DISTRIBUTION WIDTH 12.2 % (11.6-16.5); WHITE BLOOD COUNT 13.6 X10^3/uL (3.6-10.0)
[2020-11-24 05:26] LABS: ABG BASE EXCESS 10.2 mmol/L (-2.0-2.0)
[2020-11-24 05:27] LABS: ALANINE AMINOTRANSFERASE 111 Units/L (12-78); ALBUMIN 1.8 g/dL (3.4-5.0); ALKALINE PHOSPHATASE 115 Units/L (46-116); ASPARTATE AMINO TRANSFERASE 87 Units/L (15-37); BLOOD UREA NITROGEN 13 mg/dL (7-18); CALCIUM 7.8 mg/dL (8.5-10.1); CARBON DIOXIDE 35.8 mmol/L (21-32); CHLORIDE 99 mmol/L (98-107); COR CA(FOR HYPOALB) 9.6 mg/dL (8.5-10.1); CREATININE 0.63 mg/dL (0.55-1.02); SODIUM 136 mmol/L (136-145); TOTAL PROTEIN 5.4 g/dL (6.4-8.2); eGFR NON BLACK RACES > 60 (>60)
[2020-11-24 05:27] LABS: ABG ALLEN TEST POS; ABG HCO3 35.6 mmol/L (22-26)
[2020-11-24] MEDS: CYTOTEC PO SCH ×3 (05:48→22:34)
[2020-11-24] MEDS: ZOSYN VIAL 4.5 GRAMS 4.5 G in NS 100 ML IV + SPIKE MINIBAG* 100 ML IV SCH ×3 (05:48→21:35)
[2020-11-24 06:02] LABS: PLATELET MORPHOLOGY COMMENT NORMAL (NORMAL)
--- NOTE | 2020-11-24 07:57 | RAD ---
HISTORYCOVID PNEUMONIASTUDYCHEST, 1 [id number]/09/2021FINDINGSSubtle abnormal areas of opacity in the lower lungs are consistent with pneumonia. Better appreciated on CT chest 11/06/2020. No change from yesterday.No pleural effusion or pneumothorax.Heart size is normal.Bones are unremarkable.EKG leads are noted.IMPRESSION1. Unchanged pneumoniaElectronically signed by: Valentín Pollard (Nov 24, 2020 07:55:34)
[2020-11-24] MEDS: AVELOX TAB 400 MG PO SCH (08:29)
[2020-11-24] MEDS: CALAN SR 180 MG PO SCH (08:30)
[2020-11-24] MEDS: COZAAR PO SCH (08:31)
[2020-11-24] MEDS: DIFLUCAN PO SCH (08:31)
[2020-11-24] MEDS: PEPCID TAB 40 MG PO SCH ×2 (08:32→22:34)
[2020-11-24] MEDS: LIPITOR TAB 80 MG PO SCH (08:32)
[2020-11-24] MEDS: VITAMIN C PO SCH ×2 (08:33→22:34)
[2020-11-24] MEDS: SYNTHROID 25 mcg TAB PO SCH (08:33)
[2020-11-24] MEDS: ZINC SULFATE PO SCH ×2 (08:34→22:34)
[2020-11-24] MEDS: VITAMIN D3 125 mcg (5,000 UNITS) PO SCH (08:34)
[2020-11-24] MEDS: PROTONIX INJ 40 MG VIAL IVP SCH ×2 (08:35→22:35)
[2020-11-24] MEDS: PREDNISONE TAB 20 MG PO SCH (08:35)
[2020-11-24] MEDS: MAGIC MOUTHWASH MT SCH ×3 (08:35→16:47)
[2020-11-24] MEDS: ACTOS PO SCH (08:36)
[2020-11-24] MEDS: GLUCOPHAGE XR 24-HR PO SCH ×2 (08:44→22:33)
[2020-11-24] MEDS: VITAMIN A PO SCH (08:44)
[2020-11-24] MEDS: PULMICORT NEB TX 0.5 MG NEB SCH ×2 (09:04→20:50)
[2020-11-24] MEDS: BROVANA IN SCH ×2 (09:04→20:50)
[2020-11-24] MEDS: K-DUR TAB 20 MEQ PO PRN (09:56)
[2020-11-24] MEDS ORDERED: NS 1/2 1000 ML IV 1,000 ML IV ONE (10:26)
[2020-11-24] MEDS: MAALOX or MYLANTA PO PRN (11:47)
[2020-11-24] MEDS: VALIUM INJ IVP PRN (13:32)
[2020-11-24] MEDS: SNACK - Diabetic Appropriate PO SCH (20:40)
[2020-11-24] MEDS: MELATONIN PO SCH (22:33)
[2020-11-25] MEDS ORDERED: NS 1/2 1000 ML IV 1,000 ML IV ONE ×3 (02:08→19:30)
[2020-11-25] MEDS: NS 1/2 1000 ML IV 1,000 ML IV SCH ×3 (02:44→15:20)
[2020-11-25] MEDS: MAGIC MOUTHWASH MT SCH ×5 (02:44→22:00)
[2020-11-25 04:57] LABS: ABG BASE EXCESS 10.7 mmol/L (-2.0-2.0)
[2020-11-25 04:59] LABS: ABG ALLEN TEST POS; ABG HCO3 36.7 mmol/L (22-26)
[2020-11-25] MEDS: CYTOTEC PO SCH ×3 (05:42→22:00)
[2020-11-25] MEDS: ZOSYN VIAL 4.5 GRAMS 4.5 G in NS 100 ML IV + SPIKE MINIBAG* 100 ML IV SCH ×3 (05:42→22:00)
[2020-11-25 06:14] LABS: BASOPHILS % (AUTO) 0.1 % (0.2-1.0); EOSINOPHILS # (AUTO) 0.1 x10^3/uL (0.0-0.2); EOSINOPHILS % (AUTO) 0.7 % (0.9-2.9); HEMATOCRIT 37.4 % (36.0-47.0); HEMOGLOBIN 13.2 g/dL (12.0-16.0); LYMPHOCYTES # (AUTO) 0.6 X10^3/uL (1.3-2.9); LYMPHOCYTES % (AUTO) 5.1 % (21.0-51.0); MEAN CORPUSCULAR HEMOGLOBIN 34.1 pg (27.0-34.0); MEAN CORPUSCULAR HGB CONC 35.3 g/dL (33.0-35.0); MEAN CORPUSCULAR VOLUME 96.7 fL (80.0-100.0); MEAN PLATELET VOLUME 9.4 fL (7.4-11.0); MONOCYTES # (AUTO) 0.3 x10^3/uL (0.3-0.8); MONOCYTES % (AUTO) 2.5 % (0.0-13.0); NEUTROPHILS # (AUTO) 10.3 x10^3/uL (2.2-4.8); NEUTROPHILS % (AUTO) 91.6 % (42.0-75.0); PLATELET COUNT 60 X10^3/uL (150.0-450.0); RED BLOOD COUNT 3.87 X10^6/uL (3.5-5.4); RED CELL DISTRIBUTION WIDTH 12.5 % (11.6-16.5); WHITE BLOOD COUNT 11.2 X10^3/uL (3.6-10.0)
[2020-11-25 06:31] LABS: ALANINE AMINOTRANSFERASE 114 Units/L (12-78); ALBUMIN 1.9 g/dL (3.4-5.0); ALKALINE PHOSPHATASE 115 Units/L (46-116); ASPARTATE AMINO TRANSFERASE 86 Units/L (15-37); BLOOD UREA NITROGEN 12 mg/dL (7-18); CALCIUM 7.7 mg/dL (8.5-10.1); CARBON DIOXIDE 36.2 mmol/L (21-32); CHLORIDE 99 mmol/L (98-107); COR CA(FOR HYPOALB) 9.4 mg/dL (8.5-10.1); CREATININE 0.61 mg/dL (0.55-1.02); SODIUM 137 mmol/L (136-145); TOTAL PROTEIN 5.5 g/dL (6.4-8.2); eGFR NON BLACK RACES > 60 (>60)
--- NOTE | 2020-11-25 08:28 | RAD ---
HISTORYPneumoniaSTUDYPortable AP [id number]/10/2021FINDINGSHeart size remains within normal limits. There is no change in degree or distribution of the mixed interstitial-alveolar pulmonary infiltrates. No developing pneumothorax or pleural fluid identified.IMPRESSIONThere is no change in appearance of the bilateral pneumonia.Electronically signed by: MIGUEL MINAYA (Nov 25, 2020 08:26:49)
[2020-11-25 08:52] LABS: BAND NEUTROPHILS % 2 % (0-10); METAMYELOCYTES % 2; PLATELET MORPHOLOGY COMMENT NORMAL (NORMAL)
[2020-11-25] MEDS: PROTONIX INJ 40 MG VIAL IVP SCH ×2 (09:06→22:00)
[2020-11-25] MEDS: PULMICORT NEB TX 0.5 MG NEB SCH ×2 (09:37→21:30)
[2020-11-25] MEDS: BROVANA IN SCH ×2 (09:37→21:30)
[2020-11-25] MEDS: AVELOX TAB 400 MG PO SCH (10:12)
[2020-11-25] MEDS: ZINC SULFATE PO SCH ×2 (10:13→22:00)
[2020-11-25] MEDS: VITAMIN D3 125 mcg (5,000 UNITS) PO SCH (10:14)
[2020-11-25] MEDS: VITAMIN A PO SCH (10:14)
[2020-11-25] MEDS: PREDNISONE TAB 20 MG PO SCH (10:14)
[2020-11-25] MEDS: VITAMIN C PO SCH ×2 (10:14→22:00)
[2020-11-25] MEDS: SYNTHROID 25 mcg TAB PO SCH (10:15)
[2020-11-25] MEDS: PEPCID TAB 40 MG PO SCH ×2 (10:15→22:00)
[2020-11-25] MEDS: ACTOS PO SCH (10:15)
[2020-11-25] MEDS: CALAN SR 180 MG PO SCH (10:15)
[2020-11-25] MEDS: COZAAR PO SCH (10:16)
[2020-11-25] MEDS: DIFLUCAN PO SCH (10:16)
[2020-11-25] MEDS: GLUCOPHAGE XR 24-HR PO SCH ×2 (10:16→22:00)
[2020-11-25] MEDS: LIPITOR TAB 80 MG PO SCH (10:16)
[2020-11-25] MEDS: MAALOX or MYLANTA PO PRN (10:28)
[2020-11-25] MEDS: VALIUM INJ IVP PRN (16:40)
[2020-11-25] MEDS: SNACK - Diabetic Appropriate PO SCH (20:00)
[2020-11-25] MEDS: VISTARIL PO PRN (22:00)
[2020-11-25] MEDS: FLEXERIL TAB 10 MG PO PRN (22:00)
[2020-11-25] MEDS: MELATONIN PO SCH (22:00)
[2020-11-26] MEDS: NS 1/2 1000 ML IV 1,000 ML IV SCH ×3 (00:05→16:21)
[2020-11-26 05:41] LABS: BASOPHILS % (AUTO) 0.4 % (0.2-1.0); EOSINOPHILS % (AUTO) 0.3 % (0.9-2.9); HEMATOCRIT 35.6 % (36.0-47.0); HEMOGLOBIN 12.6 g/dL (12.0-16.0); LYMPHOCYTES # (AUTO) 0.3 X10^3/uL (1.3-2.9); LYMPHOCYTES % (AUTO) 2.8 % (21.0-51.0); MEAN CORPUSCULAR HEMOGLOBIN 34.3 pg (27.0-34.0); MEAN CORPUSCULAR HGB CONC 35.3 g/dL (33.0-35.0); MEAN CORPUSCULAR VOLUME 97.2 fL (80.0-100.0); MEAN PLATELET VOLUME 9.2 fL (7.4-11.0); MONOCYTES # (AUTO) 0.2 x10^3/uL (0.3-0.8); MONOCYTES % (AUTO) 1.6 % (0.0-13.0); NEUTROPHILS # (AUTO) 9.1 x10^3/uL (2.2-4.8); NEUTROPHILS % (AUTO) 94.9 % (42.0-75.0); PLATELET COUNT 61 X10^3/uL (150.0-450.0); RED BLOOD COUNT 3.66 X10^6/uL (3.5-5.4); RED CELL DISTRIBUTION WIDTH 13.1 % (11.6-16.5); WHITE BLOOD COUNT 9.6 X10^3/uL (3.6-10.0)
[2020-11-26 06:01] LABS: ALANINE AMINOTRANSFERASE 113 Units/L (12-78); ALBUMIN 1.8 g/dL (3.4-5.0); ALKALINE PHOSPHATASE 99 Units/L (46-116); ASPARTATE AMINO TRANSFERASE 78 Units/L (15-37); BLOOD UREA NITROGEN 10 mg/dL (7-18); CALCIUM 7.9 mg/dL (8.5-10.1); CARBON DIOXIDE 32.4 mmol/L (21-32); CHLORIDE 99 mmol/L (98-107); COR CA(FOR HYPOALB) 9.7 mg/dL (8.5-10.1); COR NA(FOR HYPERGLY) 137 mmol/L (136-145); CREATININE 0.49 mg/dL (0.55-1.02); SODIUM 136 mmol/L (136-145); TOTAL PROTEIN 5.5 g/dL (6.4-8.2); eGFR NON BLACK RACES > 60 (>60)
[2020-11-26] MEDS: CYTOTEC PO SCH ×3 (06:37→21:30)
[2020-11-26] MEDS: ZOSYN VIAL 4.5 GRAMS 4.5 G in NS 100 ML IV + SPIKE MINIBAG* 100 ML IV SCH ×3 (06:37→21:30)
[2020-11-26 06:40] LABS: PLATELET MORPHOLOGY COMMENT NORMAL (NORMAL)
[2020-11-26] MEDS: PULMICORT NEB TX 0.5 MG NEB SCH ×2 (09:07→21:00)
[2020-11-26] MEDS: BROVANA IN SCH ×2 (09:07→21:00)
[2020-11-26] MEDS: ZINC SULFATE PO SCH ×2 (09:21→21:00)
[2020-11-26] MEDS: GLUCOPHAGE XR 24-HR PO SCH ×2 (09:21→21:00)
[2020-11-26] MEDS: AVELOX TAB 400 MG PO SCH (09:21)
[2020-11-26] MEDS: SYNTHROID 25 mcg TAB PO SCH (09:22)
[2020-11-26] MEDS: VITAMIN C PO SCH ×2 (09:22→21:00)
[2020-11-26] MEDS: VITAMIN D3 125 mcg (5,000 UNITS) PO SCH (09:22)
[2020-11-26] MEDS: VITAMIN A PO SCH (09:22)
[2020-11-26] MEDS: PEPCID TAB 40 MG PO SCH ×2 (09:23→21:00)
[2020-11-26] MEDS: MAGIC MOUTHWASH MT SCH ×4 (09:23→21:00)
[2020-11-26] MEDS: DIFLUCAN PO SCH (09:23)
[2020-11-26] MEDS: PROTONIX INJ 40 MG VIAL IVP SCH ×2 (09:23→21:00)
[2020-11-26] MEDS: PREDNISONE TAB 20 MG PO SCH (09:23)
[2020-11-26] MEDS: LIPITOR TAB 80 MG PO SCH (09:24)
[2020-11-26] MEDS: COZAAR PO SCH (09:24)
[2020-11-26] MEDS: CALAN SR 180 MG PO SCH (09:24)
[2020-11-26] MEDS: ACTOS PO SCH (09:24)
[2020-11-26] MEDS ORDERED: ELIQUIS ONE (12:59)
[2020-11-26] MEDS: ELIQUIS PO SCH ×2 (13:12→21:00)
[2020-11-26] MEDS ORDERED: NS 1/2 1000 ML IV 1,000 ML IV ONE (13:46)
[2020-11-26] MEDS: SNACK - Diabetic Appropriate PO SCH (21:00)
[2020-11-26] MEDS: MELATONIN PO SCH (21:00)
[2020-11-27 05:03] LABS: BASOPHILS % (AUTO) 0.3 % (0.2-1.0); EOSINOPHILS % (AUTO) 0.4 % (0.9-2.9); HEMATOCRIT 35.2 % (36.0-47.0); HEMOGLOBIN 12.6 g/dL (12.0-16.0); LYMPHOCYTES # (AUTO) 0.5 X10^3/uL (1.3-2.9); LYMPHOCYTES % (AUTO) 4.6 % (21.0-51.0); MEAN CORPUSCULAR HEMOGLOBIN 34.9 pg (27.0-34.0); MEAN CORPUSCULAR HGB CONC 35.9 g/dL (33.0-35.0); MEAN CORPUSCULAR VOLUME 97.1 fL (80.0-100.0); MEAN PLATELET VOLUME 9.4 fL (7.4-11.0); MONOCYTES # (AUTO) 0.4 x10^3/uL (0.3-0.8); MONOCYTES % (AUTO) 3.6 % (0.0-13.0); NEUTROPHILS # (AUTO) 9.4 x10^3/uL (2.2-4.8); NEUTROPHILS % (AUTO) 91.1 % (42.0-75.0); PLATELET COUNT 69 X10^3/uL (150.0-450.0); RED BLOOD COUNT 3.62 X10^6/uL (3.5-5.4); RED CELL DISTRIBUTION WIDTH 13.2 % (11.6-16.5); WHITE BLOOD COUNT 10.3 X10^3/uL (3.6-10.0)
[2020-11-27 05:16] LABS: ALANINE AMINOTRANSFERASE 117 Units/L (12-78); ALBUMIN 1.9 g/dL (3.4-5.0); ALKALINE PHOSPHATASE 99 Units/L (46-116); ASPARTATE AMINO TRANSFERASE 72 Units/L (15-37); BLOOD UREA NITROGEN 12 mg/dL (7-18); CALCIUM 7.8 mg/dL (8.5-10.1); CARBON DIOXIDE 34.4 mmol/L (21-32); CHLORIDE 99 mmol/L (98-107); COR CA(FOR HYPOALB) 9.5 mg/dL (8.5-10.1); COR NA(FOR HYPERGLY) 137 mmol/L (136-145); CREATININE 0.49 mg/dL (0.55-1.02); SODIUM 136 mmol/L (136-145); TOTAL PROTEIN 5.6 g/dL (6.4-8.2); eGFR NON BLACK RACES > 60 (>60)
[2020-11-27] MEDS: NS 1/2 1000 ML IV 1,000 ML IV SCH ×4 (05:33→22:37)
[2020-11-27 05:39] LABS: PLATELET MORPHOLOGY COMMENT NORMAL (NORMAL)
[2020-11-27] MEDS: CYTOTEC PO SCH ×3 (05:40→21:27)
[2020-11-27] MEDS: ZOSYN VIAL 4.5 GRAMS 4.5 G in NS 100 ML IV + SPIKE MINIBAG* 100 ML IV SCH ×3 (05:41→21:27)
[2020-11-27] MEDS ORDERED: NS 1/2 1000 ML IV 1,000 ML IV ONE ×2 (05:59→22:18)
[2020-11-27] MEDS: VITAMIN A PO SCH (08:32)
[2020-11-27] MEDS: AVELOX TAB 400 MG PO SCH (08:32)
[2020-11-27] MEDS: ZINC SULFATE PO SCH ×2 (08:34→21:26)
[2020-11-27] MEDS: VITAMIN C PO SCH ×2 (08:35→21:26)
[2020-11-27] MEDS: PROTONIX INJ 40 MG VIAL IVP SCH (08:35)
[2020-11-27] MEDS: SYNTHROID 25 mcg TAB PO SCH (08:35)
[2020-11-27] MEDS: VITAMIN D3 125 mcg (5,000 UNITS) PO SCH (08:35)
[2020-11-27] MEDS: PEPCID TAB 40 MG PO SCH ×2 (08:36→21:26)
[2020-11-27] MEDS: LIPITOR TAB 80 MG PO SCH (08:37)
[2020-11-27] MEDS: ACTOS PO SCH (08:37)
[2020-11-27] MEDS: MAGIC MOUTHWASH MT SCH ×4 (08:37→21:25)
[2020-11-27] MEDS: GLUCOPHAGE XR 24-HR PO SCH ×2 (08:37→21:25)
[2020-11-27] MEDS: ELIQUIS PO SCH ×2 (08:38→21:25)
[2020-11-27] MEDS: COZAAR PO SCH (08:38)
[2020-11-27] MEDS: CALAN SR 120 MG PO SCH (08:49)
[2020-11-27] MEDS ORDERED: CALAN SR 180 MG PO SCH (09:00)
[2020-11-27] MEDS ORDERED: PREDNISONE TAB 20 MG PO SCH (09:00)
[2020-11-27] MEDS: BROVANA IN SCH ×2 (09:22→21:25)
[2020-11-27] MEDS: PULMICORT NEB TX 0.5 MG NEB SCH ×2 (09:22→21:25)
[2020-11-27] MEDS: DIFLUCAN PO SCH (09:58)
[2020-11-27] MEDS: BUTT CREAM (COMPOUND) TOP PRN (13:25)
[2020-11-27] MEDS: MELATONIN PO SCH (21:25)
[2020-11-28 05:11] LABS: BASOPHILS % (AUTO) 0.3 % (0.2-1.0); EOSINOPHILS # (AUTO) 0.1 x10^3/uL (0.0-0.2); EOSINOPHILS % (AUTO) 1.2 % (0.9-2.9); HEMATOCRIT 38.6 % (36.0-47.0); HEMOGLOBIN 13.7 g/dL (12.0-16.0); LYMPHOCYTES # (AUTO) 0.9 X10^3/uL (1.3-2.9); LYMPHOCYTES % (AUTO) 8.1 % (21.0-51.0); MEAN CORPUSCULAR HEMOGLOBIN 34.6 pg (27.0-34.0); MEAN CORPUSCULAR HGB CONC 35.4 g/dL (33.0-35.0); MEAN CORPUSCULAR VOLUME 97.8 fL (80.0-100.0); MEAN PLATELET VOLUME 9.3 fL (7.4-11.0); MONOCYTES # (AUTO) 0.5 x10^3/uL (0.3-0.8); MONOCYTES % (AUTO) 4.9 % (0.0-13.0); NEUTROPHILS # (AUTO) 9.1 x10^3/uL (2.2-4.8); NEUTROPHILS % (AUTO) 85.5 % (42.0-75.0); PLATELET COUNT 77 X10^3/uL (150.0-450.0); RED BLOOD COUNT 3.94 X10^6/uL (3.5-5.4); RED CELL DISTRIBUTION WIDTH 13.3 % (11.6-16.5); WHITE BLOOD COUNT 10.6 X10^3/uL (3.6-10.0)
[2020-11-28 05:25] LABS: ALANINE AMINOTRANSFERASE 124 Units/L (12-78); ALBUMIN 2.1 g/dL (3.4-5.0); ALKALINE PHOSPHATASE 100 Units/L (46-116); ASPARTATE AMINO TRANSFERASE 74 Units/L (15-37); BLOOD UREA NITROGEN 13 mg/dL (7-18); CHLORIDE 100 mmol/L (98-107); COR CA(FOR HYPOALB) 9.5 mg/dL (8.5-10.1); CREATININE 0.62 mg/dL (0.55-1.02); SODIUM 137 mmol/L (136-145); TOTAL PROTEIN 5.7 g/dL (6.4-8.2); eGFR NON BLACK RACES > 60 (>60)
[2020-11-28] MEDS: NS 1/2 1000 ML IV 1,000 ML IV SCH ×3 (05:32→17:44)
[2020-11-28] MEDS: CYTOTEC PO SCH ×3 (05:32→21:26)
[2020-11-28] MEDS: ZOSYN VIAL 4.5 GRAMS 4.5 G in NS 100 ML IV + SPIKE MINIBAG* 100 ML IV SCH ×3 (05:33→21:26)
[2020-11-28] MEDS: K-DUR TAB 20 MEQ PO PRN (05:51)
--- NOTE | 2020-11-28 06:37 | RAD ---
HISTORYCOVID PNEUMONIASTUDYCHEST, 1 [id number]/11/2021.TECHNIQUEAP view of the chestFINDINGSCardiac and mediastinal contours are within normal limits. No significant change in diffuse hazy and interstitial lung opacities. No definite pleural effusion or pneumothorax.IMPRESSIONNo significant change.Electronically signed by: London Moody (Nov 28, 2020 06:35:55)
[2020-11-28] MEDS: PULMICORT NEB TX 0.5 MG NEB SCH ×2 (08:42→21:34)
[2020-11-28] MEDS: BROVANA IN SCH ×2 (08:42→21:34)
[2020-11-28] MEDS: ACTOS PO SCH (09:16)
[2020-11-28] MEDS: ZINC SULFATE PO SCH ×2 (09:16→21:26)
[2020-11-28] MEDS: VITAMIN D3 125 mcg (5,000 UNITS) PO SCH (09:16)
[2020-11-28] MEDS: PEPCID TAB 40 MG PO SCH ×2 (09:17→21:26)
[2020-11-28] MEDS: VITAMIN C PO SCH ×2 (09:17→21:26)
[2020-11-28] MEDS: VITAMIN A PO SCH (09:17)
[2020-11-28] MEDS: PREDNISONE TAB 20 MG PO SCH (09:17)
[2020-11-28] MEDS: SYNTHROID 25 mcg TAB PO SCH (09:17)
[2020-11-28] MEDS: CALAN SR 120 MG PO SCH (09:18)
[2020-11-28] MEDS: LIPITOR TAB 80 MG PO SCH (09:18)
[2020-11-28] MEDS: GLUCOPHAGE XR 24-HR PO SCH ×2 (09:18→21:25)
[2020-11-28] MEDS: MAGIC MOUTHWASH MT SCH ×4 (09:18→21:25)
[2020-11-28] MEDS: DIFLUCAN PO SCH (09:19)
[2020-11-28] MEDS: COZAAR PO SCH (09:19)
[2020-11-28] MEDS: ELIQUIS PO SCH ×2 (09:19→21:25)
[2020-11-28] MEDS: AVELOX TAB 400 MG PO SCH (09:22)
[2020-11-28] MEDS ORDERED: NS 1/2 1000 ML IV 1,000 ML IV ONE (12:02)
[2020-11-28] MEDS: MELATONIN PO SCH (21:25)
[2020-11-28] MEDS: FLEXERIL TAB 10 MG PO PRN (21:48)
[2020-11-28] MEDS: BUTT CREAM (COMPOUND) TOP PRN (21:49)
[2020-11-29] MEDS ORDERED: NS 1/2 1000 ML IV 1,000 ML IV ONE ×2 (04:05→16:23)
[2020-11-29 05:19] LABS: BASOPHILS % (AUTO) 0.3 % (0.2-1.0); EOSINOPHILS # (AUTO) 0.1 x10^3/uL (0.0-0.2); EOSINOPHILS % (AUTO) 1.5 % (0.9-2.9); HEMATOCRIT 37.3 % (36.0-47.0); HEMOGLOBIN 13.2 g/dL (12.0-16.0); LYMPHOCYTES % (AUTO) 11.2 % (21.0-51.0); MEAN CORPUSCULAR HEMOGLOBIN 34.4 pg (27.0-34.0); MEAN CORPUSCULAR HGB CONC 35.4 g/dL (33.0-35.0); MEAN CORPUSCULAR VOLUME 97.1 fL (80.0-100.0); MEAN PLATELET VOLUME 8.4 fL (7.4-11.0); MONOCYTES # (AUTO) 0.4 x10^3/uL (0.3-0.8); MONOCYTES % (AUTO) 4.3 % (0.0-13.0); NEUTROPHILS # (AUTO) 7.3 x10^3/uL (2.2-4.8); NEUTROPHILS % (AUTO) 82.7 % (42.0-75.0); PLATELET COUNT 72 X10^3/uL (150.0-450.0); RED BLOOD COUNT 3.83 X10^6/uL (3.5-5.4); RED CELL DISTRIBUTION WIDTH 13.5 % (11.6-16.5); WHITE BLOOD COUNT 8.8 X10^3/uL (3.6-10.0)
[2020-11-29 05:22] LABS: ABG ALLEN TEST POS; ABG BASE EXCESS 5.8 mmol/L (-2.0-2.0); ABG HCO3 29.8 mmol/L (22-26)
[2020-11-29 05:28] LABS: ALANINE AMINOTRANSFERASE 123 Units/L (12-78); ALBUMIN 2.1 g/dL (3.4-5.0); ALKALINE PHOSPHATASE 94 Units/L (46-116); ASPARTATE AMINO TRANSFERASE 73 Units/L (15-37); BLOOD UREA NITROGEN 11 mg/dL (7-18); CHLORIDE 99 mmol/L (98-107); COR CA(FOR HYPOALB) 9.5 mg/dL (8.5-10.1); CREATININE 0.55 mg/dL (0.55-1.02); SODIUM 135 mmol/L (136-145); TOTAL PROTEIN 5.8 g/dL (6.4-8.2); eGFR NON BLACK RACES > 60 (>60)
[2020-11-29] MEDS: NS 1/2 1000 ML IV 1,000 ML IV SCH ×3 (05:32→22:08)
[2020-11-29] MEDS: CYTOTEC PO SCH ×3 (05:32→21:20)
[2020-11-29] MEDS: ZOSYN VIAL 4.5 GRAMS 4.5 G in NS 100 ML IV + SPIKE MINIBAG* 100 ML IV SCH ×3 (05:32→21:22)
[2020-11-29] MEDS: VALIUM INJ IVP PRN (05:51)
--- NOTE | 2020-11-29 06:37 | RAD ---
HISTORYCOVID PNEUMONIASTUDYCHEST, 1 [id number]/14/2021.TECHNIQUEAP view of the chestFINDINGSCardiac and mediastinal contours are within normal limits. No significant change in diffuse bilateral hazy and interstitial pulmonary opacities. No definite pleural effusion or pneumothorax.IMPRESSIONNo significant change.Electronically signed by: London Moody (Nov 29, 2020 06:36:27)
[2020-11-29] MEDS: PULMICORT NEB TX 0.5 MG NEB SCH ×2 (08:50→21:35)
[2020-11-29] MEDS: BROVANA IN SCH ×2 (08:50→21:35)
[2020-11-29] MEDS: ACTOS PO SCH (08:53)
[2020-11-29] MEDS: PREDNISONE TAB 20 MG PO SCH (08:53)
[2020-11-29] MEDS: SYNTHROID 25 mcg TAB PO SCH (08:54)
[2020-11-29] MEDS: MAGIC MOUTHWASH MT SCH ×4 (08:54→22:00)
[2020-11-29] MEDS: LIPITOR TAB 80 MG PO SCH (08:54)
[2020-11-29] MEDS: VITAMIN A PO SCH (08:54)
[2020-11-29] MEDS: VITAMIN D3 125 mcg (5,000 UNITS) PO SCH (08:54)
[2020-11-29] MEDS: PEPCID TAB 40 MG PO SCH ×2 (08:54→21:23)
[2020-11-29] MEDS: ZINC SULFATE PO SCH ×2 (08:54→21:20)
[2020-11-29] MEDS: VITAMIN C PO SCH ×2 (08:54→21:21)
[2020-11-29] MEDS: ELIQUIS PO SCH ×2 (08:55→21:20)
[2020-11-29] MEDS: GLUCOPHAGE XR 24-HR PO SCH ×2 (08:55→21:20)
[2020-11-29] MEDS: DIFLUCAN PO SCH (08:55)
[2020-11-29] MEDS: COZAAR PO SCH (08:55)
[2020-11-29] MEDS: CALAN SR 120 MG PO SCH (08:55)
[2020-11-29] MEDS: AVELOX TAB 400 MG PO SCH (08:55)
[2020-11-29] MEDS: MELATONIN PO SCH (21:21)
[2020-11-29] MEDS: VSL#3 PO SCH (21:22)
[2020-11-30] MEDS ORDERED: NS 250 ML IV 250 ML IV ONE (05:55)
[2020-11-30] MEDS: ZOSYN VIAL 4.5 GRAMS 4.5 G in NS 100 ML IV + SPIKE MINIBAG* 100 ML IV SCH (06:00)
[2020-11-30] MEDS: CYTOTEC PO SCH ×3 (06:00→21:25)
[2020-11-30 06:30] LABS: BASOPHILS % (AUTO) 0.3 % (0.2-1.0); EOSINOPHILS # (AUTO) 0.1 x10^3/uL (0.0-0.2); EOSINOPHILS % (AUTO) 1.6 % (0.9-2.9); HEMATOCRIT 35.6 % (36.0-47.0); HEMOGLOBIN 12.7 g/dL (12.0-16.0); LYMPHOCYTES # (AUTO) 0.9 X10^3/uL (1.3-2.9); LYMPHOCYTES % (AUTO) 9.9 % (21.0-51.0); MEAN CORPUSCULAR HEMOGLOBIN 35.1 pg (27.0-34.0); MEAN CORPUSCULAR HGB CONC 35.7 g/dL (33.0-35.0); MEAN CORPUSCULAR VOLUME 98.4 fL (80.0-100.0); MEAN PLATELET VOLUME 8.9 fL (7.4-11.0); MONOCYTES # (AUTO) 0.4 x10^3/uL (0.3-0.8); MONOCYTES % (AUTO) 4.5 % (0.0-13.0); NEUTROPHILS # (AUTO) 7.7 x10^3/uL (2.2-4.8); NEUTROPHILS % (AUTO) 83.7 % (42.0-75.0); PLATELET COUNT 69 X10^3/uL (150.0-450.0); RED BLOOD COUNT 3.62 X10^6/uL (3.5-5.4); RED CELL DISTRIBUTION WIDTH 13.5 % (11.6-16.5); WHITE BLOOD COUNT 9.2 X10^3/uL (3.6-10.0)
[2020-11-30 06:43] LABS: ALANINE AMINOTRANSFERASE 120 Units/L (12-78); ALBUMIN 2.1 g/dL (3.4-5.0); ALKALINE PHOSPHATASE 90 Units/L (46-116); ASPARTATE AMINO TRANSFERASE 70 Units/L (15-37); BLOOD UREA NITROGEN 9 mg/dL (7-18); CALCIUM 7.9 mg/dL (8.5-10.1); CARBON DIOXIDE 28.6 mmol/L (21-32); CHLORIDE 100 mmol/L (98-107); COR CA(FOR HYPOALB) 9.4 mg/dL (8.5-10.1); CREATININE 0.45 mg/dL (0.55-1.02); SODIUM 137 mmol/L (136-145); TOTAL PROTEIN 5.7 g/dL (6.4-8.2); eGFR NON BLACK RACES > 60 (>60)
[2020-11-30] MEDS ORDERED: NS 1/2 1000 ML IV 1,000 ML IV ONE (08:11)
[2020-11-30] MEDS: BROVANA IN SCH ×2 (08:25→21:07)
[2020-11-30] MEDS: PULMICORT NEB TX 0.5 MG NEB SCH ×2 (08:25→21:07)
[2020-11-30] MEDS: NS 1/2 1000 ML IV 1,000 ML IV SCH ×2 (08:25→21:22)
[2020-11-30] MEDS: AVELOX TAB 400 MG PO SCH (08:28)
[2020-11-30] MEDS: PEPCID TAB 40 MG PO SCH ×2 (08:30→21:23)
[2020-11-30] MEDS: VITAMIN D3 125 mcg (5,000 UNITS) PO SCH (08:30)
[2020-11-30] MEDS: VITAMIN A PO SCH (08:30)
[2020-11-30] MEDS: VITAMIN C PO SCH ×2 (08:31→21:23)
[2020-11-30] MEDS: ZINC SULFATE PO SCH ×2 (08:31→21:25)
[2020-11-30] MEDS: VSL#3 PO SCH ×2 (08:32→21:24)
[2020-11-30] MEDS: DIFLUCAN PO SCH (08:32)
[2020-11-30] MEDS: LIPITOR TAB 80 MG PO SCH (08:33)
[2020-11-30] MEDS: COZAAR PO SCH (08:33)
[2020-11-30] MEDS: CALAN SR 120 MG PO SCH (08:33)
[2020-11-30] MEDS: PREDNISONE TAB 20 MG PO SCH (08:34)
[2020-11-30] MEDS: ELIQUIS PO SCH ×2 (08:34→21:19)
[2020-11-30] MEDS: MAGIC MOUTHWASH MT SCH ×4 (08:34→21:22)
[2020-11-30] MEDS: SYNTHROID 25 mcg TAB PO SCH (08:34)
[2020-11-30] MEDS: GLUCOPHAGE XR 24-HR PO SCH ×2 (09:48→21:21)
[2020-11-30] MEDS: ACTOS PO SCH (09:48)
[2020-11-30] MEDS: K-DUR TAB 20 MEQ PO PRN (10:23)
[2020-11-30] MEDS: MELATONIN PO SCH (21:22)
[2020-12-01] MEDS ORDERED: NS 1/2 1000 ML IV 1,000 ML IV ONE ×2 (00:42→15:40)
[2020-12-01] MEDS: NS 1/2 1000 ML IV 1,000 ML IV SCH ×2 (02:40→15:39)
[2020-12-01] MEDS: CYTOTEC PO SCH ×3 (05:25→21:10)
[2020-12-01 06:01] LABS: BASOPHILS # (AUTO) 0.2 X10^3/uL (0.0-0.1); BASOPHILS % (AUTO) 1.9 % (0.2-1.0); EOSINOPHILS # (AUTO) 0.2 x10^3/uL (0.0-0.2); EOSINOPHILS % (AUTO) 2.6 % (0.9-2.9); HEMATOCRIT 36.4 % (36.0-47.0); HEMOGLOBIN 12.8 g/dL (12.0-16.0); LYMPHOCYTES # (AUTO) 0.7 X10^3/uL (1.3-2.9); LYMPHOCYTES % (AUTO) 7.2 % (21.0-51.0); MEAN CORPUSCULAR HEMOGLOBIN 34.7 pg (27.0-34.0); MEAN CORPUSCULAR HGB CONC 35.3 g/dL (33.0-35.0); MEAN CORPUSCULAR VOLUME 98.4 fL (80.0-100.0); MEAN PLATELET VOLUME 8.9 fL (7.4-11.0); MONOCYTES # (AUTO) 0.4 x10^3/uL (0.3-0.8); MONOCYTES % (AUTO) 3.8 % (0.0-13.0); NEUTROPHILS # (AUTO) 7.8 x10^3/uL (2.2-4.8); NEUTROPHILS % (AUTO) 84.5 % (42.0-75.0); PLATELET COUNT 72 X10^3/uL (150.0-450.0); RED CELL DISTRIBUTION WIDTH 13.7 % (11.6-16.5); WHITE BLOOD COUNT 9.2 X10^3/uL (3.6-10.0)
[2020-12-01 06:11] LABS: ALANINE AMINOTRANSFERASE 113 Units/L (12-78); ALBUMIN 2.1 g/dL (3.4-5.0); ALKALINE PHOSPHATASE 87 Units/L (46-116); ASPARTATE AMINO TRANSFERASE 64 Units/L (15-37); BLOOD UREA NITROGEN 8 mg/dL (7-18); CALCIUM 7.9 mg/dL (8.5-10.1); CARBON DIOXIDE 30.1 mmol/L (21-32); CHLORIDE 97 mmol/L (98-107); COR CA(FOR HYPOALB) 9.4 mg/dL (8.5-10.1); CREATININE 0.44 mg/dL (0.55-1.02); SODIUM 134 mmol/L (136-145); TOTAL PROTEIN 5.8 g/dL (6.4-8.2); eGFR NON BLACK RACES > 60 (>60)
[2020-12-01 07:06] LABS: BAND NEUTROPHILS % 1 % (0-10); PLATELET MORPHOLOGY COMMENT NORMAL (NORMAL)
[2020-12-01] MEDS: PULMICORT NEB TX 0.5 MG NEB SCH ×2 (08:30→20:45)
[2020-12-01] MEDS: BROVANA IN SCH ×2 (08:30→20:45)
[2020-12-01] MEDS: ACTOS PO SCH (08:33)
[2020-12-01] MEDS: AVELOX TAB 400 MG PO SCH (08:33)
[2020-12-01] MEDS: CALAN SR 120 MG PO SCH (08:34)
[2020-12-01] MEDS: COZAAR PO SCH (08:35)
[2020-12-01] MEDS: GLUCOPHAGE XR 24-HR PO SCH ×2 (08:36→21:09)
[2020-12-01] MEDS: DIFLUCAN PO SCH (08:37)
[2020-12-01] MEDS: ZINC SULFATE PO SCH ×2 (08:37→21:10)
[2020-12-01] MEDS: VITAMIN D3 125 mcg (5,000 UNITS) PO SCH (08:37)
[2020-12-01] MEDS: VITAMIN C PO SCH ×2 (08:38→21:10)
[2020-12-01] MEDS: VSL#3 PO SCH ×2 (08:40→21:10)
[2020-12-01] MEDS: SYNTHROID 25 mcg TAB PO SCH (08:40)
[2020-12-01] MEDS: VITAMIN A PO SCH (08:41)
[2020-12-01] MEDS: LIPITOR TAB 80 MG PO SCH (08:41)
[2020-12-01] MEDS: PREDNISONE TAB 20 MG PO SCH (08:41)
[2020-12-01] MEDS: PEPCID TAB 40 MG PO SCH ×2 (08:42→21:10)
[2020-12-01] MEDS: ELIQUIS PO SCH ×2 (08:42→21:09)
[2020-12-01] MEDS: MAGIC MOUTHWASH MT SCH ×4 (08:42→21:09)
[2020-12-01] MEDS: VORICONAZOLE IV SCH (15:17)
[2020-12-01] MEDS: NS IV SCH (15:17)
[2020-12-01] MEDS: MELATONIN PO SCH (21:09)
[2020-12-01] MEDS: VISTARIL PO PRN (21:14)
[2020-12-02] MEDS: NS 1/2 1000 ML IV 1,000 ML IV SCH ×4 (01:21→22:10)
[2020-12-02] MEDS ORDERED: NS 1/2 1000 ML IV 1,000 ML IV ONE ×2 (05:24→22:04)
[2020-12-02 05:31] LABS: BASOPHILS % (AUTO) 0.5 % (0.2-1.0); EOSINOPHILS # (AUTO) 0.2 x10^3/uL (0.0-0.2); EOSINOPHILS % (AUTO) 3.1 % (0.9-2.9); HEMATOCRIT 34.6 % (36.0-47.0); HEMOGLOBIN 12.2 g/dL (12.0-16.0); LYMPHOCYTES # (AUTO) 0.9 X10^3/uL (1.3-2.9); LYMPHOCYTES % (AUTO) 12.9 % (21.0-51.0); MEAN CORPUSCULAR HEMOGLOBIN 34.8 pg (27.0-34.0); MEAN CORPUSCULAR HGB CONC 35.3 g/dL (33.0-35.0); MEAN CORPUSCULAR VOLUME 98.6 fL (80.0-100.0); MEAN PLATELET VOLUME 8.6 fL (7.4-11.0); MONOCYTES # (AUTO) 0.4 x10^3/uL (0.3-0.8); MONOCYTES % (AUTO) 5.4 % (0.0-13.0); NEUTROPHILS # (AUTO) 5.7 x10^3/uL (2.2-4.8); NEUTROPHILS % (AUTO) 78.1 % (42.0-75.0); PLATELET COUNT 68 X10^3/uL (150.0-450.0); RED BLOOD COUNT 3.51 X10^6/uL (3.5-5.4); RED CELL DISTRIBUTION WIDTH 13.9 % (11.6-16.5); WHITE BLOOD COUNT 7.3 X10^3/uL (3.6-10.0)
[2020-12-02 05:40] LABS: ALANINE AMINOTRANSFERASE 103 Units/L (12-78); ALBUMIN 2.1 g/dL (3.4-5.0); ALKALINE PHOSPHATASE 80 Units/L (46-116); ASPARTATE AMINO TRANSFERASE 63 Units/L (15-37); BLOOD UREA NITROGEN 5 mg/dL (7-18); CALCIUM 7.9 mg/dL (8.5-10.1); CARBON DIOXIDE 32.2 mmol/L (21-32); CHLORIDE 99 mmol/L (98-107); COR CA(FOR HYPOALB) 9.4 mg/dL (8.5-10.1); CREATININE 0.42 mg/dL (0.55-1.02); SODIUM 137 mmol/L (136-145); TOTAL PROTEIN 5.6 g/dL (6.4-8.2); eGFR NON BLACK RACES > 60 (>60)
[2020-12-02] MEDS: CYTOTEC PO SCH ×3 (05:47→21:22)
[2020-12-02] MEDS: K-DUR TAB 20 MEQ PO PRN (06:02)
--- NOTE | 2020-12-02 07:25 | RAD ---
HISTORYCOVID-19STUDYCHEST x-ray, 1 VIEWCOMPARISONX-ray 11/29/2020FINDINGSBilateral lung infiltrates are similar to prior study. Heart is normal in size. No pneumothorax or pleural effusion is seen.IMPRESSIONAppearance of the chest is unchanged.Electronically signed by: Martinez Verduzco (Dec 02, 2020 07:23:44)
[2020-12-02] MEDS: BROVANA IN SCH ×2 (08:25→20:01)
[2020-12-02] MEDS: PULMICORT NEB TX 0.5 MG NEB SCH ×2 (08:25→20:01)
[2020-12-02] MEDS: ACTOS PO SCH (09:54)
[2020-12-02] MEDS: VITAMIN D3 125 mcg (5,000 UNITS) PO SCH (09:55)
[2020-12-02] MEDS: CALAN SR 120 MG PO SCH (09:55)
[2020-12-02] MEDS: MAGIC MOUTHWASH MT SCH ×4 (09:55→20:43)
[2020-12-02] MEDS: LIPITOR TAB 80 MG PO SCH (09:55)
[2020-12-02] MEDS: ELIQUIS PO SCH ×2 (09:55→20:42)
[2020-12-02] MEDS: VSL#3 PO SCH ×2 (09:56→20:49)
[2020-12-02] MEDS: PREDNISONE TAB 20 MG PO SCH (09:56)
[2020-12-02] MEDS: COZAAR PO SCH (09:56)
[2020-12-02] MEDS: SYNTHROID 25 mcg TAB PO SCH (09:56)
[2020-12-02] MEDS: VITAMIN A PO SCH (09:56)
[2020-12-02] MEDS: VITAMIN C PO SCH ×2 (09:56→20:44)
[2020-12-02] MEDS: ZINC SULFATE PO SCH ×2 (09:57→20:46)
[2020-12-02] MEDS: PEPCID TAB 40 MG PO SCH ×2 (09:57→20:44)
[2020-12-02] MEDS: VORICONAZOLE IV SCH (09:58)
[2020-12-02] MEDS: NS IV SCH (09:58)
[2020-12-02] MEDS ORDERED: MAGNESIUM SULFATE 1 GRAM/100 mL PREMIX 1 G/100 ML BAG IV ONE (16:17)
[2020-12-02] MEDS: MAGNESIUM SULFATE 1 GRAM/100 mL PREMIX 1 GM/100 ML BAG IV PRN ×2 (16:40→17:55)
[2020-12-02] MEDS: BUTT CREAM (COMPOUND) TOP PRN (17:54)
[2020-12-02] MEDS: MELATONIN PO SCH (20:43)
[2020-12-02] MEDS: GLUCOPHAGE XR 24-HR PO SCH (20:43)
[2020-12-02] MEDS: VORICONAZOLE 400 MG in NS 100 ML IV 100 ML IV SCH (20:45)
[2020-12-02] MEDS: VISTARIL PO PRN (20:47)
[2020-12-03 05:00] LABS: ABG BASE EXCESS 8.9 mmol/L (-2.0-2.0)
[2020-12-03 05:01] LABS: ABG ALLEN TEST POS; ABG HCO3 33.5 mmol/L (22-26)
[2020-12-03] MEDS: NS 1/2 1000 ML IV 1,000 ML IV SCH ×2 (05:24→14:18)
[2020-12-03 05:40] LABS: BASOPHILS % (AUTO) 0.4 % (0.2-1.0); EOSINOPHILS # (AUTO) 0.2 x10^3/uL (0.0-0.2); EOSINOPHILS % (AUTO) 2.8 % (0.9-2.9); HEMATOCRIT 34.6 % (36.0-47.0); HEMOGLOBIN 12.2 g/dL (12.0-16.0); LYMPHOCYTES # (AUTO) 0.9 X10^3/uL (1.3-2.9); LYMPHOCYTES % (AUTO) 11.7 % (21.0-51.0); MEAN CORPUSCULAR HEMOGLOBIN 34.7 pg (27.0-34.0); MEAN CORPUSCULAR HGB CONC 35.2 g/dL (33.0-35.0); MEAN CORPUSCULAR VOLUME 98.6 fL (80.0-100.0); MEAN PLATELET VOLUME 8.8 fL (7.4-11.0); MONOCYTES # (AUTO) 0.4 x10^3/uL (0.3-0.8); MONOCYTES % (AUTO) 4.9 % (0.0-13.0); NEUTROPHILS % (AUTO) 80.2 % (42.0-75.0); PLATELET COUNT 73 X10^3/uL (150.0-450.0); RED BLOOD COUNT 3.51 X10^6/uL (3.5-5.4); RED CELL DISTRIBUTION WIDTH 14.7 % (11.6-16.5); WHITE BLOOD COUNT 7.5 X10^3/uL (3.6-10.0)
[2020-12-03] MEDS: CYTOTEC PO SCH ×3 (05:51→22:00)
[2020-12-03 05:57] LABS: ALANINE AMINOTRANSFERASE 102 Units/L (12-78); ALBUMIN 2.3 g/dL (3.4-5.0); ALKALINE PHOSPHATASE 83 Units/L (46-116); ASPARTATE AMINO TRANSFERASE 64 Units/L (15-37); BLOOD UREA NITROGEN 4 mg/dL (7-18); CALCIUM 8.1 mg/dL (8.5-10.1); CARBON DIOXIDE 34.6 mmol/L (21-32); CHLORIDE 100 mmol/L (98-107); COR CA(FOR HYPOALB) 9.5 mg/dL (8.5-10.1); CREATININE 0.38 mg/dL (0.55-1.02); SODIUM 138 mmol/L (136-145); TOTAL PROTEIN 5.8 g/dL (6.4-8.2); eGFR NON BLACK RACES > 60 (>60)
[2020-12-03] MEDS: ACTOS PO SCH (08:25)
[2020-12-03] MEDS: ELIQUIS PO SCH ×2 (08:26→20:27)
[2020-12-03] MEDS: GLUCOPHAGE XR 24-HR PO SCH ×2 (08:26→20:27)
[2020-12-03] MEDS: LIPITOR TAB 80 MG PO SCH (08:26)
[2020-12-03] MEDS: COZAAR PO SCH (08:26)
[2020-12-03] MEDS: CALAN SR 120 MG PO SCH (08:26)
[2020-12-03] MEDS: PEPCID TAB 40 MG PO SCH ×2 (08:27→20:28)
[2020-12-03] MEDS: VITAMIN C PO SCH ×2 (08:27→20:29)
[2020-12-03] MEDS: VITAMIN A PO SCH (08:27)
[2020-12-03] MEDS: MAGIC MOUTHWASH MT SCH ×4 (08:27→20:28)
[2020-12-03] MEDS: SYNTHROID 25 mcg TAB PO SCH (08:27)
[2020-12-03] MEDS: VITAMIN D3 125 mcg (5,000 UNITS) PO SCH (08:27)
[2020-12-03] MEDS: PREDNISONE TAB 20 MG PO SCH (08:27)
[2020-12-03] MEDS: ZINC SULFATE PO SCH ×2 (08:28→20:30)
[2020-12-03] MEDS: VORICONAZOLE 400 MG in NS 100 ML IV 100 ML IV SCH ×2 (08:28→20:29)
[2020-12-03] MEDS: VSL#3 PO SCH ×2 (08:28→20:30)
--- NOTE | 2020-12-03 08:35 | RAD ---
HISTORYCOVID-19 pneumoniaSTUDYPortable AP [id number]/18/2021FINDINGSStable heart size and contour with no change in distribution of bilateral airspace disease, especially in the lower lobes. No additional consolidation, pneumothorax or pleural effusion is identified.IMPRESSIONNo change in appearance of bilateral pneumonia.Electronically signed by: MIGUEL MINAYA (Dec 03, 2020 08:33:29)
[2020-12-03] MEDS ORDERED: NS 1/2 1000 ML IV 1,000 ML IV ONE (09:05)
[2020-12-03] MEDS: BROVANA IN SCH ×2 (09:18→20:00)
[2020-12-03] MEDS: PULMICORT NEB TX 0.5 MG NEB SCH ×2 (09:18→20:00)
[2020-12-03] MEDS: K-DUR TAB 20 MEQ PO PRN (09:59)
[2020-12-03] MEDS ORDERED: PREDNISONE TAB 5 MG PO ONE (12:15)
[2020-12-03] MEDS: MELATONIN PO SCH (20:28)
[2020-12-03] MEDS: VISTARIL PO PRN (20:30)
[2020-12-04] MEDS ORDERED: NS 1/2 1000 ML IV 1,000 ML IV ONE ×2 (01:30→14:33)
[2020-12-04] MEDS: NS 1/2 1000 ML IV 1,000 ML IV SCH ×3 (01:43→15:12)
[2020-12-04 04:31] LABS: ABG BASE EXCESS 7.4 mmol/L (-2.0-2.0)
[2020-12-04 04:32] LABS: ABG ALLEN TEST POS; ABG HCO3 31.2 mmol/L (22-26)
--- NOTE | 2020-12-04 05:47 | RAD ---
PROCEDURE: Chest X-ray 1 View .HISTORY: COVID PNEUMONIA .TECHNIQUE: AP view .COMPARISON: 12/03/2020.TECHNICAL QUALITY: Satisfactory .FINDINGS:Unremarkable cardio mediastinal silhouette.Normal central vascularity.Mild bibasilar consolidation similar to slightly improved compared to previous study. No pleural fluid or pneumothorax.IMPRESSION:Unchanged to mildly improved pneumonia lung bases.Electronically signed by: Jan Logan (Dec 04, 2020 05:45:31)
[2020-12-04] MEDS: CYTOTEC PO SCH ×3 (06:38→21:01)
[2020-12-04 06:48] LABS: BASOPHILS % (AUTO) 0.5 % (0.2-1.0); EOSINOPHILS # (AUTO) 0.2 x10^3/uL (0.0-0.2); EOSINOPHILS % (AUTO) 2.6 % (0.9-2.9); HEMATOCRIT 33.6 % (36.0-47.0); HEMOGLOBIN 11.8 g/dL (12.0-16.0); LYMPHOCYTES # (AUTO) 0.9 X10^3/uL (1.3-2.9); LYMPHOCYTES % (AUTO) 13.3 % (21.0-51.0); MEAN CORPUSCULAR HEMOGLOBIN 34.8 pg (27.0-34.0); MEAN CORPUSCULAR HGB CONC 35.1 g/dL (33.0-35.0); MEAN CORPUSCULAR VOLUME 99.3 fL (80.0-100.0); MEAN PLATELET VOLUME 8.9 fL (7.4-11.0); MONOCYTES # (AUTO) 0.4 x10^3/uL (0.3-0.8); MONOCYTES % (AUTO) 6.1 % (0.0-13.0); NEUTROPHILS # (AUTO) 5.5 x10^3/uL (2.2-4.8); NEUTROPHILS % (AUTO) 77.5 % (42.0-75.0); PLATELET COUNT 89 X10^3/uL (150.0-450.0); RED BLOOD COUNT 3.38 X10^6/uL (3.5-5.4); RED CELL DISTRIBUTION WIDTH 14.8 % (11.6-16.5); WHITE BLOOD COUNT 7.1 X10^3/uL (3.6-10.0)
[2020-12-04 06:59] LABS: ALANINE AMINOTRANSFERASE 95 Units/L (12-78); ALBUMIN 2.2 g/dL (3.4-5.0); ALKALINE PHOSPHATASE 82 Units/L (46-116); ASPARTATE AMINO TRANSFERASE 62 Units/L (15-37); BLOOD UREA NITROGEN 5 mg/dL (7-18); CARBON DIOXIDE 32.6 mmol/L (21-32); CHLORIDE 99 mmol/L (98-107); COR CA(FOR HYPOALB) 9.4 mg/dL (8.5-10.1); SODIUM 137 mmol/L (136-145); TOTAL PROTEIN 5.8 g/dL (6.4-8.2); eGFR NON BLACK RACES > 60 (>60)
[2020-12-04] MEDS: BROVANA IN SCH ×2 (09:21→21:25)
[2020-12-04] MEDS: PULMICORT NEB TX 0.5 MG NEB SCH ×2 (09:21→21:25)
[2020-12-04] MEDS: ACTOS PO SCH (09:50)
[2020-12-04] MEDS: PEPCID TAB 40 MG PO SCH ×2 (09:51→20:58)
[2020-12-04] MEDS: COZAAR PO SCH (09:51)
[2020-12-04] MEDS: GLUCOPHAGE XR 24-HR PO SCH ×2 (09:51→20:57)
[2020-12-04] MEDS: MAGIC MOUTHWASH MT SCH ×4 (09:51→20:57)
[2020-12-04] MEDS: PREDNISONE TAB 20 MG PO SCH (09:51)
[2020-12-04] MEDS: CALAN SR 120 MG PO SCH (09:51)
[2020-12-04] MEDS: ELIQUIS PO SCH ×2 (09:51→20:56)
[2020-12-04] MEDS: LIPITOR TAB 80 MG PO SCH (09:51)
[2020-12-04] MEDS: VSL#3 PO SCH ×2 (09:52→20:59)
[2020-12-04] MEDS: ZINC SULFATE PO SCH ×2 (09:52→21:00)
[2020-12-04] MEDS: VITAMIN A PO SCH (09:52)
[2020-12-04] MEDS: VORICONAZOLE 400 MG in NS 100 ML IV 100 ML IV SCH ×2 (09:52→20:59)
[2020-12-04] MEDS: SYNTHROID 25 mcg TAB PO SCH (09:52)
[2020-12-04] MEDS: VITAMIN D3 125 mcg (5,000 UNITS) PO SCH (09:52)
[2020-12-04] MEDS: VITAMIN C PO SCH ×2 (09:52→20:58)
[2020-12-04] MEDS: K-DUR TAB 20 MEQ PO PRN (09:53)
[2020-12-04] MEDS ORDERED: PATIENT'S HOME MEDICATION MT PRN (10:52)
[2020-12-04] MEDS: VISTARIL PO PRN ×2 (12:39→21:30)
[2020-12-04 12:51] LABS: ABG BASE EXCESS 6.9 mmol/L (-2.0-2.0)
[2020-12-04 12:53] LABS: ABG ALLEN TEST POS; ABG HCO3 30.3 mmol/L (22-26)
[2020-12-04] MEDS: MELATONIN PO SCH (20:57)
[2020-12-05] MEDS ORDERED: NS 1/2 1000 ML IV 1,000 ML IV ONE (01:30)
[2020-12-05] MEDS: VISTARIL PO PRN (04:20)
[2020-12-05 05:07] LABS: ABG ALLEN TEST POS; ABG HCO3 30.2 mmol/L (22-26)
[2020-12-05 06:16] LABS: BASOPHILS % (AUTO) 0.4 % (0.2-1.0); EOSINOPHILS # (AUTO) 0.2 x10^3/uL (0.0-0.2); EOSINOPHILS % (AUTO) 2.5 % (0.9-2.9); HEMATOCRIT 32.7 % (36.0-47.0); HEMOGLOBIN 11.5 g/dL (12.0-16.0); LYMPHOCYTES % (AUTO) 14.3 % (21.0-51.0); MEAN CORPUSCULAR HGB CONC 35.2 g/dL (33.0-35.0); MEAN CORPUSCULAR VOLUME 99.5 fL (80.0-100.0); MEAN PLATELET VOLUME 8.9 fL (7.4-11.0); MONOCYTES # (AUTO) 0.5 x10^3/uL (0.3-0.8); MONOCYTES % (AUTO) 6.8 % (0.0-13.0); NEUTROPHILS # (AUTO) 5.2 x10^3/uL (2.2-4.8); PLATELET COUNT 108 X10^3/uL (150.0-450.0); RED BLOOD COUNT 3.29 X10^6/uL (3.5-5.4); RED CELL DISTRIBUTION WIDTH 14.8 % (11.6-16.5); WHITE BLOOD COUNT 6.8 X10^3/uL (3.6-10.0)
[2020-12-05 06:39] LABS: ALANINE AMINOTRANSFERASE 86 Units/L (12-78); ALBUMIN 2.1 g/dL (3.4-5.0); ALKALINE PHOSPHATASE 81 Units/L (46-116); ASPARTATE AMINO TRANSFERASE 70 Units/L (15-37); BLOOD UREA NITROGEN 7 mg/dL (7-18); CALCIUM 8.1 mg/dL (8.5-10.1); CARBON DIOXIDE 31.7 mmol/L (21-32); CHLORIDE 101 mmol/L (98-107); COR CA(FOR HYPOALB) 9.6 mg/dL (8.5-10.1); CREATININE 0.48 mg/dL (0.55-1.02); SODIUM 137 mmol/L (136-145); TOTAL PROTEIN 5.7 g/dL (6.4-8.2); eGFR NON BLACK RACES > 60 (>60)
--- NOTE | 2020-12-05 06:44 | RAD ---
HISTORYFollow-up COVID-19STUDYChest AP [id number]/20/21FINDINGSHeart size is normal. Diffuse bilateral interstitial, ground-glass, and some bibasilar alveolar infiltrates are unchanged. No pleural effusion or pneumothorax is identified. Bony thorax is unremarkable.IMPRESSIONNo change diffuse bilateral interstitial, ground-glass, and bibasilar alveolar infiltratesElectronically signed by: HERRERA WEBER (Dec 05, 2020 06:42:59)
[2020-12-05] MEDS: NS 1/2 1000 ML IV 1,000 ML IV SCH ×2 (06:55→19:59)
[2020-12-05] MEDS: CYTOTEC PO SCH ×3 (06:56→21:01)
[2020-12-05] MEDS: ACTOS PO SCH (08:46)
[2020-12-05] MEDS: GLUCOPHAGE XR 24-HR PO SCH ×2 (08:46→20:12)
[2020-12-05] MEDS: PULMICORT NEB TX 0.5 MG NEB SCH ×2 (09:10→21:00)
[2020-12-05] MEDS: BROVANA IN SCH ×2 (09:10→21:00)
[2020-12-05] MEDS: COZAAR PO SCH (09:37)
[2020-12-05] MEDS: CALAN SR 120 MG PO SCH (09:37)
[2020-12-05] MEDS: VITAMIN C PO SCH ×2 (09:38→20:13)
[2020-12-05] MEDS: PEPCID TAB 40 MG PO SCH ×2 (09:38→20:13)
[2020-12-05] MEDS: ELIQUIS PO SCH ×2 (09:38→20:12)
[2020-12-05] MEDS: PREDNISONE TAB 20 MG PO SCH (09:38)
[2020-12-05] MEDS: LIPITOR TAB 80 MG PO SCH (09:38)
[2020-12-05] MEDS: SYNTHROID 25 mcg TAB PO SCH (09:38)
[2020-12-05] MEDS: VITAMIN A PO SCH (09:38)
[2020-12-05] MEDS: MAGIC MOUTHWASH MT SCH ×4 (09:38→20:12)
[2020-12-05] MEDS: VSL#3 PO SCH ×2 (09:39→20:19)
[2020-12-05] MEDS: VITAMIN D3 125 mcg (5,000 UNITS) PO SCH (09:39)
[2020-12-05] MEDS: ZINC SULFATE PO SCH ×2 (09:39→20:19)
[2020-12-05] MEDS: KLOR-CON PO PRN (09:39)
[2020-12-05] MEDS: VORICONAZOLE 400 MG in NS 100 ML IV 100 ML IV SCH ×2 (11:29→20:18)
[2020-12-05] MEDS: MELATONIN PO SCH (20:13)
[2020-12-06] MEDS ORDERED: NS 1/2 1000 ML IV 1,000 ML IV ONE (00:17)
[2020-12-06] MEDS: NS 1/2 1000 ML IV 1,000 ML IV SCH ×3 (01:17→21:36)
[2020-12-06 04:59] LABS: ABG BASE EXCESS 9.1 mmol/L (-2.0-2.0)
[2020-12-06 05:00] LABS: ABG ALLEN TEST POS; ABG HCO3 33.5 mmol/L (22-26)
[2020-12-06 05:14] LABS: BASOPHILS % (AUTO) 0.6 % (0.2-1.0); EOSINOPHILS # (AUTO) 0.2 x10^3/uL (0.0-0.2); EOSINOPHILS % (AUTO) 2.8 % (0.9-2.9); HEMATOCRIT 34.7 % (36.0-47.0); HEMOGLOBIN 12.2 g/dL (12.0-16.0); LYMPHOCYTES # (AUTO) 1.2 X10^3/uL (1.3-2.9); LYMPHOCYTES % (AUTO) 17.3 % (21.0-51.0); MEAN CORPUSCULAR HEMOGLOBIN 34.9 pg (27.0-34.0); MEAN CORPUSCULAR HGB CONC 35.1 g/dL (33.0-35.0); MEAN CORPUSCULAR VOLUME 99.4 fL (80.0-100.0); MEAN PLATELET VOLUME 8.7 fL (7.4-11.0); MONOCYTES # (AUTO) 0.5 x10^3/uL (0.3-0.8); MONOCYTES % (AUTO) 6.7 % (0.0-13.0); NEUTROPHILS # (AUTO) 5.2 x10^3/uL (2.2-4.8); NEUTROPHILS % (AUTO) 72.6 % (42.0-75.0); PLATELET COUNT 155 X10^3/uL (150.0-450.0); RED BLOOD COUNT 3.49 X10^6/uL (3.5-5.4); RED CELL DISTRIBUTION WIDTH 15.3 % (11.6-16.5); WHITE BLOOD COUNT 7.2 X10^3/uL (3.6-10.0)
[2020-12-06 05:28] LABS: ALANINE AMINOTRANSFERASE 86 Units/L (12-78); ALBUMIN 2.3 g/dL (3.4-5.0); ALKALINE PHOSPHATASE 89 Units/L (46-116); ASPARTATE AMINO TRANSFERASE 74 Units/L (15-37); BLOOD UREA NITROGEN 5 mg/dL (7-18); CALCIUM 8.3 mg/dL (8.5-10.1); CARBON DIOXIDE 29.3 mmol/L (21-32); CHLORIDE 100 mmol/L (98-107); COR CA(FOR HYPOALB) 9.7 mg/dL (8.5-10.1); CREATININE 0.41 mg/dL (0.55-1.02); SODIUM 138 mmol/L (136-145); eGFR NON BLACK RACES > 60 (>60)
--- NOTE | 2020-12-06 06:05 | RAD ---
HISTORYFollow-up COVID-19STUDYChest AP [id number]/21/2021FINDINGSHeart size remains normal. Bernad[place] are normal. Bilateral interstitia l, ground-glass and some bibasilar alveolar infiltrates are again identified and are unchanged. No pl eural effusion or pneumothorax is identified. Bony thorax is unremarkable.IMPRESSIONNo change diffuse bilateral interstitial, ground-glass and bibasilar alveolar infiltratesElectronically signed by: ILEANA WEBER (Dec 06, 2020 06:03:55)
[2020-12-06] MEDS: CYTOTEC PO SCH ×3 (06:11→21:37)
[2020-12-06] MEDS: BROVANA IN SCH ×2 (08:20→20:48)
[2020-12-06] MEDS: PULMICORT NEB TX 0.5 MG NEB SCH ×2 (08:20→20:48)
[2020-12-06] MEDS: ACTOS PO SCH (09:16)
[2020-12-06] MEDS: MAGIC MOUTHWASH MT SCH ×4 (09:16→20:05)
[2020-12-06] MEDS: ELIQUIS PO SCH ×2 (09:16→20:04)
[2020-12-06] MEDS: LIPITOR TAB 80 MG PO SCH (09:16)
[2020-12-06] MEDS: PEPCID TAB 40 MG PO SCH ×2 (09:16→20:04)
[2020-12-06] MEDS: GLUCOPHAGE XR 24-HR PO SCH ×2 (09:16→20:04)
[2020-12-06] MEDS: VITAMIN D3 125 mcg (5,000 UNITS) PO SCH (09:17)
[2020-12-06] MEDS: SYNTHROID 25 mcg TAB PO SCH (09:17)
[2020-12-06] MEDS: VITAMIN C PO SCH ×2 (09:17→20:05)
[2020-12-06] MEDS: VITAMIN A PO SCH (09:17)
[2020-12-06] MEDS: VORICONAZOLE 400 MG in NS 100 ML IV 100 ML IV SCH ×2 (09:17→20:04)
[2020-12-06] MEDS: VSL#3 PO SCH ×2 (09:17→20:04)
[2020-12-06] MEDS: K-DUR TAB 20 MEQ PO PRN (09:19)
[2020-12-06] MEDS: CORTEF PO SCH ×2 (12:15→18:07)
[2020-12-06] MEDS ORDERED: CORTEF ONE (12:15)
[2020-12-06] MEDS: MELATONIN PO SCH (20:05)
[2020-12-07] MEDS ORDERED: NS 1/2 1000 ML IV 1,000 ML IV ONE (05:21)
[2020-12-07] MEDS: CYTOTEC PO SCH ×3 (05:47→22:00)
[2020-12-07] MEDS: NS 1/2 1000 ML IV 1,000 ML IV SCH ×2 (05:48→09:01)
[2020-12-07 06:09] LABS: ALANINE AMINOTRANSFERASE 81 Units/L (12-78); ALBUMIN 2.2 g/dL (3.4-5.0); ALKALINE PHOSPHATASE 87 Units/L (46-116); ASPARTATE AMINO TRANSFERASE 70 Units/L (15-37); BLOOD UREA NITROGEN 9 mg/dL (7-18); CALCIUM 8.5 mg/dL (8.5-10.1); CARBON DIOXIDE 32.6 mmol/L (21-32); CHLORIDE 99 mmol/L (98-107); COR CA(FOR HYPOALB) 9.9 mg/dL (8.5-10.1); SODIUM 137 mmol/L (136-145); TOTAL PROTEIN 5.9 g/dL (6.4-8.2); eGFR NON BLACK RACES > 60 (>60)
[2020-12-07 06:30] LABS: BASOPHILS % (AUTO) 0.5 % (0.2-1.0); EOSINOPHILS # (AUTO) 0.2 x10^3/uL (0.0-0.2); EOSINOPHILS % (AUTO) 3.2 % (0.9-2.9); HEMOGLOBIN 11.6 g/dL (12.0-16.0); LYMPHOCYTES # (AUTO) 1.1 X10^3/uL (1.3-2.9); LYMPHOCYTES % (AUTO) 17.8 % (21.0-51.0); MEAN CORPUSCULAR HEMOGLOBIN 35.1 pg (27.0-34.0); MEAN CORPUSCULAR HGB CONC 35.2 g/dL (33.0-35.0); MEAN CORPUSCULAR VOLUME 99.6 fL (80.0-100.0); MEAN PLATELET VOLUME 8.7 fL (7.4-11.0); MONOCYTES # (AUTO) 0.5 x10^3/uL (0.3-0.8); MONOCYTES % (AUTO) 7.6 % (0.0-13.0); NEUTROPHILS # (AUTO) 4.3 x10^3/uL (2.2-4.8); NEUTROPHILS % (AUTO) 70.9 % (42.0-75.0); PLATELET COUNT 166 X10^3/uL (150.0-450.0); RED BLOOD COUNT 3.32 X10^6/uL (3.5-5.4); RED CELL DISTRIBUTION WIDTH 15.8 % (11.6-16.5); WHITE BLOOD COUNT 6.1 X10^3/uL (3.6-10.0)
[2020-12-07] MEDS ORDERED: CORTEF ONE ×3 (08:42→16:45)
[2020-12-07] MEDS: CORTEF PO SCH ×3 (08:42→17:04)
[2020-12-07] MEDS: ELIQUIS PO SCH ×2 (08:59→20:17)
[2020-12-07] MEDS: LIPITOR TAB 80 MG PO SCH (09:00)
[2020-12-07] MEDS: MAGIC MOUTHWASH MT SCH ×4 (09:01→20:18)
[2020-12-07] MEDS: VITAMIN C PO SCH ×2 (09:02→20:17)
[2020-12-07] MEDS: SYNTHROID 25 mcg TAB PO SCH (09:02)
[2020-12-07] MEDS: PEPCID TAB 40 MG PO SCH ×2 (09:02→20:18)
[2020-12-07] MEDS: VSL#3 PO SCH ×2 (09:03→20:17)
[2020-12-07] MEDS: VITAMIN A PO SCH (09:05)
[2020-12-07] MEDS: VITAMIN D3 125 mcg (5,000 UNITS) PO SCH (09:05)
[2020-12-07] MEDS: VORICONAZOLE 400 MG in NS 100 ML IV 100 ML IV SCH ×2 (09:23→20:18)
[2020-12-07] MEDS: PULMICORT NEB TX 0.5 MG NEB SCH ×2 (09:27→21:25)
[2020-12-07] MEDS: BROVANA IN SCH ×2 (09:27→21:25)
[2020-12-07] MEDS: ACTOS PO SCH (10:13)
[2020-12-07] MEDS: GLUCOPHAGE XR 24-HR PO SCH ×2 (10:13→20:17)
[2020-12-07] MEDS: MELATONIN PO SCH (20:17)
[2020-12-07] MEDS: K-DUR TAB 20 MEQ PO PRN (20:17)
[2020-12-08] MEDS: NS 1/2 1000 ML IV 1,000 ML IV SCH ×2 (03:05→11:14)
[2020-12-08 05:00] LABS: BASOPHILS % (AUTO) 0.7 % (0.2-1.0); EOSINOPHILS # (AUTO) 0.1 x10^3/uL (0.0-0.2); EOSINOPHILS % (AUTO) 2.1 % (0.9-2.9); HEMATOCRIT 31.9 % (36.0-47.0); HEMOGLOBIN 11.3 g/dL (12.0-16.0); LYMPHOCYTES # (AUTO) 0.9 X10^3/uL (1.3-2.9); LYMPHOCYTES % (AUTO) 16.7 % (21.0-51.0); MEAN CORPUSCULAR HEMOGLOBIN 35.2 pg (27.0-34.0); MEAN CORPUSCULAR HGB CONC 35.5 g/dL (33.0-35.0); MEAN CORPUSCULAR VOLUME 99.2 fL (80.0-100.0); MEAN PLATELET VOLUME 8.4 fL (7.4-11.0); MONOCYTES # (AUTO) 0.4 x10^3/uL (0.3-0.8); MONOCYTES % (AUTO) 7.9 % (0.0-13.0); NEUTROPHILS # (AUTO) 4.1 x10^3/uL (2.2-4.8); NEUTROPHILS % (AUTO) 72.6 % (42.0-75.0); PLATELET COUNT 193 X10^3/uL (150.0-450.0); RED BLOOD COUNT 3.21 X10^6/uL (3.5-5.4); RED CELL DISTRIBUTION WIDTH 15.8 % (11.6-16.5); WHITE BLOOD COUNT 5.6 X10^3/uL (3.6-10.0)
[2020-12-08 05:17] LABS: ALANINE AMINOTRANSFERASE 70 Units/L (12-78); ALBUMIN 2.1 g/dL (3.4-5.0); ALKALINE PHOSPHATASE 83 Units/L (46-116); ASPARTATE AMINO TRANSFERASE 64 Units/L (15-37); BLOOD UREA NITROGEN 12 mg/dL (7-18); CALCIUM 8.2 mg/dL (8.5-10.1); CARBON DIOXIDE 33.9 mmol/L (21-32); CHLORIDE 100 mmol/L (98-107); COR CA(FOR HYPOALB) 9.7 mg/dL (8.5-10.1); CREATININE 0.51 mg/dL (0.55-1.02); SODIUM 137 mmol/L (136-145); TOTAL PROTEIN 5.8 g/dL (6.4-8.2); eGFR NON BLACK RACES > 60 (>60)
[2020-12-08] MEDS: CYTOTEC PO SCH (05:53)
[2020-12-08] MEDS ORDERED: CORTEF ONE ×2 (07:24→17:00)
[2020-12-08] MEDS: CORTEF PO SCH ×3 (08:12→17:05)
[2020-12-08] MEDS: ACTOS PO SCH (08:12)
[2020-12-08] MEDS: ELIQUIS PO SCH ×2 (08:12→21:00)
[2020-12-08] MEDS: PEPCID TAB 40 MG PO SCH ×2 (08:13→21:00)
[2020-12-08] MEDS: LIPITOR TAB 80 MG PO SCH (08:13)
[2020-12-08] MEDS: MAGIC MOUTHWASH MT SCH ×4 (08:13→21:00)
[2020-12-08] MEDS: GLUCOPHAGE XR 24-HR PO SCH ×2 (08:13→20:59)
[2020-12-08] MEDS: SYNTHROID 25 mcg TAB PO SCH (08:14)
[2020-12-08] MEDS: VITAMIN C PO SCH ×2 (08:19→21:00)
[2020-12-08] MEDS: VITAMIN A PO SCH (08:19)
[2020-12-08] MEDS: VORICONAZOLE 400 MG in NS 100 ML IV 100 ML IV SCH (08:19)
[2020-12-08] MEDS: VITAMIN D3 125 mcg (5,000 UNITS) PO SCH (08:19)
[2020-12-08] MEDS: VSL#3 PO SCH ×2 (08:19→20:59)
[2020-12-08] MEDS: BROVANA IN SCH ×2 (09:15→22:25)
[2020-12-08] MEDS: PULMICORT NEB TX 0.5 MG NEB SCH ×2 (09:15→22:20)
[2020-12-08] MEDS ORDERED: LEXAPRO ONE (10:43)
[2020-12-08] MEDS: KLONOPIN TAB 0.5 MG PO PRN (11:10)
[2020-12-08] MEDS: LEXAPRO PO SCH (11:14)
[2020-12-08] MEDS: MELATONIN PO SCH (20:59)
[2020-12-09] MEDS: NS 1/2 1000 ML IV 1,000 ML IV SCH ×3 (03:37→12:41)
[2020-12-09] MEDS ORDERED: NS 1/2 1000 ML IV 1,000 ML IV ONE (05:35)
[2020-12-09 05:54] LABS: ABG BASE EXCESS 9.8 mmol/L (-2.0-2.0)
[2020-12-09 05:55] LABS: ABG HCO3 35.4 mmol/L (22-26)
[2020-12-09 05:56] LABS: ABG ALLEN TEST POS
[2020-12-09 06:07] LABS: BASOPHILS % (AUTO) 0.5 % (0.2-1.0); EOSINOPHILS # (AUTO) 0.1 x10^3/uL (0.0-0.2); HEMATOCRIT 31.5 % (36.0-47.0); HEMOGLOBIN 11.2 g/dL (12.0-16.0); LYMPHOCYTES % (AUTO) 14.8 % (21.0-51.0); MEAN CORPUSCULAR HEMOGLOBIN 35.6 pg (27.0-34.0); MEAN CORPUSCULAR HGB CONC 35.5 g/dL (33.0-35.0); MEAN CORPUSCULAR VOLUME 100.3 fL (80.0-100.0); MEAN PLATELET VOLUME 8.6 fL (7.4-11.0); MONOCYTES # (AUTO) 0.6 x10^3/uL (0.3-0.8); MONOCYTES % (AUTO) 8.6 % (0.0-13.0); NEUTROPHILS # (AUTO) 4.8 x10^3/uL (2.2-4.8); NEUTROPHILS % (AUTO) 74.1 % (42.0-75.0); PLATELET COUNT 217 X10^3/uL (150.0-450.0); RED BLOOD COUNT 3.14 X10^6/uL (3.5-5.4); RED CELL DISTRIBUTION WIDTH 16.4 % (11.6-16.5); WHITE BLOOD COUNT 6.5 X10^3/uL (3.6-10.0)
[2020-12-09 06:17] LABS: ALANINE AMINOTRANSFERASE 64 Units/L (12-78); ALBUMIN 2.1 g/dL (3.4-5.0); ALKALINE PHOSPHATASE 84 Units/L (46-116); ASPARTATE AMINO TRANSFERASE 59 Units/L (15-37); BLOOD UREA NITROGEN 15 mg/dL (7-18); CALCIUM 8.5 mg/dL (8.5-10.1); CARBON DIOXIDE 32.3 mmol/L (21-32); CHLORIDE 99 mmol/L (98-107); CREATININE 0.48 mg/dL (0.55-1.02); SODIUM 136 mmol/L (136-145); TOTAL PROTEIN 5.9 g/dL (6.4-8.2); eGFR NON BLACK RACES > 60 (>60)
[2020-12-09] MEDS ORDERED: LEXAPRO ONE (07:05)
[2020-12-09] MEDS ORDERED: CORTEF ONE ×3 (07:06→16:11)
--- NOTE | 2020-12-09 08:01 | RAD ---
HISTORYSOB, COVID PNEUMONIASTUDYCHEST, 1 [id number]/22/2021FINDINGSDiffuse bilateral opacity in the lungs is nonspecific and could be pulmonary edema or pneumonia. But it had a more patchy distribution on the CT from 11/06/2020 indicating pneumonia.No pleural effusion or pneumothorax. But there is of slight improvement since 3 days agoHeart size is normal. Vascular calcifications are present compatible with atherosclerosis.Bones are unremarkable.EKG leads are noted.IMPRESSION1. Improved pneumoniaElectronically signed by: Valentín Pollard (Dec 09, 2020 07:59:14)
[2020-12-09] MEDS: ACTOS PO SCH (08:13)
[2020-12-09] MEDS: CORTEF PO SCH ×3 (08:13→17:34)
[2020-12-09] MEDS: ELIQUIS PO SCH ×2 (08:13→22:15)
[2020-12-09] MEDS: MAGIC MOUTHWASH MT SCH ×4 (08:14→22:26)
[2020-12-09] MEDS: GLUCOPHAGE XR 24-HR PO SCH ×2 (08:14→22:15)
[2020-12-09] MEDS: LEXAPRO PO SCH (08:14)
[2020-12-09] MEDS: PEPCID TAB 40 MG PO SCH ×2 (08:14→22:15)
[2020-12-09] MEDS: VSL#3 PO SCH ×2 (08:15→22:15)
[2020-12-09] MEDS: SYNTHROID 25 mcg TAB PO SCH (08:15)
[2020-12-09] MEDS: VITAMIN A PO SCH (08:15)
[2020-12-09] MEDS: VITAMIN D3 125 mcg (5,000 UNITS) PO SCH (08:15)
[2020-12-09] MEDS: VITAMIN C PO SCH ×2 (08:15→22:15)
[2020-12-09] MEDS: KLONOPIN TAB 0.5 MG PO PRN ×2 (08:15→22:20)
[2020-12-09] MEDS: PULMICORT NEB TX 0.5 MG NEB SCH ×2 (08:35→20:59)
[2020-12-09] MEDS: BROVANA IN SCH ×2 (08:35→20:59)
[2020-12-09] MEDS: NYSTATIN SUSP MT SCH ×4 (11:54→22:20)
[2020-12-09] MEDS: XYLOCAINE OINT 5% 1 APPLIC, ZOVIRAX 1 APPLIC TOP SCH ×4 (13:09→22:27)
--- NOTE | 2020-12-09 16:31 | PCM.PROG ---
Progress Note - Progress Note for Day of Date of Exam: 12/09/20 - Subjective Subjective: MS. JENSEN IS A 55 YEAR OLD W/F PATIENT OF . SHE WAS ADMITTED FOR TREATMENT OF COVID PNEUMONIA AND HYPOXIA ON 11/07/20. TODAY, SHE IS ALERT AND ORIENTED, SITTING UP IN THE BED ON MORNING ROUNDS. SHE IS CURRENTLY UTILIZING HEATED HIGH FLOW OXYGEN AT 90% FI02. SHE IS ALSO ON THE SMART VEST. STAFF REPORTS THAT PATIENTS OXYGEN SATURATIONS DROP TO THE 60s AND 70s WITH THE SLIGHTEST MOVEMENT IN BED. SHE CONTINUES WITH COMPLAINTS OF SHORTNESS OF BREATH AND WEAKNESS TODAY. HER SATURATIONS HAVE BEEN 87-98% THIS MORNING AND THROUGHOUT THE NIGHT. AGAIN, SATURATIONS DO DROP WITH MOVEMENT OR EXERTION. ON EXAMINATION, VIRAL ULCERS/SORES NOTED TO LIPS AND MOUTH. HEART IS REGULAR IN RATE AND RHYTHM. BILATERAL LUNGS ARE NOTED WITH DIMINISHED LUNG SOUNDS THROUGHOUT. ABDOMEN IS ROUND, SOFT, AND NON-TENDER WITH NORMAL BOWEL SOUNDS NOTED IN ALL QUADRANTS. HIS VITALS THIS MORNING ARE: 99.1-99-28-85%-110/64. LABS WERE OBTAINED. ABNORMAL LAB VALUES INCLUDE THE FOLLOWING: RBC 3.14, HGB 11.2, HCT 31.5, CARBON DIOXIDE 32.3, CREATININE 0.48, AST 59, CRP 30.50, TOTAL PROTEIN 5.9, ALBUMIN 2.1. BLOOD CULTURES ARE PENDING. ABG REVEALED: PH 7.450, PC02 51, P02 64, HC03 35.4, 02 SAT 93, BASE EXCESS 9.8, A-A GRADIENT 514, FI02 90. A CHEST XRAY WAS OBTAINED AND REVEALED: Diffuse bilateral opacity in the lungs is nonspecific and could be pulmonary edema or pneumonia. But it had a more patchy distribution on the CT from 11/06/2020 indicating pneumonia. No pleural effusion or pneumothorax. But there is of slight improvement since 3 days ago. Heart size is normal. Vascular calcifications are present compatible with atherosclerosis. Bones are unremarkable. SHE DID HAVE A SECONDARY BACTERIA PNEUMONIA FOR WHICH SHE RECEIVED ZOSYN AND AVELOX. HER LAST DOSE OF ZOSYN WAS ON 11/30/20. WE WILL CONTINUE HER IV FLUIDS, STEROIDS, SLIDING SCALE COVERAGE, NEB TX, ELIQUIS, AND CURRENT MEDICATIONS. WE WILL ADD LIDOCAINE/ACYCLOVIR OINTMENT TO ULCERS THREE TIMES A DAY. WE WILL REPEAT SPUTUM CULTURES. OTHERWISE, WE PLAN TO FOLLOW UP WITH AM LABS AND CONTINUE TO MONITOR. TIME SPENT ON CLINICAL ASSESSMENT, REVIEWING LABS AND IMAGING, DECISION MAKING, AND DOCUMENTATION GREATER THAN 45 MINUTES. - Past Medical Family Social History Past Med/Fam/Surg Hx: No changes since H&P Allergies: Allergies No Known Drug Allergies Allergy (Verified 11/06/20 20:00) - Review of Systems ROS: No change since H&P - Vital Signs and I&O's Vital Signs: Temperature 98.7 F Pulse Rate [Right Brachial] 70 Pulse Rate [Apical] 76 Pulse Rate 92 Respiratory Rate 24 Blood Pressure [Right Arm] 172/80 Blood Pressure [Left Arm] 143/74 Blood Pressure 114/59 O2 Sat by Pulse Oximetry 96 Intake and Output: Intake & Output 12/07/20 12/08/20 12/09/20 12/10/20 11:59 11:59 11:59 11:59 Intake Total 1168 / 1168 1024 / 1024 1441 / 1441 Output Total 600 / 600 750 / 750 350 / 350 Balance 568 / 568 274 / 274 1091 / 1091 - Physical Exam Oriented: Normal Eyes: Normal Ear: Normal Nose: Normal Throat: Normal Respiratory: Generalized, Diminished Cardiovascular: Normal : Normal Auscultation: Bowel Sounds: Normal Palpation: Normal Tenderness: Normal Skin: Normal Musculoskeletal: Normal Psychiatric: Anxiety Mood Description: Anxious Affect: Anxious Speech Pattern: Clear, Appropriate - Laboratory and Diagnostics Result Diagrams: 12/09/20 04:46 12/09/20 04:46 Labs: 11/19/20 12:03 Sputum - Expectorated Sputum Sputum Culture - Final Klebsiella Oxytoca 11/19/20 12:03 Sputum - Expectorated Sputum - Final Laboratory WBC 6.5 X10^3/uL (3.6-10.0) 12/09/20 04:46 RBC 3.14 X10^6/uL (3.5-5.4) L 12/09/20 04:46 Hgb 11.2 g/dL (12.0-16.0) L 12/09/20 04:46 Hct 31.5 % (36.0-47.0) L 12/09/20 04:46 MCV 100.3 fL (80.0-100.0) H 12/09/20 04:46 MCH 35.6 pg (27.0-34.0) H 12/09/20 04:46 MCHC 35.5 g/dL (33.0-35.0) H 12/09/20 04:46 RDW 16.4 % (11.6-16.5) 12/09/20 04:46 Plt Count 217 X10^3/uL (150.0-450.0) 12/09/20 04:46 Plt Count Comment Decreased (ADEQUATE) A 12/01/20 05:12 MPV 8.6 fL (7.4-11.0) 12/09/20 04:46 Neut % (Auto) 74.1 % (42.0-75.0) 12/09/20 04:46 Lymph % (Auto) 14.8 % (21.0-51.0) L 12/09/20 04:46 [place] % (Auto) 8.6 % (0.0-13.0) 12/09/20 04:46 Eos % (Auto) 2.0 % (0.9-2.9) 12/09/20 04:46 Baso % (Auto) 0.5 % (0.2-1.0) 12/09/20 04:46 Neut # (Auto) 4.8 x10^3/uL (2.2-4.8) 12/09/20 04:46 Lymph # (Auto) 1.0 X10^3/uL (1.3-2.9) L 12/09/20 04:46 [place] # (Auto) 0.6 x10^3/uL (0.3-0.8) 12/09/20 04:46 Eos # (Auto) 0.1 x10^3/uL (0.0-0.2) 12/09/20 04:46 Baso # (Auto) 0.0 X10^3/uL (0.0-0.1) 12/09/20 04:46 Absolute Nucleated RBC 0.2 /100WBC 12/09/20 04:46 Total Counted 100 12/01/20 05:12 Neutrophils % (Manual) 86 % (39-76) H 12/01/20 05:12 Band Neutrophils % 1 % (0-10) 12/01/20 05:12 Lymphocytes % (Manual) 11 % (13-43) L 12/01/20 05:12 Monocytes % (Manual) 2 % (4-9) L 12/01/20 05:12 Eosinophils % (Manual) 1 % (0-6) 11/25/20 03:39 Metamyelocytes % 2 11/25/20 03:39 Atypical Lymphocytes Few A 11/25/20 03:39 Plt Morphology Comment Normal (NORMAL) 12/01/20 05:12 RBC Morphology Normal (NORMAL) 12/01/20 05:12 D-Dimer 0.52 ug/ml (0.0-0.57) 12/09/20 04:46 Sample Site Rrad 12/09/20 05:50 ABG pH 7.450 (7.35-7.45) 12/09/20 05:50 ABG pCO2 51.0 mmHg (35.0-45.0) H* 12/09/20 05:50 ABG pO2 64.0 mmHg (80.0-100.0) L 12/09/20 05:50 ABG HCO3 35.4 mmol/L (22-26) H* 12/09/20 05:50 ABG O2 Saturation 93.0 % (90-100) 12/09/20 05:50 ABG Base Excess 9.8 mmol/L (-2.0-2.0) H 12/09/20 05:50 Michael Test Pos 12/09/20 05:50 A-a Gradient 514.0 mmHg 12/09/20 05:50 FiO2 90.0 12/09/20 05:50 Blood Gas Comments Lila well- 12/09/20 05:50 Sodium 136 mmol/L (136-145) 12/09/20 04:46 Corrected Sodium TNP 12/09/20 04:46 Potassium 3.6 mmol/L (3.5-5.1) 12/09/20 04:46 Chloride 99 mmol/L (98-107) 12/09/20 04:46 Carbon Dioxide 32.3 mmol/L (21-32) H 12/09/20 04:46 BUN 15 mg/dL (7-18) 12/09/20 04:46 Creatinine 0.48 mg/dL (0.55-1.02) L 12/09/20 04:46 Est GFR (MDRD) Af Amer > 60 (>60) 12/09/20 04:46 Est GFR (MDRD) Non-Af > 60 (>60) 12/09/20 04:46 Glucose 88 mg/dL (65-99) 12/09/20 04:46 POC Glucose (mg/dL) 131 mg/dL (65-99) H 12/08/20 11:45 Calcium 8.5 mg/dL (8.5-10.1) 12/09/20 04:46 Corrected Calcium 10.0 mg/dL (8.5-10.1) 12/09/20 04:46 Magnesium 1.9 mg/dL (1.7-2.9) 12/02/20 04:05 Ferritin 1723 ng/mL (8-252) H 11/06/20 20:41 Total Bilirubin 0.90 mg/dL (0.2-1.0) 12/09/20 04:46 AST 59 Units/L (15-37) H 12/09/20 04:46 ALT 64 Units/L (12-78) 12/09/20 04:46 Alkaline Phosphatase 84 Units/L (46-116) 12/09/20 04:46 C-Reactive Protein 30.50 mg/L (0-3.0) H 12/09/20 04:46 B-Natriuretic Peptide 38.1 pg/mL (0-79) 12/09/20 04:46 Total Protein 5.9 g/dL (6.4-8.2) L 12/09/20 04:46 Albumin 2.1 g/dL (3.4-5.0) L 12/09/20 04:46 Globulin 3.8 g/dL (2.5-4.5) 12/09/20 04:46 Albumin/Globulin Ratio 0.6 Ratio (1.1-2.1) L 12/09/20 04:46 TSH 3rd Generation 2.116 uIU/mL (0.358-3.74) 12/08/20 04:25 Specimen Type Catherized urine 11/17/20 11:54 Urine Color Yellow (YELLOW) 11/17/20 11:54 Urine Appearance Clear (CLEAR) 11/17/20 11:54 Urine pH 6.5 (5.0 - 8.0) 11/17/20 11:54 Ur Specific [place] 1.010 (1.000-1.030) 11/17/20 11:54 Urine Protein 1+ (NEGATIVE) 11/17/20 11:54 Urine Glucose (UA) Negative (NEGATIVE) 11/17/20 11:54 Urine Ketones Negative (NEGATIVE) 11/17/20 11:54 Urine Occult Blood Negative (NEGATIVE) 11/17/20 11:54 Urine Nitrite Negative (NEGATIVE) 11/17/20 11:54 Urine Bilirubin Negative (NEGATIVE) 11/17/20 11:54 Urine Urobilinogen 1+ (NORMAL) 11/17/20 11:54 Ur Leukocyte Esterase Negative (NEGATIVE) 11/17/20 11:54 Urine RBC 3-5 /HPF (0-3) A 11/17/20 11:54 Urine WBC 3-5 /HPF (0-5) 11/17/20 11:54 Ur Squamous Epith Cells Few /HPF (NEGATIVE) 11/17/20 11:54 Ur Transition Epith Cell Few /HPF (NEGATIVE) 11/17/20 11:54 Urine Bacteria Trace /HPF (NEGATIVE) 11/17/20 11:54 Urine Mucus Few /HPF (NEGATIVE) 11/17/20 11:54 Ur Culture Indicated? No/not indicated 11/17/20 11:54 SARS-CoV-2 (PCR) Positive (NEGATIVE) A 11/07/20 07:23 Influenza Type A (PCR) Negative (NEGATIVE) 11/07/20 07:23 Influenza Type B (PCR) Negative (NEGATIVE) 11/07/20 07:23 RSV (PCR) Negative (NEGATIVE) 11/07/20 07:23 - Plan (1) Pneumonia due to COVID-19 virus Status: Acute (2) Acute respiratory failure with hypoxia Status: Acute
[2020-12-09] MEDS: MELATONIN PO SCH (22:15)
[2020-12-10] MEDS: NS 1/2 1000 ML IV 1,000 ML IV SCH ×3 (03:07→17:01)
[2020-12-10 05:17] LABS: BASOPHILS % (AUTO) 0.4 % (0.2-1.0); EOSINOPHILS # (AUTO) 0.1 x10^3/uL (0.0-0.2); HEMATOCRIT 30.1 % (36.0-47.0); HEMOGLOBIN 10.6 g/dL (12.0-16.0); LYMPHOCYTES # (AUTO) 1.1 X10^3/uL (1.3-2.9); LYMPHOCYTES % (AUTO) 21.1 % (21.0-51.0); MEAN CORPUSCULAR HEMOGLOBIN 35.3 pg (27.0-34.0); MEAN CORPUSCULAR HGB CONC 35.1 g/dL (33.0-35.0); MEAN CORPUSCULAR VOLUME 100.6 fL (80.0-100.0); MEAN PLATELET VOLUME 8.4 fL (7.4-11.0); MONOCYTES # (AUTO) 0.5 x10^3/uL (0.3-0.8); MONOCYTES % (AUTO) 10.3 % (0.0-13.0); NEUTROPHILS # (AUTO) 3.4 x10^3/uL (2.2-4.8); NEUTROPHILS % (AUTO) 66.2 % (42.0-75.0); PLATELET COUNT 215 X10^3/uL (150.0-450.0); RED BLOOD COUNT 2.99 X10^6/uL (3.5-5.4); RED CELL DISTRIBUTION WIDTH 16.4 % (11.6-16.5); WHITE BLOOD COUNT 5.2 X10^3/uL (3.6-10.0)
[2020-12-10 05:26] LABS: ALANINE AMINOTRANSFERASE 57 Units/L (12-78); ALBUMIN 1.9 g/dL (3.4-5.0); ALKALINE PHOSPHATASE 76 Units/L (46-116); ASPARTATE AMINO TRANSFERASE 53 Units/L (15-37); BLOOD UREA NITROGEN 15 mg/dL (7-18); CALCIUM 8.4 mg/dL (8.5-10.1); CARBON DIOXIDE 33.7 mmol/L (21-32); CHLORIDE 101 mmol/L (98-107); COR CA(FOR HYPOALB) 10.1 mg/dL (8.5-10.1); CREATININE 0.46 mg/dL (0.55-1.02); SODIUM 139 mmol/L (136-145); TOTAL PROTEIN 5.7 g/dL (6.4-8.2); eGFR NON BLACK RACES > 60 (>60)
[2020-12-10 05:41] LABS: ABG BASE EXCESS 13.1 mmol/L (-2.0-2.0)
[2020-12-10 05:42] LABS: ABG ALLEN TEST POS; ABG HCO3 39.1 mmol/L (22-26)
--- NOTE | 2020-12-10 06:15 | RAD ---
HISTORYSOB, COVID PNEUMONIASTUDYCHEST, 1 [id number]/25/2021FINDINGSDiffuse bilateral opacity in the lungs probably represents pneumonia as seen on CT 11/06/2020.No pleural effusion or pneumothorax. No change from yesterday.Heart size is normal. Vascular calcifications are present compatible with atherosclerosis.Bones are unremarkable.EKG leads are noted.IMPRESSION1. Unchanged pneumoniaElectronically signed by: Valentín Pollard (Dec 10, 2020 06:14:26)
[2020-12-10] MEDS: XYLOCAINE OINT 5% 1 APPLIC, ZOVIRAX 1 APPLIC TOP SCH ×8 (06:58→23:45)
[2020-12-10] MEDS ORDERED: LEXAPRO ONE (08:16)
[2020-12-10] MEDS ORDERED: CORTEF ONE ×3 (08:38→17:09)
[2020-12-10] MEDS: PULMICORT NEB TX 0.5 MG NEB SCH ×2 (09:15→20:30)
[2020-12-10] MEDS: BROVANA IN SCH ×2 (09:15→20:30)
[2020-12-10] MEDS: CORTEF PO SCH ×3 (09:17→17:11)
[2020-12-10] MEDS: LEXAPRO PO SCH (09:17)
[2020-12-10] MEDS: MAGIC MOUTHWASH MT SCH ×4 (09:18→23:43)
[2020-12-10] MEDS: ELIQUIS PO SCH ×2 (09:18→23:15)
[2020-12-10] MEDS: NYSTATIN SUSP MT SCH ×4 (09:18→23:43)
[2020-12-10] MEDS: PEPCID TAB 40 MG PO SCH ×2 (09:18→23:15)
[2020-12-10] MEDS: SYNTHROID 25 mcg TAB PO SCH (09:18)
[2020-12-10] MEDS: ACTOS PO SCH (09:18)
[2020-12-10] MEDS: GLUCOPHAGE XR 24-HR PO SCH ×2 (09:18→23:15)
[2020-12-10] MEDS: VSL#3 PO SCH ×2 (09:19→23:15)
[2020-12-10] MEDS: VITAMIN D3 125 mcg (5,000 UNITS) PO SCH (09:19)
[2020-12-10] MEDS: VITAMIN C PO SCH ×2 (09:19→23:15)
[2020-12-10] MEDS: VITAMIN A PO SCH (09:19)
[2020-12-10] MEDS ORDERED: NS 1000 ML 1,000 ML IV ONE (09:48)
[2020-12-10] MEDS ORDERED: NS 1/2 1000 ML IV 1,000 ML IV ONE (11:02)
[2020-12-10] MEDS: KLOR-CON PO PRN (11:17)
[2020-12-10] MEDS: K-DUR TAB 20 MEQ PO PRN (11:18)
[2020-12-10] MEDS: MAGNESIUM SULFATE 1 GRAM/100 mL PREMIX 1 GM/100 ML BAG IV PRN ×2 (11:18→12:56)
--- NOTE | 2020-12-10 16:23 | PCM.PROG ---
Progress Note - Progress Note for Day of Date of Exam: 12/10/20 - Subjective Subjective: MS. JENSEN IS A 55 YEAR OLD W/F PATIENT OF . SHE WAS ADMITTED FOR TREATMENT OF COVID PNEUMONIA AND HYPOXIA ON 11/07/20. TODAY, SHE IS ALERT AND ORIENTED, SITTING UP IN THE BED ON MORNING ROUNDS. SHE IS CURRENTLY UTILIZING HEATED HIGH FLOW OXYGEN AT 90% FI02. STAFF REPORTS THAT PATIENTS OXYGEN SATURATIONS DROP TO THE 60s AND 70s WITH THE SLIGHTEST MOVEMENT IN BED. SHE CONTINUES WITH COMPLAINTS OF SHORTNESS OF BREATH AND WEAKNESS TODAY. HER SATURATIONS HAVE BEEN 83-96% THIS MORNING AND THROUGHOUT THE NIGHT. AGAIN, SATURATIONS DO DROP WITH MOVEMENT OR EXERTION. ON EXAMINATION, VIRAL ULCERS/SORES NOTED TO LIPS AND MOUTH. HEART IS REGULAR IN RATE AND RHYTHM. BILATERAL LUNGS ARE NOTED WITH DIMINISHED LUNG SOUNDS THROUGHOUT. ABDOMEN IS ROUND, SOFT, AND NON-TENDER WITH NORMAL BOWEL SOUNDS NOTED IN ALL QUADRANTS. HER VITALS THIS MORNING ARE: 98.1-86-32-86%-117/74. LABS WERE OBTAINED. ABNORMAL LAB VALUES INCLUDE THE FOLLOWING: RBC 2.99, HGB 10.6, HCT 30.1, POTASSIUM 3.4, CARBON DIOXIDE 33.7, CREATININE 0.46, CALCIUM 8.4, AST 53, CRP 27.90, TOTAL PROTEIN 5.7, ALBUMIN 1.9. BLOOD CULTURES ARE PENDING. ABG REVEALED: PH 7.460, PC02 55, P02 71, HC03 39.1, 02 SAT 95, BASE EXCESS 13.1, A-A GRADIENT 509, FI02 91.0. A CHEST XRAY WAS OBTAINED AND REVEALED: 1. Unchanged pneumonia. WE WILL CONTINUE HER IV FLUIDS, STEROIDS, SLIDING SCALE COVERAGE, NEB TX, ELIQUIS, LIDOCAINE/ACYCLOVIR OINTMENT, AND CURRENT MEDICATIONS. DUE TO HER BLOOD PRESSURE TRENDING LOW AND DECREASED URINE OUTPUT, WE WILL BOLUS 1 LITER OF NORMAL SALINE AND THEN RUN HER MAINTENANCE FLUIDS AT 75 ML/HR. OTHERWISE, WE PLAN TO FOLLOW UP WITH AM LABS AND CONTINUE TO MONITOR. TIME SPENT ON CLINICAL ASSESSMENT, REVIEWING LABS AND IMAGING, DECISION MAKING, AND DOCUMENTATION GREATER THAN 45 MINUTES. - Past Medical Family Social History Past Med/Fam/Surg Hx: No changes since H&P Allergies: Allergies No Known Drug Allergies Allergy (Verified 11/06/20 20:00) - Review of Systems ROS: No change since H&P - Vital Signs and I&O's Vital Signs: Temperature 98.1 F Pulse Rate [Right Brachial] 70 Pulse Rate [Apical] 76 Pulse Rate 88 Respiratory Rate 30 Blood Pressure [Right Arm] 172/80 Blood Pressure [Left Arm] 143/74 Blood Pressure 107/58 O2 Sat by Pulse Oximetry 92 Intake and Output: Intake & Output 12/08/20 12/09/20 12/10/20 12/11/20 11:59 11:59 11:59 11:59 Intake Total 1024 / 1024 1441 / 1441 2500 / 2500 Output Total 750 / 750 350 / 350 820 / 820 Balance 274 / 274 1091 / 1091 1680 / 1680 - Physical Exam Oriented: Normal Eyes: Normal Ear: Normal Nose: Normal Throat: Normal Respiratory: Generalized, Diminished Cardiovascular: Normal : Normal Auscultation: Bowel Sounds: Normal Tenderness: Normal Skin: Normal Musculoskeletal: Normal Psychiatric: Anxiety Mood Description: Anxious Affect: Anxious Speech Pattern: Clear, Appropriate - Laboratory and Diagnostics Result Diagrams: 12/10/20 04:16 12/10/20 04:16 Labs: 12/10/20 13:20 Sputum - Expectorated Sputum - Final 11/19/20 12:03 Sputum - Expectorated Sputum Sputum Culture - Final Klebsiella Oxytoca 11/19/20 12:03 Sputum - Expectorated Sputum - Final Laboratory WBC 5.2 X10^3/uL (3.6-10.0) 12/10/20 04:16 RBC 2.99 X10^6/uL (3.5-5.4) L 12/10/20 04:16 Hgb 10.6 g/dL (12.0-16.0) L 12/10/20 04:16 Hct 30.1 % (36.0-47.0) L 12/10/20 04:16 MCV 100.6 fL (80.0-100.0) H 12/10/20 04:16 MCH 35.3 pg (27.0-34.0) H 12/10/20 04:16 MCHC 35.1 g/dL (33.0-35.0) H 12/10/20 04:16 RDW 16.4 % (11.6-16.5) 12/10/20 04:16 Plt Count 215 X10^3/uL (150.0-450.0) 12/10/20 04:16 Plt Count Comment Decreased (ADEQUATE) A 12/01/20 05:12 MPV 8.4 fL (7.4-11.0) 12/10/20 04:16 Neut % (Auto) 66.2 % (42.0-75.0) 12/10/20 04:16 Lymph % (Auto) 21.1 % (21.0-51.0) 12/10/20 04:16 [place] % (Auto) 10.3 % (0.0-13.0) 12/10/20 04:16 Eos % (Auto) 2.0 % (0.9-2.9) 12/10/20 04:16 Baso % (Auto) 0.4 % (0.2-1.0) 12/10/20 04:16 Neut # (Auto) 3.4 x10^3/uL (2.2-4.8) 12/10/20 04:16 Lymph # (Auto) 1.1 X10^3/uL (1.3-2.9) L 12/10/20 04:16 [place] # (Auto) 0.5 x10^3/uL (0.3-0.8) 12/10/20 04:16 Eos # (Auto) 0.1 x10^3/uL (0.0-0.2) 12/10/20 04:16 Baso # (Auto) 0.0 X10^3/uL (0.0-0.1) 12/10/20 04:16 Absolute Nucleated RBC 0.1 /100WBC 12/10/20 04:16 Total Counted 100 12/01/20 05:12 Neutrophils % (Manual) 86 % (39-76) H 12/01/20 05:12 Band Neutrophils % 1 % (0-10) 12/01/20 05:12 Lymphocytes % (Manual) 11 % (13-43) L 12/01/20 05:12 Monocytes % (Manual) 2 % (4-9) L 12/01/20 05:12 Eosinophils % (Manual) 1 % (0-6) 11/25/20 03:39 Metamyelocytes % 2 11/25/20 03:39 Atypical Lymphocytes Few A 11/25/20 03:39 Plt Morphology Comment Normal (NORMAL) 12/01/20 05:12 RBC Morphology Normal (NORMAL) 12/01/20 05:12 D-Dimer 0.55 ug/ml (0.0-0.57) 12/10/20 04:16 Sample Site Lrad 12/10/20 05:38 ABG pH 7.460 (7.35-7.45) H 12/10/20 05:38 ABG pCO2 55.0 mmHg (35.0-45.0) H* 12/10/20 05:38 ABG pO2 71.0 mmHg (80.0-100.0) L 12/10/20 05:38 ABG HCO3 39.1 mmol/L (22-26) H* 12/10/20 05:38 ABG O2 Saturation 95.0 % (90-100) 12/10/20 05:38 ABG Base Excess 13.1 mmol/L (-2.0-2.0) H 12/10/20 05:38 Michael Test Pos 12/10/20 05:38 A-a Gradient 509.0 mmHg 12/10/20 05:38 FiO2 91.0 12/10/20 05:38 Blood Gas Comments Lila well mts 12/10/20 05:38 Sodium 139 mmol/L (136-145) 12/10/20 04:16 Corrected Sodium TNP 12/10/20 04:16 Potassium 3.4 mmol/L (3.5-5.1) L 12/10/20 04:16 Chloride 101 mmol/L (98-107) 12/10/20 04:16 Carbon Dioxide 33.7 mmol/L (21-32) H 12/10/20 04:16 BUN 15 mg/dL (7-18) 12/10/20 04:16 Creatinine 0.46 mg/dL (0.55-1.02) L 12/10/20 04:16 Est GFR (MDRD) Af Amer > 60 (>60) 12/10/20 04:16 Est GFR (MDRD) Non-Af > 60 (>60) 12/10/20 04:16 Glucose 91 mg/dL (65-99) 12/10/20 04:16 POC Glucose (mg/dL) 131 mg/dL (65-99) H 12/08/20 11:45 Calcium 8.4 mg/dL (8.5-10.1) L 12/10/20 04:16 Corrected Calcium 10.1 mg/dL (8.5-10.1) 12/10/20 04:16 Magnesium 1.8 mg/dL (1.7-2.9) 12/10/20 04:16 Ferritin 1723 ng/mL (8-252) H 11/06/20 20:41 Total Bilirubin 0.70 mg/dL (0.2-1.0) 12/10/20 04:16 AST 53 Units/L (15-37) H 12/10/20 04:16 ALT 57 Units/L (12-78) 12/10/20 04:16 Alkaline Phosphatase 76 Units/L (46-116) 12/10/20 04:16 C-Reactive Protein 27.90 mg/L (0-3.0) H 12/10/20 04:16 B-Natriuretic Peptide 37.5 pg/mL (0-79) 12/10/20 04:16 Total Protein 5.7 g/dL (6.4-8.2) L 12/10/20 04:16 Albumin 1.9 g/dL (3.4-5.0) L 12/10/20 04:16 Globulin 3.8 g/dL (2.5-4.5) 12/10/20 04:16 Albumin/Globulin Ratio 0.5 Ratio (1.1-2.1) L 12/10/20 04:16 TSH 3rd Generation 2.116 uIU/mL (0.358-3.74) 12/08/20 04:25 Specimen Type Catherized urine 11/17/20 11:54 Urine Color Yellow (YELLOW) 11/17/20 11:54 Urine Appearance Clear (CLEAR) 11/17/20 11:54 Urine pH 6.5 (5.0 - 8.0) 11/17/20 11:54 Ur Specific [place] 1.010 (1.000-1.030) 11/17/20 11:54 Urine Protein 1+ (NEGATIVE) 11/17/20 11:54 Urine Glucose (UA) Negative (NEGATIVE) 11/17/20 11:54 Urine Ketones Negative (NEGATIVE) 11/17/20 11:54 Urine Occult Blood Negative (NEGATIVE) 11/17/20 11:54 Urine Nitrite Negative (NEGATIVE) 11/17/20 11:54 Urine Bilirubin Negative (NEGATIVE) 11/17/20 11:54 Urine Urobilinogen 1+ (NORMAL) 11/17/20 11:54 Ur Leukocyte Esterase Negative (NEGATIVE) 11/17/20 11:54 Urine RBC 3-5 /HPF (0-3) A 11/17/20 11:54 Urine WBC 3-5 /HPF (0-5) 11/17/20 11:54 Ur Squamous Epith Cells Few /HPF (NEGATIVE) 11/17/20 11:54 Ur Transition Epith Cell Few /HPF (NEGATIVE) 11/17/20 11:54 Urine Bacteria Trace /HPF (NEGATIVE) 11/17/20 11:54 Urine Mucus Few /HPF (NEGATIVE) 11/17/20 11:54 Ur Culture Indicated? No/not indicated 11/17/20 11:54 SARS-CoV-2 (PCR) Positive (NEGATIVE) A 11/07/20 07:23 Influenza Type A (PCR) Negative (NEGATIVE) 11/07/20 07:23 Influenza Type B (PCR) Negative (NEGATIVE) 11/07/20 07:23 RSV (PCR) Negative (NEGATIVE) 11/07/20 07:23 - Plan (1) Pneumonia due to COVID-19 virus Status: Acute (2) Acute respiratory failure with hypoxia Status: Acute
[2020-12-10] MEDS: KLONOPIN TAB 0.5 MG PO PRN (23:15)
[2020-12-10] MEDS: MELATONIN PO SCH (23:15)
[2020-12-11] MEDS ORDERED: NS 1/2 1000 ML IV 1,000 ML IV ONE ×2 (01:28→21:46)
[2020-12-11 04:44] LABS: ABG ALLEN TEST POS; ABG BASE EXCESS 11.7 mmol/L (-2.0-2.0)
[2020-12-11 05:14] LABS: BASOPHILS % (AUTO) 0.4 % (0.2-1.0); EOSINOPHILS # (AUTO) 0.1 x10^3/uL (0.0-0.2); EOSINOPHILS % (AUTO) 1.6 % (0.9-2.9); HEMATOCRIT 29.1 % (36.0-47.0); HEMOGLOBIN 10.1 g/dL (12.0-16.0); LYMPHOCYTES # (AUTO) 1.1 X10^3/uL (1.3-2.9); MEAN CORPUSCULAR HEMOGLOBIN 35.1 pg (27.0-34.0); MEAN CORPUSCULAR HGB CONC 34.6 g/dL (33.0-35.0); MEAN CORPUSCULAR VOLUME 101.4 fL (80.0-100.0); MEAN PLATELET VOLUME 8.3 fL (7.4-11.0); MONOCYTES # (AUTO) 0.5 x10^3/uL (0.3-0.8); MONOCYTES % (AUTO) 9.4 % (0.0-13.0); NEUTROPHILS # (AUTO) 3.4 x10^3/uL (2.2-4.8); NEUTROPHILS % (AUTO) 66.6 % (42.0-75.0); PLATELET COUNT 201 X10^3/uL (150.0-450.0); RED BLOOD COUNT 2.87 X10^6/uL (3.5-5.4); RED CELL DISTRIBUTION WIDTH 16.9 % (11.6-16.5); WHITE BLOOD COUNT 5.1 X10^3/uL (3.6-10.0)
[2020-12-11 05:36] LABS: ALANINE AMINOTRANSFERASE 56 Units/L (12-78); ALBUMIN 1.8 g/dL (3.4-5.0); ALKALINE PHOSPHATASE 74 Units/L (46-116); ASPARTATE AMINO TRANSFERASE 52 Units/L (15-37); BLOOD UREA NITROGEN 14 mg/dL (7-18); CALCIUM 7.9 mg/dL (8.5-10.1); CARBON DIOXIDE 33.5 mmol/L (21-32); CHLORIDE 101 mmol/L (98-107); COR CA(FOR HYPOALB) 9.7 mg/dL (8.5-10.1); CREATININE 0.52 mg/dL (0.55-1.02); SODIUM 140 mmol/L (136-145); TOTAL PROTEIN 5.6 g/dL (6.4-8.2); eGFR NON BLACK RACES > 60 (>60)
[2020-12-11] MEDS: XYLOCAINE OINT 5% 1 APPLIC, ZOVIRAX 1 APPLIC TOP SCH ×6 (05:53→22:11)
[2020-12-11] MEDS: NS 1/2 1000 ML IV 1,000 ML IV SCH ×3 (05:53→22:11)
[2020-12-11 06:20] LABS: ANISOCYTOSIS SLIGHT; BAND NEUTROPHILS % 1 % (0-10); HYPOCHROMASIA SLIGHT; PLATELET MORPHOLOGY COMMENT NORMAL (NORMAL)
--- NOTE | 2020-12-11 07:12 | RAD ---
HISTORYSOBSTUDYCHEST, 1 VIEWCOMPARISONOne day prior.TECHNIQUEAP view of the chestFINDINGSCardiac and mediastinal contours are within normal limits. Mild improvement in bilateral airspace and interstitial opacities. No definite pleural effusion or pneumothorax.IMPRESSIONMildly improved airspace and interstitial opacities may represent improvement in pulmonary edema or pneumonia.Electronically signed by: London Moody (Dec 11, 2020 07:10:44)
[2020-12-11] MEDS: MAGIC MOUTHWASH MT SCH ×4 (08:46→22:10)
[2020-12-11] MEDS ORDERED: LEXAPRO ONE (08:50)
[2020-12-11] MEDS ORDERED: CORTEF ONE ×3 (08:53→16:40)
[2020-12-11] MEDS: BROVANA IN SCH ×2 (09:00→20:25)
[2020-12-11] MEDS: PULMICORT NEB TX 0.5 MG NEB SCH ×2 (09:00→20:25)
[2020-12-11] MEDS: VSL#3 PO SCH ×3 (09:47→22:14)
[2020-12-11] MEDS: CORTEF PO SCH ×3 (09:47→17:08)
[2020-12-11] MEDS: KLONOPIN TAB 0.5 MG PO PRN (09:47)
[2020-12-11] MEDS: VITAMIN A PO SCH (09:48)
[2020-12-11] MEDS: SYNTHROID 25 mcg TAB PO SCH (09:50)
[2020-12-11] MEDS: GLUCOPHAGE XR 24-HR PO SCH ×2 (09:51→20:42)
[2020-12-11] MEDS: VITAMIN D3 125 mcg (5,000 UNITS) PO SCH (09:51)
[2020-12-11] MEDS: ELIQUIS PO SCH ×3 (09:51→22:13)
[2020-12-11] MEDS: VITAMIN C PO SCH ×2 (09:51→20:42)
[2020-12-11] MEDS: PEPCID TAB 40 MG PO SCH ×3 (09:51→22:14)
[2020-12-11] MEDS: NYSTATIN SUSP MT SCH ×5 (09:52→22:10)
[2020-12-11] MEDS: ACTOS PO SCH (09:52)
[2020-12-11] MEDS: K-DUR TAB 20 MEQ PO PRN (09:53)
[2020-12-11] MEDS: LEXAPRO PO SCH (10:11)
--- NOTE | 2020-12-11 12:26 | CT ---
HISTORYHYPOXIA, COVID +STUDYCHEST WITH [id number]/23/2021; chest x-ray same dayTECHNIQUEMultiple axial images of the chest were obtained from the thoracic inlet to the upper abdomen after the administration of IV contrast. 3D reconstructions utilizing axial MIPS imaging was performed and reviewed. Dose reduction techniques including Automated Exposure Control (AEC) and adjustment of mA and kV were utilized.FINDINGSNo pneumothorax or effusion. Scattered ground-glass opacities and consolidation throughout the bilateral lungs.The heart is stable in size. No evidence of pericardial disease. Coronary calcifications. Likely reactive mediastinal lymph nodes. Visualized portions of the thyroid are unremarkable.No acute osseous abnormality. Multilevel degenerative changes throughout the visualized spine.Limited visualized portions of the upper abdomen demonstrate no acute process.IMPRESSIONScattered ground-glass opacities and consolidation throughout the bilateral lungs consistent with history of COVID-19. Recommend follow-up to resolution.Electronically signed by: HERRERA WEBER (Dec 11, 2020 12:25:31)
[2020-12-11] MEDS ORDERED: DUONEB 0.5 MG/3 MG (3 mL) NEB ONE ×2 (17:51→17:55)
[2020-12-11] MEDS ORDERED: ATIVAN INJ 2 MG VIAL IVP ONE (18:27)
[2020-12-11] MEDS ORDERED: ATIVAN INJ 2 MG VIAL ONE (18:29)
[2020-12-11] MEDS: MELATONIN PO SCH ×2 (20:42→22:13)
[2020-12-12] MEDS: NS 1/2 1000 ML IV 1,000 ML IV SCH ×3 (05:01→21:32)
[2020-12-12 05:25] LABS: ABG BASE EXCESS 13.8 mmol/L (-2.0-2.0)
[2020-12-12 05:26] LABS: ABG ALLEN TEST POS
[2020-12-12 05:48] LABS: BASOPHILS # (AUTO) 0.1 X10^3/uL (0.0-0.1); BASOPHILS % (AUTO) 0.7 % (0.2-1.0); EOSINOPHILS # (AUTO) 0.1 x10^3/uL (0.0-0.2); EOSINOPHILS % (AUTO) 1.2 % (0.9-2.9); HEMATOCRIT 30.2 % (36.0-47.0); HEMOGLOBIN 10.5 g/dL (12.0-16.0); LYMPHOCYTES # (AUTO) 0.9 X10^3/uL (1.3-2.9); LYMPHOCYTES % (AUTO) 12.5 % (21.0-51.0); MEAN CORPUSCULAR HEMOGLOBIN 35.2 pg (27.0-34.0); MEAN CORPUSCULAR HGB CONC 34.7 g/dL (33.0-35.0); MEAN CORPUSCULAR VOLUME 101.6 fL (80.0-100.0); MEAN PLATELET VOLUME 8.3 fL (7.4-11.0); MONOCYTES # (AUTO) 0.8 x10^3/uL (0.3-0.8); MONOCYTES % (AUTO) 10.8 % (0.0-13.0); NEUTROPHILS # (AUTO) 5.5 x10^3/uL (2.2-4.8); NEUTROPHILS % (AUTO) 74.8 % (42.0-75.0); PLATELET COUNT 220 X10^3/uL (150.0-450.0); RED BLOOD COUNT 2.97 X10^6/uL (3.5-5.4); WHITE BLOOD COUNT 7.4 X10^3/uL (3.6-10.0)
[2020-12-12 05:55] LABS: ALANINE AMINOTRANSFERASE 53 Units/L (12-78); ALKALINE PHOSPHATASE 81 Units/L (46-116); ASPARTATE AMINO TRANSFERASE 57 Units/L (15-37); BLOOD UREA NITROGEN 8 mg/dL (7-18); CALCIUM 7.9 mg/dL (8.5-10.1); CARBON DIOXIDE 36.6 mmol/L (21-32); CHLORIDE 100 mmol/L (98-107); COR CA(FOR HYPOALB) 9.5 mg/dL (8.5-10.1); CREATININE 0.31 mg/dL (0.55-1.02); SODIUM 139 mmol/L (136-145); TOTAL PROTEIN 5.8 g/dL (6.4-8.2); eGFR NON BLACK RACES > 60 (>60)
[2020-12-12] MEDS: XYLOCAINE OINT 5% 1 APPLIC, ZOVIRAX 1 APPLIC TOP SCH ×6 (05:55→21:55)
--- NOTE | 2020-12-12 06:18 | RAD ---
HISTORYSOBSTUDYCHEST, 1 VIEWCOMPARISONOne day prior.TECHNIQUEAP view of the chestFINDINGSPatient is rotated.The cardiac and mediastinal contours appear stable. No significant change in bilateral airspace and interstitial opacities. No definite pleural effusion or pneumothorax. Soft tissue attenuation limits evaluation.IMPRESSIONNo significant change.Electronically signed by: London Moody (Dec 12, 2020 06:15:56)
[2020-12-12 06:24] LABS: BAND NEUTROPHILS % 3 % (0-10); METAMYELOCYTES % 3; MYELOCYTES % 2
[2020-12-12 06:26] LABS: PLATELET MORPHOLOGY COMMENT NORMAL (NORMAL)
[2020-12-12 06:27] LABS: ANISOCYTOSIS SLIGHT; HYPOCHROMASIA SLIGHT
[2020-12-12] MEDS: K-RIDER 10 MEQ/NS 100 ML 10 MEQ/100 ML BAG IV PRN (06:34)
[2020-12-12] MEDS: PULMICORT NEB TX 0.5 MG NEB SCH ×2 (08:50→21:21)
[2020-12-12] MEDS: BROVANA IN SCH ×2 (08:50→21:21)
[2020-12-12] MEDS ORDERED: LEXAPRO ONE (09:06)
[2020-12-12] MEDS ORDERED: MVI INJ (ADULT) IV SCH (10:00)
[2020-12-12] MEDS ORDERED: NS 500 ML IV 500 ML IV ONE (10:25)
[2020-12-12] MEDS: NS IV SCH (10:38)
[2020-12-12] MEDS: MVI IV SCH (10:38)
[2020-12-12] MEDS: CORTEF PO SCH ×3 (10:50→17:26)
[2020-12-12] MEDS: ACTOS PO SCH (10:50)
[2020-12-12] MEDS: GLUCOPHAGE XR 24-HR PO SCH ×2 (10:50→21:54)
[2020-12-12] MEDS: ELIQUIS PO SCH ×2 (10:50→21:54)
[2020-12-12] MEDS: SYNTHROID 25 mcg TAB PO SCH (10:51)
[2020-12-12] MEDS: PEPCID TAB 40 MG PO SCH ×2 (10:51→21:56)
[2020-12-12] MEDS: VITAMIN A PO SCH (10:51)
[2020-12-12] MEDS: MAGIC MOUTHWASH MT SCH ×4 (10:51→21:55)
[2020-12-12] MEDS: LEXAPRO PO SCH (10:51)
[2020-12-12] MEDS: NYSTATIN SUSP MT SCH ×4 (10:51→21:56)
[2020-12-12] MEDS: VITAMIN C PO SCH ×2 (10:52→21:55)
[2020-12-12] MEDS: VITAMIN D3 125 mcg (5,000 UNITS) PO SCH (10:52)
[2020-12-12] MEDS: VSL#3 PO SCH ×2 (10:52→21:55)
[2020-12-12] MEDS: FOLIC ACID TAB 1 MG PO SCH (10:52)
[2020-12-12] MEDS ORDERED: NS 1/2 1000 ML IV 1,000 ML IV ONE (15:17)
[2020-12-12] MEDS ORDERED: DUONEB 0.5 MG/3 MG (3 mL) NEB ONE (16:01)
[2020-12-12] MEDS ORDERED: ACCUNEB 1.25 MG NEBULE ONE (16:38)
[2020-12-12] MEDS ORDERED: ATIVAN INJ 2 MG VIAL ONE (19:47)
[2020-12-12] MEDS: ATIVAN INJ 2 MG VIAL IVP PRN (19:50)
[2020-12-12 19:53] LABS: ABG BASE EXCESS 15.2 mmol/L (-2.0-2.0)
[2020-12-12 19:54] LABS: ABG ALLEN TEST POS; ABG HCO3 43.9 mmol/L (22-26)
[2020-12-12] MEDS: KLONOPIN TAB 1 MG PO SCH (21:54)
[2020-12-12] MEDS: MELATONIN PO SCH (21:56)
[2020-12-12] MEDS ORDERED: NORMODYNE INJ 20 MG VIAL ONE (23:02)
[2020-12-12] MEDS ORDERED: NORMODYNE INJ 20 MG VIAL IVP ONE (23:07)
[2020-12-13 04:32] LABS: ABG BASE EXCESS 16.9 mmol/L (-2.0-2.0)
[2020-12-13 04:33] LABS: ABG ALLEN TEST POS
[2020-12-13 05:25] LABS: BASOPHILS % (AUTO) 0.4 % (0.2-1.0); EOSINOPHILS % (AUTO) 0.5 % (0.9-2.9); HEMATOCRIT 30.4 % (36.0-47.0); HEMOGLOBIN 10.6 g/dL (12.0-16.0); LYMPHOCYTES # (AUTO) 0.8 X10^3/uL (1.3-2.9); LYMPHOCYTES % (AUTO) 8.3 % (21.0-51.0); MEAN CORPUSCULAR HEMOGLOBIN 35.1 pg (27.0-34.0); MEAN CORPUSCULAR HGB CONC 34.9 g/dL (33.0-35.0); MEAN CORPUSCULAR VOLUME 100.6 fL (80.0-100.0); MONOCYTES # (AUTO) 0.7 x10^3/uL (0.3-0.8); MONOCYTES % (AUTO) 7.3 % (0.0-13.0); NEUTROPHILS # (AUTO) 8.3 x10^3/uL (2.2-4.8); NEUTROPHILS % (AUTO) 83.5 % (42.0-75.0); PLATELET COUNT 199 X10^3/uL (150.0-450.0); RED BLOOD COUNT 3.03 X10^6/uL (3.5-5.4); RED CELL DISTRIBUTION WIDTH 16.7 % (11.6-16.5); WHITE BLOOD COUNT 9.9 X10^3/uL (3.6-10.0)
[2020-12-13 05:32] LABS: ALANINE AMINOTRANSFERASE 53 Units/L (12-78); ALBUMIN 2.1 g/dL (3.4-5.0); ALKALINE PHOSPHATASE 91 Units/L (46-116); ASPARTATE AMINO TRANSFERASE 61 Units/L (15-37); BLOOD UREA NITROGEN 8 mg/dL (7-18); CALCIUM 8.2 mg/dL (8.5-10.1); CHLORIDE 99 mmol/L (98-107); COR CA(FOR HYPOALB) 9.7 mg/dL (8.5-10.1); SODIUM 139 mmol/L (136-145); TOTAL PROTEIN 6.1 g/dL (6.4-8.2); eGFR NON BLACK RACES > 60 (>60)
[2020-12-13] MEDS: XYLOCAINE OINT 5% 1 APPLIC, ZOVIRAX 1 APPLIC TOP SCH ×6 (05:52→21:30)
--- NOTE | 2020-12-13 06:06 | RAD ---
HISTORYSOB PMH: HTNSTUDYCHEST, 1 [id number]/28/2021FINDINGSThe trachea is midline. The cardiac silhouette is unremarkable. Bilateral airspace and interstitial opacities unchanged. No pneumothorax. The bony thorax is unremarkable.IMPRESSIONStable portable chestElectronically signed by: Vahe Velasquez (Dec 13, 2020 06:04:48)
[2020-12-13] MEDS: BROVANA IN SCH ×2 (08:52→21:43)
[2020-12-13] MEDS: PULMICORT NEB TX 0.5 MG NEB SCH ×2 (08:52→21:43)
[2020-12-13] MEDS ORDERED: VORICONAZOLE 400 MG in NS 100 ML IV 100 ML IV SCH (09:00)
[2020-12-13] MEDS: ZOSYN VIAL 3.375 GRAMS 3.375 G in NS 50 ML IV + SPIKE MINIBAG* 50 ML IV SCH ×3 (09:50→21:30)
[2020-12-13] MEDS: ACTOS PO SCH (09:59)
[2020-12-13] MEDS: FOLIC ACID TAB 1 MG PO SCH (10:00)
[2020-12-13] MEDS: ELIQUIS PO SCH (10:00)
[2020-12-13] MEDS: GLUCOPHAGE XR 24-HR PO SCH ×2 (10:03→22:42)
[2020-12-13] MEDS: MAGIC MOUTHWASH MT SCH ×4 (10:04→22:43)
[2020-12-13] MEDS: NYSTATIN SUSP MT SCH ×4 (10:04→22:44)
[2020-12-13] MEDS: KLONOPIN TAB 1 MG PO SCH ×2 (10:04→22:42)
[2020-12-13] MEDS: LEXAPRO PO SCH (10:04)
[2020-12-13] MEDS: PEPCID TAB 40 MG PO SCH ×2 (10:05→22:44)
[2020-12-13] MEDS: VSL#3 PO SCH ×2 (10:05→22:45)
[2020-12-13] MEDS: PREDNISONE TAB 10 MG PO SCH (10:18)
[2020-12-13] MEDS: VITAMIN C PO SCH ×2 (10:19→22:45)
[2020-12-13] MEDS: VITAMIN A PO SCH (10:19)
[2020-12-13] MEDS: SYNTHROID 25 mcg TAB PO SCH (10:19)
[2020-12-13] MEDS: VITAMIN D3 125 mcg (5,000 UNITS) PO SCH (10:21)
[2020-12-13 10:57] LABS: BILIRUBIN,URINE NEGATIVE (NEGATIVE); BLOOD/HEMOGLOBIN,URINE 5+ (NEGATIVE); GLUCOSE, URINE NEGATIVE (NEGATIVE); KETONES,URINE 3+ (NEGATIVE); LEUKOCYTE ESTERASE ,URINE 1+ (NEGATIVE); NITRITES,URINE POSITIVE (NEGATIVE); PROTEIN,URINE 2+ (NEGATIVE); UROBILINOGEN,URINE NORMAL (NORMAL)
[2020-12-13 11:02] LABS: APPEARANCE,URINE CLOUDY (CLEAR); COLOR,URINE AMBER (YELLOW)
[2020-12-13 11:07] LABS: AMORPHOUS SEDIMENT,UR 2+ /HPF (NEGATIVE); BACTERIA,URINE 2+ /HPF (NEGATIVE); RBC,URINE TNTC /HPF (0-3); SQUAMOUS EPITHELIAL CELL,UR RARE /HPF (NEGATIVE)
[2020-12-13] MEDS: NS 1000 ML 1,000 ML IV SCH ×4 (11:25→17:44)
[2020-12-13] MEDS: MVI IV SCH (11:25)
[2020-12-13] MEDS: NS IV SCH (11:25)
[2020-12-13] MEDS: BENADRYL INJ 50 MG VIAL IVP SCH (11:26)
[2020-12-13] MEDS: AMBISOME 300 MG in D5W 250 ML IV 250 ML IV SCH (12:44)
[2020-12-13] MEDS: NYSTATIN SUSP PO SCH ×3 (13:20→22:44)
[2020-12-13] MEDS ORDERED: PROVENTIL NEB TX 0.083% 2.5MG/ 3ML ONE (13:46)
[2020-12-13] MEDS: LOVENOX INJ 30 MG SYR SC SCH ×2 (15:29→22:42)
[2020-12-13] MEDS: ATIVAN INJ 2 MG VIAL IVP PRN (20:30)
[2020-12-13] MEDS: MELATONIN PO SCH (22:44)
[2020-12-14] MEDS: NS 1000 ML 1,000 ML IV SCH ×7 (00:06→18:24)
[2020-12-14 05:25] LABS: BASOPHILS % (AUTO) 0.7 % (0.2-1.0); EOSINOPHILS # (AUTO) 0.1 x10^3/uL (0.0-0.2); HEMATOCRIT 27.8 % (36.0-47.0); HEMOGLOBIN 9.7 g/dL (12.0-16.0); LYMPHOCYTES # (AUTO) 0.7 X10^3/uL (1.3-2.9); LYMPHOCYTES % (AUTO) 11.2 % (21.0-51.0); MEAN CORPUSCULAR HEMOGLOBIN 35.6 pg (27.0-34.0); MEAN CORPUSCULAR VOLUME 101.7 fL (80.0-100.0); MEAN PLATELET VOLUME 8.1 fL (7.4-11.0); MONOCYTES # (AUTO) 0.6 x10^3/uL (0.3-0.8); MONOCYTES % (AUTO) 8.5 % (0.0-13.0); NEUTROPHILS # (AUTO) 5.1 x10^3/uL (2.2-4.8); NEUTROPHILS % (AUTO) 78.6 % (42.0-75.0); PLATELET COUNT 164 X10^3/uL (150.0-450.0); RED BLOOD COUNT 2.73 X10^6/uL (3.5-5.4); RED CELL DISTRIBUTION WIDTH 17.4 % (11.6-16.5); WHITE BLOOD COUNT 6.5 X10^3/uL (3.6-10.0)
[2020-12-14 05:41] LABS: ALANINE AMINOTRANSFERASE 49 Units/L (12-78); ALBUMIN 1.9 g/dL (3.4-5.0); ALKALINE PHOSPHATASE 84 Units/L (46-116); ASPARTATE AMINO TRANSFERASE 53 Units/L (15-37); BLOOD UREA NITROGEN 4 mg/dL (7-18); CALCIUM 7.6 mg/dL (8.5-10.1); CARBON DIOXIDE 39.6 mmol/L (21-32); CHLORIDE 104 mmol/L (98-107); COR CA(FOR HYPOALB) 9.3 mg/dL (8.5-10.1); CREATININE 0.31 mg/dL (0.55-1.02); SODIUM 144 mmol/L (136-145); TOTAL PROTEIN 5.7 g/dL (6.4-8.2); eGFR NON BLACK RACES > 60 (>60)
[2020-12-14] MEDS: ZOSYN VIAL 3.375 GRAMS 3.375 G in NS 50 ML IV + SPIKE MINIBAG* 50 ML IV SCH ×3 (05:45→21:10)
[2020-12-14] MEDS: XYLOCAINE OINT 5% 1 APPLIC, ZOVIRAX 1 APPLIC TOP SCH ×6 (05:45→21:10)
[2020-12-14] MEDS: K-RIDER 10 MEQ/NS 100 ML 10 MEQ/100 ML BAG IV PRN ×7 (06:19→23:36)
[2020-12-14] MEDS: PULMICORT NEB TX 0.5 MG NEB SCH ×2 (08:00→20:40)
[2020-12-14] MEDS: BROVANA IN SCH ×2 (08:00→20:40)
[2020-12-14] MEDS: KLONOPIN TAB 1 MG PO SCH ×2 (08:27→23:40)
[2020-12-14] MEDS: LEXAPRO PO SCH (08:27)
[2020-12-14] MEDS: LOVENOX INJ 30 MG SYR SC SCH ×2 (08:27→20:35)
[2020-12-14] MEDS: GLUCOPHAGE XR 24-HR PO SCH ×2 (08:27→23:40)
[2020-12-14] MEDS: FOLIC ACID TAB 1 MG PO SCH (08:27)
[2020-12-14] MEDS: ACTOS PO SCH (08:27)
[2020-12-14] MEDS: MAGIC MOUTHWASH MT SCH ×4 (08:28→23:41)
[2020-12-14] MEDS: NS IV SCH (08:29)
[2020-12-14] MEDS: PREDNISONE TAB 10 MG PO SCH (08:29)
[2020-12-14] MEDS: PEPCID TAB 40 MG PO SCH ×2 (08:29→23:43)
[2020-12-14] MEDS: NYSTATIN SUSP MT SCH ×4 (08:29→23:42)
[2020-12-14] MEDS: MVI IV SCH (08:29)
[2020-12-14] MEDS: SYNTHROID 25 mcg TAB PO SCH (08:29)
[2020-12-14] MEDS: NYSTATIN SUSP PO SCH ×4 (08:29→23:43)
[2020-12-14] MEDS: VSL#3 PO SCH ×2 (08:30→23:44)
[2020-12-14] MEDS: VITAMIN C PO SCH ×2 (08:30→23:44)
[2020-12-14] MEDS: VITAMIN D3 125 mcg (5,000 UNITS) PO SCH (08:30)
[2020-12-14] MEDS: VITAMIN A PO SCH (08:30)
[2020-12-14] MEDS ORDERED: VORICONAZOLE 200 MG in NS 50 ML IV + SPIKE MINIBAG* 50 ML IV SCH (09:00)
[2020-12-14] MEDS: AMBISOME 300 MG in D5W 250 ML IV 250 ML IV SCH (11:51)
[2020-12-14] MEDS: BENADRYL INJ 50 MG VIAL IVP SCH (11:51)
[2020-12-14] MEDS: ATIVAN INJ 2 MG VIAL IVP PRN (23:00)
[2020-12-14] MEDS: MELATONIN PO SCH (23:41)
[2020-12-15] MEDS: K-RIDER 10 MEQ/NS 100 ML 10 MEQ/100 ML BAG IV PRN ×6 (00:35→10:18)
[2020-12-15] MEDS: NS 1000 ML 1,000 ML IV SCH ×5 (03:09→23:33)
[2020-12-15] MEDS: ZOSYN VIAL 3.375 GRAMS 3.375 G in NS 50 ML IV + SPIKE MINIBAG* 50 ML IV SCH ×3 (06:10→22:00)
[2020-12-15] MEDS: XYLOCAINE OINT 5% 1 APPLIC, ZOVIRAX 1 APPLIC TOP SCH ×6 (06:15→22:00)
[2020-12-15 07:57] LABS: BASOPHILS % (AUTO) 0.7 % (0.2-1.0); EOSINOPHILS % (AUTO) 0.7 % (0.9-2.9); HEMOGLOBIN 10.3 g/dL (12.0-16.0); LYMPHOCYTES # (AUTO) 0.7 X10^3/uL (1.3-2.9); LYMPHOCYTES % (AUTO) 11.1 % (21.0-51.0); MEAN CORPUSCULAR HEMOGLOBIN 35.2 pg (27.0-34.0); MEAN CORPUSCULAR HGB CONC 34.2 g/dL (33.0-35.0); MEAN CORPUSCULAR VOLUME 102.8 fL (80.0-100.0); MONOCYTES # (AUTO) 0.7 x10^3/uL (0.3-0.8); MONOCYTES % (AUTO) 10.6 % (0.0-13.0); NEUTROPHILS # (AUTO) 4.8 x10^3/uL (2.2-4.8); NEUTROPHILS % (AUTO) 76.9 % (42.0-75.0); PLATELET COUNT 149 X10^3/uL (150.0-450.0); RED BLOOD COUNT 2.92 X10^6/uL (3.5-5.4); RED CELL DISTRIBUTION WIDTH 17.9 % (11.6-16.5); WHITE BLOOD COUNT 6.2 X10^3/uL (3.6-10.0)
[2020-12-15 08:06] LABS: ANISOCYTOSIS SLIGHT; BAND NEUTROPHILS % 3 % (0-10); HYPOCHROMASIA SLIGHT; METAMYELOCYTES % 3; PLATELET MORPHOLOGY COMMENT NORMAL (NORMAL)
[2020-12-15 08:22] LABS: ALANINE AMINOTRANSFERASE 49 Units/L (12-78); ALBUMIN 1.9 g/dL (3.4-5.0); ALKALINE PHOSPHATASE 89 Units/L (46-116); ASPARTATE AMINO TRANSFERASE 54 Units/L (15-37); BLOOD UREA NITROGEN 3 mg/dL (7-18); CALCIUM 7.9 mg/dL (8.5-10.1); CARBON DIOXIDE 38.7 mmol/L (21-32); CHLORIDE 104 mmol/L (98-107); COR CA(FOR HYPOALB) 9.6 mg/dL (8.5-10.1); CREATININE 0.31 mg/dL (0.55-1.02); SODIUM 144 mmol/L (136-145); TOTAL PROTEIN 5.8 g/dL (6.4-8.2); eGFR NON BLACK RACES > 60 (>60)
[2020-12-15] MEDS: LOVENOX INJ 30 MG SYR SC SCH ×2 (08:47→23:34)
[2020-12-15] MEDS: MVI IV SCH (08:47)
[2020-12-15] MEDS: NS IV SCH ×2 (08:47→22:00)
[2020-12-15] MEDS: FOLIC ACID TAB 1 MG PO SCH (08:52)
[2020-12-15] MEDS: ACTOS PO SCH (08:52)
[2020-12-15] MEDS: GLUCOPHAGE XR 24-HR PO SCH (08:52)
[2020-12-15] MEDS: LEXAPRO PO SCH (08:53)
[2020-12-15] MEDS: KLONOPIN TAB 1 MG PO SCH (08:53)
[2020-12-15] MEDS: SYNTHROID 25 mcg TAB PO SCH (08:53)
[2020-12-15] MEDS: NYSTATIN SUSP MT SCH (08:53)
[2020-12-15] MEDS: PEPCID TAB 40 MG PO SCH (08:53)
[2020-12-15] MEDS: NYSTATIN SUSP PO SCH (08:53)
[2020-12-15] MEDS: PREDNISONE TAB 10 MG PO SCH (08:53)
[2020-12-15] MEDS: MAGIC MOUTHWASH MT SCH (08:53)
[2020-12-15] MEDS: VITAMIN C PO SCH (08:54)
[2020-12-15] MEDS: VSL#3 PO SCH (08:54)
[2020-12-15] MEDS: VITAMIN D3 125 mcg (5,000 UNITS) PO SCH (08:54)
[2020-12-15] MEDS: VITAMIN A PO SCH (08:54)
[2020-12-15] MEDS: BROVANA IN SCH ×2 (09:25→20:04)
[2020-12-15] MEDS: PULMICORT NEB TX 0.5 MG NEB SCH ×2 (09:25→20:04)
[2020-12-15] MEDS: BENADRYL INJ 50 MG VIAL IVP SCH (12:13)
[2020-12-15] MEDS: AMBISOME 300 MG in D5W 250 ML IV 250 ML IV SCH (12:13)
[2020-12-15] MEDS: PEPCID 20 MG IV PREMIX* 20 MG/50 ML BAG IV SCH ×2 (14:13→22:00)
[2020-12-15] MEDS: ASCORBIC ACID MULTI IV SCH (22:00)
[2020-12-16 05:14] LABS: BASOPHILS % (AUTO) 0.7 % (0.2-1.0); EOSINOPHILS % (AUTO) 0.7 % (0.9-2.9); HEMOGLOBIN 10.2 g/dL (12.0-16.0); LYMPHOCYTES # (AUTO) 0.7 X10^3/uL (1.3-2.9); LYMPHOCYTES % (AUTO) 12.2 % (21.0-51.0); MEAN CORPUSCULAR HEMOGLOBIN 35.8 pg (27.0-34.0); MEAN CORPUSCULAR VOLUME 102.2 fL (80.0-100.0); MONOCYTES # (AUTO) 0.6 x10^3/uL (0.3-0.8); MONOCYTES % (AUTO) 10.2 % (0.0-13.0); NEUTROPHILS # (AUTO) 4.3 x10^3/uL (2.2-4.8); NEUTROPHILS % (AUTO) 76.2 % (42.0-75.0); PLATELET COUNT 137 X10^3/uL (150.0-450.0); RED BLOOD COUNT 2.84 X10^6/uL (3.5-5.4); RED CELL DISTRIBUTION WIDTH 17.4 % (11.6-16.5); WHITE BLOOD COUNT 5.7 X10^3/uL (3.6-10.0)
[2020-12-16 05:18] LABS: ALANINE AMINOTRANSFERASE 47 Units/L (12-78); ALBUMIN 1.9 g/dL (3.4-5.0); ALKALINE PHOSPHATASE 87 Units/L (46-116); ASPARTATE AMINO TRANSFERASE 48 Units/L (15-37); BLOOD UREA NITROGEN 4 mg/dL (7-18); CARBON DIOXIDE 38.3 mmol/L (21-32); CHLORIDE 105 mmol/L (98-107); COR CA(FOR HYPOALB) 9.7 mg/dL (8.5-10.1); SODIUM 148 mmol/L (136-145); TOTAL PROTEIN 5.8 g/dL (6.4-8.2); eGFR NON BLACK RACES > 60 (>60)
[2020-12-16 05:59] LABS: PLATELET MORPHOLOGY COMMENT NORMAL (NORMAL)
[2020-12-16] MEDS: XYLOCAINE OINT 5% 1 APPLIC, ZOVIRAX 1 APPLIC TOP SCH ×6 (06:10→21:30)
[2020-12-16] MEDS: ZOSYN VIAL 3.375 GRAMS 3.375 G in NS 50 ML IV + SPIKE MINIBAG* 50 ML IV SCH ×3 (06:10→21:56)
[2020-12-16] MEDS: NS 1000 ML 1,000 ML IV SCH ×5 (06:22→17:32)
[2020-12-16] MEDS: K-RIDER 10 MEQ/NS 100 ML 10 MEQ/100 ML BAG IV PRN ×2 (06:30→07:44)
[2020-12-16] MEDS: LOVENOX INJ 30 MG SYR SC SCH ×2 (09:00→20:14)
[2020-12-16] MEDS: PEPCID 20 MG IV PREMIX* 20 MG/50 ML BAG IV SCH ×2 (09:01→20:14)
[2020-12-16] MEDS: BROVANA IN SCH ×2 (09:20→20:11)
[2020-12-16] MEDS: PULMICORT NEB TX 0.5 MG NEB SCH ×2 (09:20→20:11)
[2020-12-16] MEDS: MVI IV SCH (09:59)
[2020-12-16] MEDS: NS IV SCH ×3 (09:59→20:13)
[2020-12-16] MEDS: ASCORBIC ACID MULTI IV SCH ×2 (09:59→20:13)
[2020-12-16] MEDS: BENADRYL INJ 50 MG VIAL IVP SCH (11:25)
[2020-12-16] MEDS: AMBISOME 300 MG in D5W 250 ML IV 250 ML IV SCH (12:18)
[2020-12-16] MEDS: ATIVAN INJ 2 MG VIAL IVP PRN (23:43)
[2020-12-17] MEDS: K-RIDER 10 MEQ/NS 100 ML 10 MEQ/100 ML BAG IV PRN ×7 (00:52→23:32)
[2020-12-17] MEDS: NS 1000 ML 1,000 ML IV SCH ×5 (02:19→13:39)
[2020-12-17 04:41] LABS: ABG BASE EXCESS 18.5 mmol/L (-2.0-2.0)
[2020-12-17 04:43] LABS: ABG HCO3 46.7 mmol/L (22-26)
[2020-12-17 04:44] LABS: ABG ALLEN TEST POS
[2020-12-17 05:11] LABS: BASOPHILS % (AUTO) 0.4 % (0.2-1.0); EOSINOPHILS % (AUTO) 0.2 % (0.9-2.9); HEMATOCRIT 27.6 % (36.0-47.0); HEMOGLOBIN 9.7 g/dL (12.0-16.0); LYMPHOCYTES # (AUTO) 0.8 X10^3/uL (1.3-2.9); LYMPHOCYTES % (AUTO) 10.8 % (21.0-51.0); MEAN CORPUSCULAR HEMOGLOBIN 35.6 pg (27.0-34.0); MEAN CORPUSCULAR HGB CONC 35.1 g/dL (33.0-35.0); MEAN CORPUSCULAR VOLUME 101.3 fL (80.0-100.0); MEAN PLATELET VOLUME 8.4 fL (7.4-11.0); MONOCYTES # (AUTO) 0.8 x10^3/uL (0.3-0.8); MONOCYTES % (AUTO) 10.8 % (0.0-13.0); NEUTROPHILS # (AUTO) 5.4 x10^3/uL (2.2-4.8); NEUTROPHILS % (AUTO) 77.8 % (42.0-75.0); PLATELET COUNT 130 X10^3/uL (150.0-450.0); RED BLOOD COUNT 2.72 X10^6/uL (3.5-5.4); RED CELL DISTRIBUTION WIDTH 17.4 % (11.6-16.5); WHITE BLOOD COUNT 6.9 X10^3/uL (3.6-10.0)
[2020-12-17 05:19] LABS: ALANINE AMINOTRANSFERASE 50 Units/L (12-78); ALBUMIN 1.9 g/dL (3.4-5.0); ALKALINE PHOSPHATASE 92 Units/L (46-116); ASPARTATE AMINO TRANSFERASE 51 Units/L (15-37); BLOOD UREA NITROGEN 4 mg/dL (7-18); CALCIUM 8.3 mg/dL (8.5-10.1); CHLORIDE 104 mmol/L (98-107); CREATININE 0.33 mg/dL (0.55-1.02); TOTAL PROTEIN 5.7 g/dL (6.4-8.2); eGFR NON BLACK RACES > 60 (>60)
[2020-12-17 05:23] LABS: SODIUM 150 mmol/L (136-145)
[2020-12-17 05:24] LABS: CARBON DIOXIDE 40.5 mmol/L (21-32)
[2020-12-17] MEDS: ZOSYN VIAL 3.375 GRAMS 3.375 G in NS 50 ML IV + SPIKE MINIBAG* 50 ML IV SCH ×3 (06:03→22:21)
[2020-12-17] MEDS: XYLOCAINE OINT 5% 1 APPLIC, ZOVIRAX 1 APPLIC TOP SCH ×6 (06:04→21:46)
--- NOTE | 2020-12-17 06:18 | RAD ---
HISTORYCOVID-19 pneumoniaSTUDYAP [id number]/29/2021FINDINGSThere is interval progression of diffuse, confluent bilateral airspace disease filling both lungs. The cardiac margins are partly obscured. There is no evidence for obvious pleural fluid or pneumothorax.IMPRESSIONIncreasing bilateral pulmonary opacities consistent with progressive pneumonia and/or pulmonary edema.Electronically signed by: MIGUEL MINAYA (Dec 17, 2020 06:16:20)
[2020-12-17] MEDS ORDERED: NS 1/2 1000 ML IV 1,000 ML IV ONE ×2 (07:23→16:16)
[2020-12-17] MEDS: NS 1/2 1000 ML IV 1,000 ML IV SCH ×2 (07:34→23:33)
[2020-12-17] MEDS: NS IV SCH ×3 (08:35→20:20)
[2020-12-17] MEDS: ASCORBIC ACID MULTI IV SCH ×2 (08:35→20:20)
[2020-12-17] MEDS: LOVENOX INJ 30 MG SYR SC SCH ×2 (08:35→20:23)
[2020-12-17] MEDS: BROVANA IN SCH ×2 (09:20→21:00)
[2020-12-17] MEDS: PULMICORT NEB TX 0.5 MG NEB SCH ×2 (09:20→21:00)
[2020-12-17] MEDS: PEPCID 20 MG IV PREMIX* 20 MG/50 ML BAG IV SCH ×2 (09:21→20:24)
[2020-12-17] MEDS: BENADRYL INJ 50 MG VIAL IVP SCH (11:00)
[2020-12-17] MEDS: AMBISOME 300 MG in D5W 250 ML IV 250 ML IV SCH (11:17)
[2020-12-17] MEDS: MVI IV SCH (11:17)
--- NOTE | 2020-12-17 11:43 | RAD ---
HISTORYCentral line placementSTUDYSingle-view [id number]/03/2021FINDINGSThe trachea is midline. The cardiac silhouette is accentuated by portable technique. A right-sided central venous catheter with tip projecting to the right atrium is observed. Scattered interstitial lung changes throughout the right and left chest are observed with developing consolidation of the right and left base. The bony thorax is unremarkable.IMPRESSIONInterval placement of a right-sided central venous catheter. Stable airspace opacities and interstitial lung changes of the right and left ron thorax.Electronically signed by: THOMAS ROBERSON (Dec 17, 2020 11:40:50)
[2020-12-17] MEDS ORDERED: SALINE 0.9% 3 ML NEB TX ONE (12:01)
[2020-12-17] MEDS ORDERED: MUCOMYST 20% 200 MG/ML NEB SCH (13:00)
[2020-12-17] MEDS: ATIVAN INJ 2 MG VIAL IVP PRN (20:21)
[2020-12-17] MEDS: MUCOMYST 20% 200 MG/ML NEB SCH (21:00)
[2020-12-18] MEDS: K-RIDER 10 MEQ/NS 100 ML 10 MEQ/100 ML BAG IV PRN ×5 (00:10→05:10)
[2020-12-18] MEDS: XYLOCAINE OINT 5% 1 APPLIC, ZOVIRAX 1 APPLIC TOP SCH ×4 (05:10→13:07)
[2020-12-18] MEDS: ZOSYN VIAL 3.375 GRAMS 3.375 G in NS 50 ML IV + SPIKE MINIBAG* 50 ML IV SCH ×2 (05:10→14:25)
[2020-12-18 05:41] LABS: ABG BASE EXCESS 19.5 mmol/L (-2.0-2.0); ABG HCO3 44.6 mmol/L (22-26)
[2020-12-18 05:42] LABS: ABG ALLEN TEST POS
[2020-12-18 06:28] LABS: BASOPHILS % (AUTO) 0.5 % (0.2-1.0); EOSINOPHILS % (AUTO) 0.4 % (0.9-2.9); HEMATOCRIT 29.9 % (36.0-47.0); HEMOGLOBIN 10.4 g/dL (12.0-16.0); LYMPHOCYTES % (AUTO) 11.8 % (21.0-51.0); MEAN CORPUSCULAR HGB CONC 34.7 g/dL (33.0-35.0); MEAN CORPUSCULAR VOLUME 100.9 fL (80.0-100.0); MEAN PLATELET VOLUME 8.8 fL (7.4-11.0); MONOCYTES # (AUTO) 0.8 x10^3/uL (0.3-0.8); MONOCYTES % (AUTO) 9.6 % (0.0-13.0); NEUTROPHILS # (AUTO) 6.6 x10^3/uL (2.2-4.8); NEUTROPHILS % (AUTO) 77.7 % (42.0-75.0); PLATELET COUNT 131 X10^3/uL (150.0-450.0); RED BLOOD COUNT 2.96 X10^6/uL (3.5-5.4); RED CELL DISTRIBUTION WIDTH 17.4 % (11.6-16.5); WHITE BLOOD COUNT 8.5 X10^3/uL (3.6-10.0)
[2020-12-18 06:31] LABS: ALANINE AMINOTRANSFERASE 53 Units/L (12-78); ALBUMIN 2.1 g/dL (3.4-5.0); ALKALINE PHOSPHATASE 112 Units/L (46-116); ASPARTATE AMINO TRANSFERASE 54 Units/L (15-37); BLOOD UREA NITROGEN 7 mg/dL (7-18); CALCIUM 8.7 mg/dL (8.5-10.1); CARBON DIOXIDE 35.5 mmol/L (21-32); CHLORIDE 103 mmol/L (98-107); COR CA(FOR HYPOALB) 10.2 mg/dL (8.5-10.1); CREATININE 0.44 mg/dL (0.55-1.02); SODIUM 147 mmol/L (136-145); TOTAL PROTEIN 6.2 g/dL (6.4-8.2); eGFR NON BLACK RACES > 60 (>60)
--- NOTE | 2020-12-18 06:36 | RAD ---
HISTORYHypoxiaSTUDYAP [id number]/03/2021FINDINGSThere is no change in appearance of heart or lungs. Similar extent and distribution diffuse bilateral airspace disease without evidence for developing pneumothorax. No large pleural effusion is identified. Right subclavian line is stable in position.IMPRESSIONNo change in appearance of the bilateral pneumonia.Electronically signed by: MIGUEL MINAYA (Dec 18, 2020 06:33:48)
[2020-12-18] MEDS ORDERED: POTASSIUM ACETATE IV ONE ×2 (08:01)
[2020-12-18] MEDS ORDERED: NS IV ONE ×2 (08:01)
[2020-12-18] MEDS: ASCORBIC ACID MULTI IV SCH (08:33)
[2020-12-18] MEDS: LOVENOX INJ 30 MG SYR SC SCH (08:33)
[2020-12-18] MEDS: NS IV SCH ×2 (08:33→11:29)
[2020-12-18] MEDS: NS 1/2 1000 ML IV 1,000 ML IV SCH (08:35)
[2020-12-18] MEDS: MUCOMYST 20% 200 MG/ML NEB SCH (09:35)
[2020-12-18] MEDS: BROVANA IN SCH (09:35)
[2020-12-18] MEDS: PULMICORT NEB TX 0.5 MG NEB SCH (09:35)
[2020-12-18] MEDS: PEPCID 20 MG IV PREMIX* 20 MG/50 ML BAG IV SCH (10:04)
[2020-12-18] MEDS: MVI IV SCH (11:29)
[2020-12-18 11:31] LABS: ABG BASE EXCESS 17.8 mmol/L (-2.0-2.0)
[2020-12-18 11:33] LABS: ABG ALLEN TEST POS; ABG HCO3 44.8 mmol/L (22-26)
[2020-12-18] MEDS: NS 1000 ML 1,000 ML IV SCH ×2 (11:35→14:24)
[2020-12-18] MEDS: BENADRYL INJ 50 MG VIAL IVP SCH (11:45)
[2020-12-18] MEDS: AMBISOME 300 MG in D5W 250 ML IV 250 ML IV SCH (12:38)
[2020-12-18] MEDS: ATIVAN INJ 2 MG VIAL IVP PRN (15:37)
[2020-12-18 16:07] VITALS: BP 105/55
[2020-12-18] MEDS ORDERED: MORPHINE SULFATE INJ 2 MG INJ IVP PRN (16:58)
[2020-12-18] MEDS ORDERED: MORPHINE SULFATE INJ 2 MG INJ ONE (17:00)
[2020-12-18] MEDS ORDERED: ATIVAN INJ 2 MG VIAL ONE (17:38)
== END 2020-12-18 18:00 | disposition short-term general hospital (02) | DRG 177 ==
LOC: ER 19:52 → OBS 11-07 03:06 → MED/SURG 11-07 18:33 → ICU 11-16 17:55
PROVIDERS: ADMIT Obstetrics & Gynecology Obstetrics; ATTEND Obstetrics & Gynecology Obstetrics
DX: I87.2 Venous insufficiency (chronic) (peripheral); J15.8 Pneumonia due to other specified bacteria; J12.81 Pneumonia due to SARS-associated coronavirus; I49.8 Other specified cardiac arrhythmias; E87.6 Hypokalemia; B96.1 Klebsiella pneumoniae [K. pneumoniae] as the cause of diseases classified elsewhere; L89.159 Pressure ulcer of sacral region, unspecified stage; I10 Essential (primary) hypertension; E66.9 Obesity, unspecified; E88.09 Other disorders of plasma-protein metabolism, not elsewhere classified; N39.0 Urinary tract infection, site not specified; F41.9 Anxiety disorder, unspecified; J96.01 Acute respiratory failure with hypoxia; U07.1 COVID-19